=== PATIENT | female | born 1980 | race Caucasian/White ===

== ENCOUNTER 2018-03-30 11:36 | Inpatient (IN) | payer OTHER ==
[2018-03-30 12:08] VITALS: BMI 31.5
--- NOTE | 2018-03-30 13:47 | HP ---
COWS - Scale Resting Pulse: 0= [place] 80 or Below Sweatin=Flushed/Facial Moisture Restless Observation: 1= Difficult to Sit Still Pupil Size: 0= Normal to Room Light Bone or Joint Aches: 1= Mild Discomfort Runny Nose/ Eye Tearin= Runny Nose/Eyes GI Upset > 30mins: 1= Stomach Cramp Tremor Observation: 2= Slight Tremor Visible Yawning Observation: 1= 1-2x During Session Anxiety or Irritability: 1=Feels Anxious/Irritable Goose Flesh Skin: 3=Piloerection COWS Score: 14 CIWA Score - CIWA Score Nausea/Vomitin Muscle Tremors: 3 Anxiety: 3 Agitation: 3 Paroxysmal Sweats: 2 Orientation: 0-Oriented Tacttile Disturbances: 0-None Auditory Disturbances: 0-None Visual Disturbances: 0-None Headache: 0-None Present CIWA-Ar Total Score: 13 Admission ROS [facility] - HPI Chief Complaint: "i want to get clean" Allergies/Adverse Reactions: Allergies Allergy/AdvReac Type Severity Reaction Status Date / Time No Known Allergies Allergy Verified 03/30/18 13:40 History of Present Illness: 37 y/o with a ten yr hx of drug addiction presents requesting detox from alcohol , heroin. This is pt's first visit here but has been in previous detox. Endorses a 10 month sober period last yr due to being in [facility]. Pt's utox positive for Fentanyl, MTD and Bzo. Pt denies intentional ingestion of any of these, stating "it was probably cut from the dope" Hx of HTN, Anxiety/depression/bipolar (not on meds). Denies past nor curent SI/HI. Exam Limitations: No Limitations - Ebola screening Have you traveled outside of the country in the last 21 days: No Have you had contact with anyone from an Ebola affected area: No Have you been sick,other than usual withdrawal symptoms: No Do you have a fever: No - Review of Systems Constitutional: No Symptoms Reported EENT: reports: Blurred Vision (wears glasses but does not have them with her) Respiratory: reports: No Symptoms reported Cardiac: reports: No Symptoms Reported GI: reports: No Symptoms Reported : reports: No Symptoms Reported Musculoskeletal: reports: No Symptoms Reported Integumentary: reports: No Symptoms Reported Neuro: reports: No Symptoms reported Endocrine: reports: No Symptoms Reported Hematology: reports: Easy Bruising Psychiatric: reports: Judgement Intact, Mood/Affect Appropiate, Orientated x3 Other Systems: Reviewed and Negative Patient History - Patient Medical History Hx Anemia: No Hx Asthma: No Hx Chronic Obstructive Pulmonary Disease (COPD): No Hx Cancer: No Hx Cardiac Disorders: No Hx Congestive Heart Failure: No Hx Hypertension: No Hx Hypercholesterolemia: No Hx Pacemaker: No HX Cerebrovascular Accident: No Hx Seizures: No Hx Dementia: No Hx Diabetes: No Hx Gastrointestinal Disorders: No Hx Liver Disease: No Hx Genitourinary Disorders: No Hx Sexually Transmitted Disorders: Yes (Chlamydia "years ago") Hx Renal Disease (ESRD): No Hx Thyroid Disease: No Hx Human Immunodeficiency Virus (HIV): No (negative - last tested December 2017) Hx Hepatitis C: No Hx Depression: Yes (not on meds) Hx Suicide Attempt: No (Denies) Hx Bipolar Disorder: Yes (not on meds) Hx Schizophrenia: No - Patient Surgical History Past Surgical History: No Hx Neurologic Surgery: No Hx Cataract Extraction: No Hx Cardiac Surgery: No Hx Lung Surgery: No Hx Breast Surgery: No Hx Breast Biopsy: No Hx Abdominal Surgery: No Hx Appendectomy: No Hx Cholecystectomy: No Hx Genitourinary Surgery: No Hx Section: No Hx Orthopedic Surgery: No Hx Hysterectomy: No Other Surgical History: c/section x 2007 Anesthesia Reaction: No - PPD History Previous Implant?: No Documented Results: Negative w/o proof Implanted On Prior R Admission?: No PPD to be Administered?: Yes - Reproductive History Patient is a Female of Child Bearing Age (11 -55 yrs old): Yes Last Menstrual Period: 03/12/18 Patient : No - Smoking Cessation Smoking history: Former smoker Have you smoked in the past 12 months: No Initiated information on smoking cessation: Yes 'Breaking Loose' booklet given: 03/30/18 - Substance & Tx. History Hx Alcohol Use: Yes Hx Substance Use: Yes Substance Use Type: Alcohol, Cocaine, Heroin Hx Substance Use Treatment: Yes - Substances Abused Alcohol Route: Oral Frequency: Daily Amount used: A pint of vodka; 4(24 oz ) beer Age of first use: 27 Date of Last Use: 03/29/18 Heroin Route: Inhalation Frequency: Daily Amount used: 10 bags (1 bundle) Age of first use: 27 Date of Last Use: 03/30/18 Crack Route: Smoking Frequency: Daily Amount used: $100 Age of first use: 31 Date of Last Use: 03/30/18 Family Disease History - Family Disease History Family Disease History: Other: Father (Alcohol), Mother (Acohol), Brother ( heroin) Admission Physical Exam [facility] - Vital Signs Vital Signs: Vital Signs - 24 hr 03/30/18 12:02 Temperature 97.9 F Pulse Rate 72 Respiratory 20 Rate Blood Pressure 151/91 - Physical General Appearance: Yes: Mild Distress HEENTM: Yes: Within Normal Limits Respiratory: Yes: Within Normal Limits, No Respiratory Distress, No Accessory Muscle Use Neck: Yes: No masses,lesions,Nodules, Trachea in good position Breast: Yes: Breast Exam Deferred Cardiology: Yes: Regular Rate Abdominal: Yes: Normal Bowel Sounds, Non Tender, Soft, Distended Genitourinary: Yes: Within Normal Limits Back: Yes: Within Normal Limits, Normal Inspection Musculoskeletal: Yes: full range of Motion, Gait Steady Extremities: Yes: Within Normal Limits, Normal Capillary Refill, Normal Range of Motion Neurological: Yes: Within Normal Limits, Fully Oriented, Alert, Motor Strength 5 /5, Normal Mood/Affect Integumentary: Yes: Within Normal Limits Lymphatic: Yes: Within Normal Limits - Diagnostic (1) Uncomplicated opioid dependence Current Visit: Yes Status: Acute (2) Alcohol dependence, uncomplicated Current Visit: Yes Status: Acute (3) Cocaine dependence, uncomplicated Current Visit: Yes Status: Acute (4) Hx of essential hypertension Current Visit: Yes Status: Suspected (5) Drug-induced mood disorder Current Visit: Yes Status: Suspected (6) Anxiety and depression Current Visit: Yes Status: Suspected Cleared for Admission [facility] - Detox or Rehab [facility] Level of Care: Medically Managed Detox Regimen/Protocol: Methadone/Librium [facility] Breath Alcohol Content Breath Alcohol Content: 0 Urine Pregancy Test - Result Urine Test Results: Negative- NO Line Present Urine Drug Screen - Results Drug Screen Negative: No Urine Drug Screen Results: TIFFANY-Cocaine, BZO-Benzodiazepines, MTD-Methadone, FEN- Fentanyl
[2018-03-30] MEDS ORDERED: MAGNESIUM CITRATE 300 ML BOTTLE PO PRN (14:14)
[2018-03-30] MEDS ORDERED: chlordiazePOXIDE HCL 25 MG CAPSULE PO PRN (14:14)
[2018-03-30] MEDS ORDERED: LOPERAMIDE HCL 2 MG CAPSULE PO PRN (14:14)
[2018-03-30] MEDS ORDERED: P-EPHED 60MG/TRIPROLIDI 2.5MG TABLET PO PRN (14:14)
[2018-03-30] MEDS ORDERED: IBUPROFEN 400 MG TABLET (FP) PO PRN (14:14)
[2018-03-30] MEDS ORDERED: METHADONE HCL 10 MG TABLET (FOR DETOX USE ONLY) PO ONE ×2 (14:14→23:00)
[2018-03-30] MEDS ORDERED: MENTHOL/PHENOL 1 EACH UD MM PRN (14:14)
[2018-03-30] MEDS ORDERED: guaiFENesin/D-METHORPHAN HB 10 ML UNIT-DOSE CUPS PO PRN (14:14)
[2018-03-30] MEDS ORDERED: MAG HYDROX/AL HYDROX/SIMETH 30 ML UNIT-DOSE CUP PO PRN (14:14)
[2018-03-30] MEDS ORDERED: ACETAMINOPHEN 325 MG TABLET (FP) PO PRN (14:14)
[2018-03-30] MEDS ORDERED: MAGNESIUM HYDROX 2400MG/30ML ORAL SUSPENSION 30 ML CUP PO PRN (14:14)
--- NOTE | 2018-03-30 14:20 | PN ---
[facility] Progress Note Note: pt states she was on meds for HTN previously but her doctor took her off since 2013 when "I lost a lot of weight". Has not been on any HTN drugs since then. Also reports not being on meds for her psych hx for a long time s/p "I have been using".
[2018-03-30 17:51] LABS: URINE APPEARANCE SLCLOUDY; URINE BILIRUBIN NEGATIVE (<2.0 mg/dL); URINE COLOR LTYELLOW; URINE GLUCOSE (UA) NEGATIVE (NEGATIVE); URINE KETONE NEGATIVE (NEGATIVE); URINE LEUK ESTERASE TRACE (NEGATIVE); URINE NITRITE NEGATIVE (NEGATIVE); URINE PROTEIN NEGATIVE (NEGATIVE); URINE UROBILINOGEN NEGATIVE mg/dL (0.2-1.0)
[2018-03-30 17:56] LABS: EPI CELLS FEW /HPF (FEW); URINE MUCUS RARE
[2018-03-30] MEDS: chlordiazePOXIDE HCL 25 MG CAPSULE PO SCH ×2 (18:27→22:32)
[2018-03-30] MEDS: THIAMINE HCL 100 MG TABLET (FP) PO SCH (22:31)
[2018-03-31] MEDS: chlordiazePOXIDE HCL 25 MG CAPSULE PO SCH ×4 (05:33→22:16)
--- NOTE | 2018-03-31 08:49 | CONSULT ---
[facility] Psychiatric Consult - Data Date of interview: 03/31/18 Admission source: [facility] Identifying data: This is a 37 years old femlale, single mother of four, homeless, unemployed , on PA, with no psychiatric hospitalization history, reports withdrawal symptoms and seeking detox,. Denies suicidal, homicidal history. Substance Abuse History: - Smoking Cessation. Smoking history: Former smoker. Have you smoked in the past 12 months: No. Initiated information on smoking cessation: Yes. 'Breaking Loose' booklet given: 03/30/18. - Substance & Tx. History. Hx Alcohol Use: Yes. Hx Substance Use: Yes. Substance Use Type: Alcohol, Cocaine, Heroin. Hx Substance Use Treatment: Yes. - Substances Abused. Alcohol. Route: Oral. Frequency: Daily. Amount used: A pint of vodka; 4(24 oz ) beer. Age of first use: 27. Date of Last Use: 03/29/18. Heroin. Route: Inhalation. Frequency: Daily. Amount used: 10 bags (1 bundle) . Age of first use: 27. Date of Last Use: 03/30/18. Crack. Route: Smoking. Frequency: Daily. Amount used: $100. Age of first use: 31. Date of Last Use: 03/30/18 Medical History: HTN Psychiatric History: Patient reports history of depression, reports no medications taking prior to admission, denies sucidal and homicidal history. As per outpatint psychiatrist patient taking priorto admission: Gabapentin 600mg po tid Physical/Sexual Abuse/Trauma History: Denies Additional Comment: Observation. Detox Unit Care Protocol Psychiatric Findings - Problem List ([place] 1, 2,3) (1) Alcohol dependence, uncomplicated Current Visit: Yes Status: Acute (2) Cocaine dependence, uncomplicated Current Visit: Yes Status: Acute (3) Uncomplicated opioid dependence Current Visit: Yes Status: Acute (4) Anxiety and depression Current Visit: Yes Status: Suspected (5) Drug-induced mood disorder Current Visit: Yes Status: Suspected - Initial Treatment Plan Initial Treatment Plan: Observation. Detox Unit Care Protocol. Gabapentin 600mg po tid
[2018-03-31] MEDS ORDERED: METHADONE HCL 10 MG TABLET (FOR DETOX USE ONLY) PO SCH (10:00)
[2018-03-31] MEDS: PRENATAL VITAMINS W/ FOLIC ACID TABLET (FP) PO SCH (10:03)
--- NOTE | 2018-03-31 11:09 | PN ---
[facility] CIWA - CIWA Score Nausea/Vomitin-No Nausea/No Vomiting Muscle Tremors: 3 Anxiety: 3 Agitation: 4-Moderately Restless Paroxysmal Sweats: 3 Orientation: 0-Oriented Tacttile Disturbances: 0-None Auditory Disturbances: 0-None Visual Disturbances: 0-None Headache: 0-None Present CIWA-Ar Total Score: 13 [facility] COWS - Scale Resting Pulse: 0= [place] 80 or Below Sweatin=Flushed/Facial Moisture Restless Observation: 1= Difficult to Sit Still Pupil Size: 0= Normal to Room Light Bone or Joint Aches: 2= Severe Diffuse Aches Runny Nose/ Eye Tearin= Runny Nose/Eyes GI Upset > 30mins: 0= None Tremor Observation of Outstretched Hands: 2= Slight Tremor Visible Yawning Observation: 2= >3x During Session Anxiety or Irritability: 2=Irritable/Anxious Goose Flesh Skin: 0=Smooth Skin COWS Score: 13 S Progress Note (SOAP) Subjective: irritable agitation anxiety body aches interrupted sleep sweats Objective: 03/31/18 11:04 Vital Signs Temperature 98.1 F 03/31/18 09:42 Pulse Rate 72 03/31/18 09:42 Respiratory Rate 18 03/31/18 09:42 Blood Pressure 125/64 03/31/18 09:42 O2 Sat by Pulse Oximetry (%) Laboratory Tests 03/30/18 15:34 Urine Color Ltyellow Urine Appearance Slcloudy Urine pH 5.0 Ur Specific [place] 1.017 Urine Protein Negative Urine Glucose (UA) Negative Urine Ketones Negative Urine Blood Negative Urine Nitrite Negative Urine Bilirubin Negative Urine Urobilinogen Negative Ur Leukocyte Esterase Trace Urine WBC (Auto) 4 Urine RBC (Auto) 1 Ur Epithelial Cells Few Urine Mucus Rare rest of labs pending repeat u/a aaox3 ambulating no acute distress Assessment: 03/31/18 11:05 withdrawal sx Plan: continue detox increase fluids clonidine 0.1 daily with parameters
[2018-03-31 11:14] LABS: HEMATOCRIT 34.5 % (32.4-45.2); HEMOGLOBIN 11.1 GM/dL (10.7-15.3); MCH 26.9 pg (25.7-33.7); MCHC 32.1 g/dl (32.0-36.0); MEAN CELL VOLUME 83.7 fl (80-96); MEAN PLT VOLUME 8.3 fl (7.5-11.1); PLATELET COUNT 223 K/MM3 (134-434); RBC 4.12 M/mm3 (3.60-5.2); RDW 14.3 % (11.6-15.6); WHITE BLOOD COUNT 6.9 K/mm3 (4.0-10.0)
[2018-03-31 11:44] LABS: ALBUMIN 3.1 g/dl (3.4-5.0); ALK PHOS 97 U/L (45-117); ANION GAP 7 MMOL/L (8-16); BILIRUBIN,TOTAL 0.2 mg/dL (0.2-1); BLOOD UREA NITROGEN 24 mg/dL (7-18); CALCIUM 8.3 mg/dL (8.5-10.1); CHLORIDE 107 mmol/L (98-107); CO2 26 mmol/L (21-32); CREATININE 0.5 mg/dL (0.55-1.3); GLUCOSE,RANDOM 79 mg/dL (74-106); POTASSIUM 4.4 mmol/L (3.5-5.1); SGOT/AST 14 U/L (15-37); SGPT/ALT 40 U/L (13-61); SODIUM 140 mmol/L (136-145)
[2018-03-31] MEDS: cloNIDine HCL 0.1 MG TABLET PO SCH (12:04)
[2018-03-31] MEDS: GABAPENTIN 300 MG CAPSULE (FP) PO SCH ×2 (15:59→22:16)
--- NOTE | 2018-03-31 21:33 | EKG ---
Test Reason : Blood Pressure : / mmHG Vent. Rate : 070 BPM Atrial Rate : 070 BPM P-R Int : 152 ms QRS Dur : 102 ms QT Int : 412 ms P-R-T Axes : 065 057 032 degrees QTc Int : 444 ms NORMAL SINUS RHYTHM MINIMAL VOLTAGE CRITERIA FOR LVH, MAY BE NORMAL VARIANT BORDERLINE ECG NO PREVIOUS ECGS AVAILABLE Confirmed by JAYDE JESUS, CLINTON ([id number]) on 03/31/2018 9:32:46 PM Referred By: Loree Saba Confirmed By:CLINTON DONOHUE MD
[2018-03-31] MEDS: THIAMINE HCL 100 MG TABLET (FP) PO SCH (22:16)
[2018-03-31] MEDS: MELATONIN 5 MG TABLETS PO PRN (22:16)
[2018-04-01] MEDS: chlordiazePOXIDE HCL 25 MG CAPSULE PO SCH ×2 (05:58→10:24)
[2018-04-01] MEDS: GABAPENTIN 300 MG CAPSULE (FP) PO SCH ×3 (05:58→22:20)
[2018-04-01] MEDS: cloNIDine HCL 0.1 MG TABLET PO SCH (10:24)
[2018-04-01] MEDS: METHADONE HCL 5 MG TABLET (FOR DETOX USE ONLY) PO SCH (10:24)
[2018-04-01] MEDS: PRENATAL VITAMINS W/ FOLIC ACID TABLET (FP) PO SCH (10:24)
[2018-04-01] MEDS ORDERED: FLU VACCINE QUAD 60 MCG/0.5 ML (MDV 18-19) IM ONE (12:00)
[2018-04-01] MEDS ORDERED: PNEUMOCOCCAL 23 VACCINE 0.5 ML VIAL IM ONE (12:00)
[2018-04-01] MEDS ORDERED: PNEUMOC 13-VAL CONJ-DIP CRM/PF 0.5 ML DISP.SYRIN IM ONE (12:06)
--- NOTE | 2018-04-01 12:10 | PN ---
[facility] CIWA - CIWA Score Nausea/Vomitin-No Nausea/No Vomiting Muscle Tremors: 3 Anxiety: 2 Agitation: 3 Paroxysmal Sweats: 3 Orientation: 0-Oriented Tacttile Disturbances: 0-None Auditory Disturbances: 0-None Visual Disturbances: 0-None Headache: 0-None Present CIWA-Ar Total Score: 11 S COWS - Scale Resting Pulse: 1= [place] 81-100 Sweatin=Flushed/Facial Moisture Restless Observation: 1= Difficult to Sit Still Pupil Size: 0= Normal to Room Light Bone or Joint Aches: 1= Mild Discomfort Runny Nose/ Eye Tearin= Nasal Congestion GI Upset > 30mins: 0= None Tremor Observation of Outstretched Hands: 2= Slight Tremor Visible Yawning Observation: 1= 1-2x During Session Anxiety or Irritability: 2=Irritable/Anxious Goose Flesh Skin: 0=Smooth Skin COWS Score: 11 [facility] Progress Note (SOAP) Subjective: sweats irritable agitation anxiety Objective: 04/01/18 12:09 Vital Signs Temperature 98.8 F 04/01/18 09:31 Pulse Rate 87 04/01/18 09:31 Respiratory Rate 18 04/01/18 09:31 Blood Pressure 135/85 04/01/18 09:31 O2 Sat by Pulse Oximetry (%) Laboratory Tests 03/30/18 03/31/18 03/31/18 15:34 07:20 07:20 WBC 6.9 RBC 4.12 Hgb 11.1 Hct 34.5 MCV 83.7 MCH 26.9 MCHC 32.1 RDW 14.3 Plt Count 223 MPV 8.3 Sodium 140 Potassium 4.4 Chloride 107 Carbon Dioxide 26 Anion Gap 7 L BUN 24 H Creatinine 0.5 L Creat Clearance w eGFR > 60 Random Glucose 79 Calcium 8.3 L Total Bilirubin 0.2 AST 14 L ALT 40 Alkaline Phosphatase 97 Total Protein 6.0 L Albumin 3.1 L Urine Color Ltyellow Urine Appearance Slcloudy Urine pH 5.0 Ur Specific [place] 1.017 Urine Protein Negative Urine Glucose (UA) Negative Urine Ketones Negative Urine Blood Negative Urine Nitrite Negative Urine Bilirubin Negative Urine Urobilinogen Negative Ur Leukocyte Esterase Trace Urine WBC (Auto) 4 Urine RBC (Auto) 1 Ur Epithelial Cells Few Urine Mucus Rare RPR Titer 03/31/18 07:20 WBC RBC Hgb Hct MCV MCH MCHC RDW Plt Count MPV Sodium Potassium Chloride Carbon Dioxide Anion Gap BUN Creatinine Creat Clearance w eGFR Random Glucose Calcium Total Bilirubin AST ALT Alkaline Phosphatase Total Protein Albumin Urine Color Urine Appearance Urine pH Ur Specific Loda Urine Protein Urine Glucose (UA) Urine Ketones Urine Blood Urine Nitrite Urine Bilirubin Urine Urobilinogen Ur Leukocyte Esterase Urine WBC (Auto) Urine RBC (Auto) Ur Epithelial Cells Urine Mucus RPR Titer Nonreactive aaox3 ambulating no acute distress Assessment: 04/01/18 12:09 withdrawal sx Plan: continue detox increase fluids
[2018-04-01] MEDS: chlordiazePOXIDE 5 MG CAPSULE PO SCH ×2 (17:24→22:20)
[2018-04-01] MEDS: THIAMINE HCL 100 MG TABLET (FP) PO SCH (22:20)
[2018-04-01] MEDS: MELATONIN 5 MG TABLETS PO PRN (22:21)
[2018-04-02] MEDS: chlordiazePOXIDE 5 MG CAPSULE PO SCH ×2 (05:27→10:01)
[2018-04-02] MEDS: GABAPENTIN 300 MG CAPSULE (FP) PO SCH (05:27)
[2018-04-02 09:35] VITALS: BP 128/72; PULSE 86; TEMP 98.4
[2018-04-02] MEDS: PRENATAL VITAMINS W/ FOLIC ACID TABLET (FP) PO SCH (10:01)
[2018-04-02] MEDS: cloNIDine HCL 0.1 MG TABLET PO SCH (10:01)
[2018-04-02] MEDS: METHADONE HCL 5 MG TABLET (FOR DETOX USE ONLY) PO SCH (10:01)
--- NOTE | 2018-04-02 12:09 | PN ---
[facility] Progress Note Note: pt states she needs to go home d/t family issues. no s/s of withdrawals noted. Pt signed out AMA.
--- NOTE | 2018-04-02 12:10 | DS ---
[facility] Detox Discharge Summary Admission Date: 03/30/18 - History Present History: Alcohol Dependence, Cocaine Dependence, Opioid Dependence - Physical Exam Results Vital Signs: Vital Signs Temperature 98.4 F 04/02/18 09:35 Pulse Rate 86 04/02/18 09:35 Respiratory Rate 18 04/02/18 09:35 Blood Pressure 128/72 04/02/18 09:35 O2 Sat by Pulse Oximetry (%) - Treatment Hospital Course: Detox Protocol Followed, Responded well, Discharged Condition Good - Medication Discharge Medications: Ambulatory Orders Gabapentin [Neurontin -] 600 mg PO TID #90 capsule 03/31/18 - Diagnosis (1) Alcohol dependence, uncomplicated Current Visit: Yes Status: Chronic (2) Cocaine dependence, uncomplicated Current Visit: Yes Status: Chronic (3) Uncomplicated opioid dependence Current Visit: Yes Status: Acute (4) Anxiety and depression Current Visit: Yes Status: Chronic (5) Drug-induced mood disorder Current Visit: Yes Status: Suspected (6) Hx of essential hypertension Current Visit: Yes Status: Suspected - AMA Did Patient Leave Against Medical Advice: Yes (going home. )
[2018-04-02] MEDS ORDERED: chlordiazePOXIDE HCL 10 MG CAPSULE PO SCH (17:00)
[2018-04-03] MEDS ORDERED: METHADONE HCL 10 MG TABLET (FOR DETOX USE ONLY) PO ONE (06:00)
[2018-04-03] MEDS ORDERED: METHADONE HCL 10 MG TABLET (FOR DETOX USE ONLY) PO SCH (10:00)
[2018-04-04] MEDS ORDERED: METHADONE HCL 5 MG TABLET (FOR DETOX USE ONLY) PO SCH (06:00)
== END 2018-04-02 12:30 | disposition left against medical advice (07) | DRG 770 ==
LOC: YASAS 11:36 → Y6N 14:48
PROC: HZ2ZZZZ Detoxification Services for Substance Abuse Treatment (ICD-10-PCS; principal; 2018-03-30)
DX: F11.23 Opioid dependence with withdrawal (principal); F10.230 Alcohol dependence with withdrawal, uncomplicated; F14.20 Cocaine dependence, uncomplicated; F41.8 Other specified anxiety disorders; Z87.42 Personal history of other diseases of the female genital tract; Z87.891 Personal history of nicotine dependence; Z59.0 Homelessness
CPT/HCPCS: 36415; 80053; 81003; 81015; 85027; 86593; 90688; 90732; 93005; 93010; G0008; G0009; J0735

== ENCOUNTER 2018-05-07 16:42 | Inpatient (IN) | payer OTHER ==
[~2018-05-07 16:42] MED LIST: METHADONE HCL 10 MG TABLET (FOR DETOX USE ONLY) PO ONE
[2018-05-07 18:31] VITALS: BMI 31.8
[2018-05-07] MEDS ORDERED: MELATONIN 5 MG TABLETS PO PRN (22:00)
[2018-05-07] MEDS ORDERED: METHADONE HCL 10 MG TABLET (FOR DETOX USE ONLY) PO ONE ×2 (23:00→23:19)
--- NOTE | 2018-05-07 23:08 | HP ---
COWS - Scale Resting Pulse: 1= [place] 81-100 Sweatin=Flushed/Facial Moisture Restless Observation: 1= Difficult to Sit Still Pupil Size: 0= Normal to Room Light Bone or Joint Aches: 4=Acute Joint/Muscle Pain Runny Nose/ Eye Tearin= Runny Nose/Eyes GI Upset > 30mins: 1= Stomach Cramp Tremor Observation: 4= Gross Tremor/Twitching Yawning Observation: 0= None Anxiety or Irritability: 2=Irritable/Anxious Goose Flesh Skin: 0=Smooth Skin COWS Score: 17 CIWA Score Nausea/Vomitin-Mild Nausea/No Vomiting Muscle Tremors: 4-Moderate,w/Arms Extend Anxiety: 4-Mod. Anxious/Guarded Agitation: 3 Paroxysmal Sweats: 1-Minimal Palms Moist Orientation: 0-Oriented Tacttile Disturbances: 0-None Auditory Disturbances: 0-None Visual Disturbances: 1-Very Mild Sensitivity Headache: 2-Mild CIWA-Ar Total Score: 16 - Admission Criteria [facility] Guidelines: Admission for Medically Managed Detox: Requires at least one of the followin. CIWA greater than 12 2. Seizures within the past 24 hours 3. Delirium tremens within the past 24 hours 4. Hallucinations within the past 24 hours 5. Acute intervention needed for co occurring medical disorder 6. Acute intervention needed for co occurring psychiatric disorder 7. Severe withdrawal that cannot be handled at a lower level of care (continued vomiting, continued diarrhea, abnormal vital signs) requiring intravenous medication and/or fluids 8. Admission ROS [facility] Chief Complaint: HEROIN AND ALCOHOL WITHDRAWAL SYMPTOMS Allergies/Adverse Reactions: Allergies Allergy/AdvReac Type Severity Reaction Status Date / Time No Known Allergies Allergy Verified 05/07/18 21:51 History of Present Illness: 37 years old female with a long history of alcohol and heroin dependence is seeking admission to detox. Patient was in detox 03/30/2018-04/02/2018 at [facility] and reports 18 months of sobriety. She has medical history of hypertension, depression and anxiety. He denies suicide attempt and suicidal ideation at this time Exam Limitations: No Limitations - Ebola screening Have you traveled outside of the country in the last 21 days: No Have you had contact with anyone from an Ebola affected area: No Have you been sick,other than usual withdrawal symptoms: No Do you have a fever: No - Review of Systems Constitutional: Chills, Malaise, Changes in sleep, Weakness EENT: reports: Nose Congestion Respiratory: reports: No Symptoms reported Cardiac: reports: No Symptoms Reported GI: reports: Nausea, Poor Appetite, Poor Fluid Intake, Abdominal cramping : reports: No Symptoms Reported Musculoskeletal: reports: Back Pain Integumentary: reports: No Symptoms Reported Neuro: reports: Headache, Tremors Endocrine: reports: No Symptoms Reported Hematology: reports: No Symptoms Reported Psychiatric: reports: Mood/Affect Appropiate, Orientated x3 Other Systems: Reviewed and Negative Patient History - Patient Medical History Hx Anemia: No Hx Asthma: No Hx Chronic Obstructive Pulmonary Disease (COPD): No Hx Cancer: No Hx Cardiac Disorders: No Hx Congestive Heart Failure: No Hx Hypertension: Yes Hx Hypercholesterolemia: No Hx Pacemaker: No HX Cerebrovascular Accident: No Hx Seizures: No Hx Dementia: No Hx Diabetes: No Hx Gastrointestinal Disorders: No Hx Liver Disease: No Hx Genitourinary Disorders: No Hx Sexually Transmitted Disorders: No Hx Renal Disease (ESRD): No Hx Thyroid Disease: No Hx Human Immunodeficiency Virus (HIV): No (Negative - last tested December 2017) Hx Hepatitis C: No Hx Depression: Yes (Not on meds) Hx Suicide Attempt: No (Denies suicidal ideation at this time) Hx Bipolar Disorder: Yes (Not on meds) Hx Schizophrenia: No Other Medical History: Anxiety -Not on mdication - Patient Surgical History Past Surgical History: No Hx Neurologic Surgery: No Hx Cataract Extraction: No Hx Cardiac Surgery: No Hx Lung Surgery: No Hx Breast Surgery: No Hx Breast Biopsy: No Hx Abdominal Surgery: No Hx Appendectomy: No Hx Cholecystectomy: No Hx Genitourinary Surgery: No Hx Section: No Hx Orthopedic Surgery: No Hx Hysterectomy: No Other Surgical History: c/section x 2007 Anesthesia Reaction: No - PPD History Date: 04/01/18 - Reproductive History Patient is a Female of Child Bearing Age (11 -55 yrs old): Yes Last Menstrual Period: 04/13/18 Patient : No - Smoking Cessation Smoking history: Former smoker Have you smoked in the past 12 months: No Hx Chewing Tobacco Use: No Initiated information on smoking cessation: No - Substance & Tx. History Hx Alcohol Use: No Hx Substance Use: No Substance Use Type: Alcohol, Cocaine, Opiates Hx Substance Use Treatment: Yes ([facility]) - Substances Abused Alcohol Route: Oral Frequency: Daily Amount used: 3 CANS BEER Age of first use: 14 Date of Last Use: 05/07/18 Heroin Route: Injection Frequency: Daily Amount used: 2 BUNDLE Age of first use: 19 Date of Last Use: 05/07/18 Family Disease History - Family Disease History Family Disease History: Other: Father (Alcohol), Mother (Acohol), Brother ( heroin) Admission Physical Exam [facility] - Vital Signs Vital Signs: Vital Signs - 24 hr 05/07/18 18:29 Temperature 97.6 F Pulse Rate 86 Respiratory 18 Rate Blood Pressure 150/90 - Physical General Appearance: Yes: Moderate Distress HEENTM: Yes: EOMI, Normal ENT Inspection, Normocephalic, Normal Voice, FADUMO Respiratory: Yes: Lungs Clear, Normal Breath Sounds, No Respiratory Distress Neck: Yes: Supple Breast: Yes: Breast Exam Deferred Cardiology: Yes: Regular Rhythm, Regular Rate Abdominal: Yes: Normal Bowel Sounds Genitourinary: Yes: Within Normal Limits Back: Yes: Normal Inspection Musculoskeletal: Yes: Within Normal Limits Extremities: Yes: Tremors 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 NML intact, Alert, Normal Mood/Affect Integumentary: Yes: Within Normal Limits Lymphatic: Yes: Within Normal Limits - Diagnostic (1) Depression Current Visit: Yes Status: Acute (2) Anxiety Current Visit: Yes Status: Chronic (3) Hypertension Current Visit: Yes Status: Chronic (4) Nicotine dependence Current Visit: Yes Status: Chronic Qualifiers: Nicotine product type: cigarettes Substance use status: uncomplicated Qualified Code(s): F17.210 - Nicotine dependence, cigarettes, uncomplicated (5) Uncomplicated opioid dependence Current Visit: No Status: Chronic (6) Alcohol dependence, uncomplicated Current Visit: No Status: Chronic (7) Cocaine dependence, uncomplicated Current Visit: No Status: Chronic Cleared for Admission [facility] - Detox or Rehab [facility] Level of Care: Medically Managed Detox Regimen/Protocol: Methadone/Librium [facility] Breath Alcohol Content Breath Alcohol Content: 0 Urine Pregancy Test - Result Urine Test Results: Negative- NO Line Present Urine Drug Screen - Results Drug Screen Negative: No Urine Drug Screen Results: TIFFANY-Cocaine, OPI-Opiates, BZO-Benzodiazepines
[2018-05-07] MEDS ORDERED: LOPERAMIDE HCL 2 MG CAPSULE PO PRN (23:25)
[2018-05-07] MEDS ORDERED: MAG HYDROX/AL HYDROX/SIMETH 30 ML UNIT-DOSE CUP PO PRN (23:25)
[2018-05-07] MEDS ORDERED: MAGNESIUM CITRATE 300 ML BOTTLE PO PRN (23:25)
[2018-05-07] MEDS ORDERED: MENTHOL/PHENOL 1 EACH UD MM PRN (23:25)
[2018-05-07] MEDS ORDERED: MAGNESIUM HYDROX 2400MG/30ML ORAL SUSPENSION 30 ML CUP PO PRN (23:25)
[2018-05-07] MEDS ORDERED: IBUPROFEN 400 MG TABLET (FP) PO PRN (23:25)
[2018-05-07] MEDS ORDERED: ACETAMINOPHEN 325 MG TABLET (FP) PO PRN (23:25)
[2018-05-07] MEDS: chlordiazePOXIDE HCL 25 MG CAPSULE PO SCH (23:44)
[2018-05-08] MEDS: chlordiazePOXIDE HCL 25 MG CAPSULE PO SCH ×4 (06:01→22:03)
[2018-05-08] MEDS: guaiFENesin/D-METHORPHAN HB 10 ML UNIT-DOSE CUPS PO PRN ×3 (06:19→22:03)
[2018-05-08] MEDS: P-EPHED 60MG/TRIPROLIDI 2.5MG TABLET PO PRN ×2 (06:21→22:07)
[2018-05-08] MEDS ORDERED: METHADONE HCL 10 MG TABLET (FOR DETOX USE ONLY) PO SCH (10:00)
[2018-05-08] MEDS: PRENATAL VITAMINS W/ FOLIC ACID TABLET (FP) PO SCH (10:35)
[2018-05-08 10:39] LABS: HEMATOCRIT 34.4 % (32.4-45.2); HEMOGLOBIN 11.9 GM/dL (10.7-15.3); MCH 28.5 pg (25.7-33.7); MCHC 34.7 g/dl (32.0-36.0); MEAN CELL VOLUME 82.2 fl (80-96); PLATELET COUNT 274 K/MM3 (134-434); RBC 4.18 M/mm3 (3.60-5.2); RDW 14.6 % (11.6-15.6); WHITE BLOOD COUNT 7.4 K/mm3 (4.0-10.0)
--- NOTE | 2018-05-08 10:39 | PN ---
[facility] CIWA - CIWA Score Nausea/Vomitin-Mild Nausea/No Vomiting Muscle Tremors: 3 Anxiety: 3 Agitation: 2 Paroxysmal Sweats: 1-Minimal Palms Moist Orientation: 1-Uncertain about Date Tacttile Disturbances: 1-Very Mild Itch/Numbness Auditory Disturbances: 1-Very Mild Visual Disturbances: 0-None Headache: 1-Very Mild CIWA-Ar Total Score: 14 [facility] COWS - Scale Resting Pulse: 0= [place] 80 or Below Sweatin= Chills/Flushing Restless Observation: 1= Difficult to Sit Still Pupil Size: 0= Normal to Room Light Bone or Joint Aches: 2= Severe Diffuse Aches Runny Nose/ Eye Tearin= Nasal Congestion GI Upset > 30mins: 2= Nausea/Diarrhea Tremor Observation of Outstretched Hands: 2= Slight Tremor Visible Yawning Observation: 1= 1-2x During Session Anxiety or Irritability: 1=Feels Anxious/Irritable Goose Flesh Skin: 3=Piloerection COWS Score: 14 S Progress Note (SOAP) Subjective: sweat tremor anxiety restlessness body aches joints pain Objective: 05/08/18 10:41 Vital Signs Temperature 98.4 F 05/08/18 09:50 Pulse Rate 79 05/08/18 09:50 Respiratory Rate 18 05/08/18 09:50 Blood Pressure 135/72 05/08/18 09:50 O2 Sat by Pulse Oximetry (%) lab pending Assessment: 05/08/18 10:41 withdrawal sx Plan: continue detox
[2018-05-08 10:47] LABS: URINE APPEARANCE CLOUDY; URINE BILIRUBIN NEGATIVE (<2.0 mg/dL); URINE COLOR YELLOW; URINE GLUCOSE (UA) NEGATIVE (NEGATIVE); URINE KETONE NEGATIVE (NEGATIVE); URINE LEUK ESTERASE 2+ (NEGATIVE); URINE NITRITE NEGATIVE (NEGATIVE); URINE PROTEIN NEGATIVE (NEGATIVE); URINE UROBILINOGEN NEGATIVE mg/dL (0.2-1.0)
[2018-05-08 11:00] LABS: EPI CELLS MANY /HPF (FEW)
[2018-05-08 11:35] LABS: ALBUMIN 3.8 g/dl (3.4-5.0); ALK PHOS 95 U/L (45-117); ANION GAP 15 MMOL/L (8-16); BILIRUBIN,TOTAL 0.5 mg/dL (0.2-1); BLOOD UREA NITROGEN 20 mg/dL (7-18); CALCIUM 8.7 mg/dL (8.5-10.1); CHLORIDE 106 mmol/L (98-107); CO2 19 mmol/L (21-32); CREATININE 0.8 mg/dL (0.55-1.3); GLUCOSE,RANDOM 69 mg/dL (74-106); POTASSIUM 4.1 mmol/L (3.5-5.1); SGOT/AST 21 U/L (15-37); SGPT/ALT 23 U/L (13-61); SODIUM 141 mmol/L (136-145); TOT PROT 7.3 g/dl (6.4-8.2)
[2018-05-08] MEDS: chlordiazePOXIDE HCL 25 MG CAPSULE PO PRN (13:15)
[2018-05-08] MEDS: BACLOFEN 10 MG TABLET (FP) PO PRN (13:15)
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
[2018-05-08] MEDS: GABAPENTIN 300 MG CAPSULE (FP) PO SCH (22:03)
[2018-05-08] MEDS: traZODone HCL 50 MG TABLET (FP) PO SCH (22:03)
[2018-05-08] MEDS: THIAMINE HCL 100 MG TABLET (FP) PO SCH (22:03)
[2018-05-09] MEDS: chlordiazePOXIDE HCL 25 MG CAPSULE PO SCH ×3 (05:25→17:25)
[2018-05-09] MEDS ORDERED: AZITHROMYCIN 250 MG TABLET PO ONE (09:10)
[2018-05-09] MEDS: METHADONE HCL 5 MG TABLET (FOR DETOX USE ONLY) PO SCH (10:12)
[2018-05-09] MEDS: GABAPENTIN 300 MG CAPSULE (FP) PO SCH ×2 (10:12→22:07)
[2018-05-09] MEDS: FLUTICASONE PROP 0.05% 16 GM NASAL SPRAY NS SCH (10:12)
[2018-05-09] MEDS: PRENATAL VITAMINS W/ FOLIC ACID TABLET (FP) PO SCH (10:12)
[2018-05-09] MEDS: BACLOFEN 10 MG TABLET (FP) PO PRN (10:12)
--- NOTE | 2018-05-09 13:05 | PN ---
[facility] CIWA - CIWA Score Nausea/Vomitin-No Nausea/No Vomiting Muscle Tremors: 2 Anxiety: 4-Mod. Anxious/Guarded Agitation: 4-Moderately Restless Paroxysmal Sweats: 2 Orientation: 0-Oriented Tacttile Disturbances: 0-None Auditory Disturbances: 0-None Visual Disturbances: 0-None Headache: 0-None Present CIWA-Ar Total Score: 12 S COWS - Scale Resting Pulse: 0= [place] 80 or Below Sweatin=Flushed/Facial Moisture Restless Observation: 1= Difficult to Sit Still Pupil Size: 2= Moderately Dilated Bone or Joint Aches: 0= None Runny Nose/ Eye Tearin= None GI Upset > 30mins: 1= Stomach Cramp Tremor Observation of Outstretched Hands: 2= Slight Tremor Visible Yawning Observation: 0= None Anxiety or Irritability: 2=Irritable/Anxious Goose Flesh Skin: 0=Smooth Skin COWS Score: 10 S Progress Note (SOAP) Subjective: PATIENT C/O COUGH WITH YELLOW SPUTUM, ANXIETY, SHAKES AND SWEATING. Objective: 05/09/18 13:03 Vital Signs Temperature 98.4 F 05/09/18 09:49 Pulse Rate 76 05/09/18 09:49 Respiratory Rate 108 H 05/09/18 09:49 Blood Pressure 147/82 05/09/18 09:49 O2 Sat by Pulse Oximetry (%) Laboratory Tests 05/08/18 05/08/18 05/08/18 07:40 07:40 07:40 WBC 7.4 RBC 4.18 Hgb 11.9 Hct 34.4 MCV 82.2 MCH 28.5 MCHC 34.7 RDW 14.6 Plt Count 274 D MPV 9.0 Sodium 141 Potassium 4.1 Chloride 106 Carbon Dioxide 19 L Anion Gap 15 BUN 20 H Creatinine 0.8 Creat Clearance w eGFR > 60 Random Glucose 69 L Calcium 8.7 Total Bilirubin 0.5 AST 21 ALT 23 Alkaline Phosphatase 95 Total Protein 7.3 Albumin 3.8 Urine Color Urine Appearance Urine pH Ur Specific [place] Urine Protein Urine Glucose (UA) Urine Ketones Urine Blood Urine Nitrite Urine Bilirubin Urine Urobilinogen Ur Leukocyte Esterase Urine WBC (Auto) Urine RBC (Auto) Ur Epithelial Cells RPR Titer Nonreactive 05/08/18 07:40 WBC RBC Hgb Hct MCV MCH MCHC RDW Plt Count MPV Sodium Potassium Chloride Carbon Dioxide Anion Gap BUN Creatinine Creat Clearance w eGFR Random Glucose Calcium Total Bilirubin AST ALT Alkaline Phosphatase Total Protein Albumin Urine Color Yellow Urine Appearance Cloudy Urine pH 5.0 Ur Specific [place] 1.020 Urine Protein Negative Urine Glucose (UA) Negative Urine Ketones Negative Urine Blood Negative Urine Nitrite Negative Urine Bilirubin Negative Urine Urobilinogen Negative Ur Leukocyte Esterase 2+ H Urine WBC (Auto) 15 Urine RBC (Auto) 5 Ur Epithelial Cells Many RPR Titer PE: SKIN + FACIAL FLUSHING ALERT AND ORIENTED X 3 CAR S1S2 RESP FAINT SCATTERED WHEEZES BUL EXT FULL ROM, +TREMORS, NO EDEMA AMB AD [place] ANXIOUS Assessment: 05/09/18 13:04 WITHDRAWAL SX Plan: CONTINUE DETOX ENCOURAGE ORAL FLUIDS START ZPAK FOR COUGH CONTINUE TO MONITOR
[2018-05-09] MEDS: chlordiazePOXIDE HCL 25 MG CAPSULE PO PRN (13:13)
[2018-05-09] MEDS: chlordiazePOXIDE 5 MG CAPSULE PO SCH (22:07)
[2018-05-09] MEDS: THIAMINE HCL 100 MG TABLET (FP) PO SCH (22:07)
[2018-05-09] MEDS: traZODone HCL 50 MG TABLET (FP) PO SCH (22:07)
[2018-05-10] MEDS: chlordiazePOXIDE 5 MG CAPSULE PO SCH ×3 (05:36→17:39)
[2018-05-10] MEDS: GABAPENTIN 300 MG CAPSULE (FP) PO SCH ×2 (10:16→22:08)
[2018-05-10] MEDS: PRENATAL VITAMINS W/ FOLIC ACID TABLET (FP) PO SCH (10:16)
[2018-05-10] MEDS: AZITHROMYCIN 250 MG TABLET PO SCH (10:16)
[2018-05-10] MEDS: FLUTICASONE PROP 0.05% 16 GM NASAL SPRAY NS SCH (10:16)
[2018-05-10] MEDS: METHADONE HCL 5 MG TABLET (FOR DETOX USE ONLY) PO SCH (10:16)
--- NOTE | 2018-05-10 11:16 | PN ---
[facility] Progress Note (SOAP) Subjective: States feeling much better. Having some mild anxiety. Objective: A&O x 3. Vital Signs 05/10/18 05/10/18 05/10/18 03:30 06:00 10:33 Temperature 98.1 F 98.4 F Pulse Rate 66 84 Respiratory 16 18 16 Rate Blood Pressure 128/77 146/93 Laboratory Last Values WBC 7.4 K/mm3 (4.0-10.0) 05/08/18 07:40 RBC 4.18 M/mm3 (3.60-5.2) 05/08/18 07:40 Hgb 11.9 GM/dL (10.7-15.3) 05/08/18 07:40 Hct 34.4 % (32.4-45.2) 05/08/18 07:40 MCV 82.2 fl (80-96) 05/08/18 07:40 MCH 28.5 pg (25.7-33.7) 05/08/18 07:40 MCHC 34.7 g/dl (32.0-36.0) 05/08/18 07:40 RDW 14.6 % (11.6-15.6) 05/08/18 07:40 Plt Count 274 K/MM3 (134-434) D 05/08/18 07:40 MPV 9.0 fl (7.5-11.1) 05/08/18 07:40 Sodium 141 mmol/L (136-145) 05/08/18 07:40 Potassium 4.1 mmol/L (3.5-5.1) 05/08/18 07:40 Chloride 106 mmol/L (98-107) 05/08/18 07:40 Carbon Dioxide 19 mmol/L (21-32) L 05/08/18 07:40 Anion Gap 15 MMOL/L (8-16) 05/08/18 07:40 BUN 20 mg/dL (7-18) H 05/08/18 07:40 Creatinine 0.8 mg/dL (0.55-1.3) 05/08/18 07:40 Creat Clearance w eGFR > 60 (>60) 05/08/18 07:40 Random Glucose 69 mg/dL (74-106) L 05/08/18 07:40 Calcium 8.7 mg/dL (8.5-10.1) 05/08/18 07:40 Total Bilirubin 0.5 mg/dL (0.2-1) 05/08/18 07:40 AST 21 U/L (15-37) 05/08/18 07:40 ALT 23 U/L (13-61) 05/08/18 07:40 Alkaline Phosphatase 95 U/L (45-117) 05/08/18 07:40 Total Protein 7.3 g/dl (6.4-8.2) 05/08/18 07:40 Albumin 3.8 g/dl (3.4-5.0) 05/08/18 07:40 Urine Color Yellow 05/08/18 07:40 Urine Appearance Cloudy 05/08/18 07:40 Urine pH 5.0 (5.0-8.0) 05/08/18 07:40 Ur Specific [place] 1.020 (1.010-1.035) 05/08/18 07:40 Urine Protein Negative (NEGATIVE) 05/08/18 07:40 Urine Glucose (UA) Negative (NEGATIVE) 05/08/18 07:40 Urine Ketones Negative (NEGATIVE) 05/08/18 07:40 Urine Blood Negative (NEGATIVE) 05/08/18 07:40 Urine Nitrite Negative (NEGATIVE) 05/08/18 07:40 Urine Bilirubin Negative (<2.0 mg/dL) 05/08/18 07:40 Urine Urobilinogen Negative mg/dL (0.2-1.0) 05/08/18 07:40 Ur Leukocyte Esterase 2+ (NEGATIVE) H 05/08/18 07:40 Urine WBC (Auto) 15 /hpf (3-5) 05/08/18 07:40 Urine RBC (Auto) 5 /hpf (0-3) 05/08/18 07:40 Ur Epithelial Cells Many /HPF (FEW) 05/08/18 07:40 RPR Titer Nonreactive (NONREACTIVE) 05/08/18 07:40 Labs reviewed. Assessment: Withdrawal symptoms. Plan: Continue detox.
[2018-05-10] MEDS: chlordiazePOXIDE HCL 25 MG CAPSULE PO PRN (12:36)
[2018-05-10] MEDS: P-EPHED 60MG/TRIPROLIDI 2.5MG TABLET PO PRN (17:42)
[2018-05-10] MEDS: THIAMINE HCL 100 MG TABLET (FP) PO SCH (22:08)
[2018-05-10] MEDS: traZODone HCL 50 MG TABLET (FP) PO SCH (22:08)
[2018-05-10] MEDS: chlordiazePOXIDE HCL 10 MG CAPSULE PO SCH (22:10)
[2018-05-11] MEDS: chlordiazePOXIDE HCL 10 MG CAPSULE PO SCH (05:10)
[2018-05-11 06:13] VITALS: BP 133/68; PULSE 65; TEMP 97.9
[2018-05-11] MEDS: BACLOFEN 10 MG TABLET (FP) PO PRN (09:20)
[2018-05-11] MEDS: FLUTICASONE PROP 0.05% 16 GM NASAL SPRAY NS SCH (09:20)
[2018-05-11] MEDS: PRENATAL VITAMINS W/ FOLIC ACID TABLET (FP) PO SCH (09:20)
[2018-05-11] MEDS: GABAPENTIN 300 MG CAPSULE (FP) PO SCH (09:20)
[2018-05-11] MEDS: AZITHROMYCIN 250 MG TABLET PO SCH (09:20)
[2018-05-11] MEDS ORDERED: METHADONE HCL 10 MG TABLET (FOR DETOX USE ONLY) PO SCH (10:00)
--- NOTE | 2018-05-11 11:48 | DS ---
[facility] Detox Discharge Summary Admission Date: 05/07/18 Discharge Date: 05/11/18 - History Present History: Alcohol Dependence, Opioid Dependence Additional Comments: 37 years old female admitted on05/07/18 for alcohol and opiate withdrawal sx prefers to go home that mother can pick her up, tolerated well alet oriented x 3 no acute stress denies suicida denies homocidal no sefl destructive behavior, reported that feeling better today withdrawal sx are manageable and want to prepare for recovery stage at [facility] - Physical Exam Results Vital Signs: Vital Signs Temperature 97.9 F 05/11/18 06:00 Pulse Rate 65 05/11/18 06:00 Respiratory Rate 18 05/11/18 06:00 Blood Pressure 133/68 05/11/18 06:00 O2 Sat by Pulse Oximetry (%) Pertinent Admission Physical Exam Findings: alcohol and opiate withdrawal sx Vital Signs Temperature 97.9 F 05/11/18 06:00 Pulse Rate 65 05/11/18 06:00 Respiratory Rate 18 05/11/18 06:00 Blood Pressure 133/68 05/11/18 06:00 O2 Sat by Pulse Oximetry (%) Laboratory Last Values WBC 7.4 K/mm3 (4.0-10.0) 05/08/18 07:40 RBC 4.18 M/mm3 (3.60-5.2) 05/08/18 07:40 Hgb 11.9 GM/dL (10.7-15.3) 05/08/18 07:40 Hct 34.4 % (32.4-45.2) 05/08/18 07:40 MCV 82.2 fl (80-96) 05/08/18 07:40 MCH 28.5 pg (25.7-33.7) 05/08/18 07:40 MCHC 34.7 g/dl (32.0-36.0) 05/08/18 07:40 RDW 14.6 % (11.6-15.6) 05/08/18 07:40 Plt Count 274 K/MM3 (134-434) D 05/08/18 07:40 MPV 9.0 fl (7.5-11.1) 05/08/18 07:40 Sodium 141 mmol/L (136-145) 05/08/18 07:40 Potassium 4.1 mmol/L (3.5-5.1) 05/08/18 07:40 Chloride 106 mmol/L (98-107) 05/08/18 07:40 Carbon Dioxide 19 mmol/L (21-32) L 05/08/18 07:40 Anion Gap 15 MMOL/L (8-16) 05/08/18 07:40 BUN 20 mg/dL (7-18) H 05/08/18 07:40 Creatinine 0.8 mg/dL (0.55-1.3) 05/08/18 07:40 Creat Clearance w eGFR > 60 (>60) 05/08/18 07:40 Random Glucose 69 mg/dL (74-106) L 05/08/18 07:40 Calcium 8.7 mg/dL (8.5-10.1) 05/08/18 07:40 Total Bilirubin 0.5 mg/dL (0.2-1) 05/08/18 07:40 AST 21 U/L (15-37) 05/08/18 07:40 ALT 23 U/L (13-61) 05/08/18 07:40 Alkaline Phosphatase 95 U/L (45-117) 05/08/18 07:40 Total Protein 7.3 g/dl (6.4-8.2) 05/08/18 07:40 Albumin 3.8 g/dl (3.4-5.0) 05/08/18 07:40 Urine Color Yellow 05/08/18 07:40 Urine Appearance Cloudy 05/08/18 07:40 Urine pH 5.0 (5.0-8.0) 05/08/18 07:40 Ur Specific [place] 1.020 (1.010-1.035) 05/08/18 07:40 Urine Protein Negative (NEGATIVE) 05/08/18 07:40 Urine Glucose (UA) Negative (NEGATIVE) 05/08/18 07:40 Urine Ketones Negative (NEGATIVE) 05/08/18 07:40 Urine Blood Negative (NEGATIVE) 05/08/18 07:40 Urine Nitrite Negative (NEGATIVE) 05/08/18 07:40 Urine Bilirubin Negative (<2.0 mg/dL) 05/08/18 07:40 Urine Urobilinogen Negative mg/dL (0.2-1.0) 05/08/18 07:40 Ur Leukocyte Esterase 2+ (NEGATIVE) H 05/08/18 07:40 Urine WBC (Auto) 15 /hpf (3-5) 05/08/18 07:40 Urine RBC (Auto) 5 /hpf (0-3) 05/08/18 07:40 Ur Epithelial Cells Many /HPF (FEW) 05/08/18 07:40 RPR Titer Nonreactive (NONREACTIVE) 05/08/18 07:40 lab noted - Treatment Hospital Course: Detox Protocol Followed, Detoxed Safely, Responded well, Discharged Condition Good, Rehab Referral Accepted Patient has Accepted a Rehab Referral to: [facility] - Medication Discharge Medications: Ambulatory Orders NK [No Known Home Medication] 05/07/18 - Diagnosis (1) Alcohol dependence with uncomplicated withdrawal Status: Acute (2) Opioid dependence with withdrawal Status: Acute (3) Hypertension Status: Chronic Qualifiers: Hypertension type: essential hypertension Qualified Code(s): I10 - Essential (primary) hypertension (4) Nicotine dependence Status: Acute Qualifiers: Nicotine product type: cigarettes Substance use status: in withdrawal Qualified Code(s): F17.213 - Nicotine dependence, cigarettes, with withdrawal - AMA Did Patient Leave Against Medical Advice: No
[2018-05-12] MEDS ORDERED: METHADONE HCL 5 MG TABLET (FOR DETOX USE ONLY) PO SCH (06:00)
== END 2018-05-11 09:38 | disposition home or self-care (01) | DRG 773 ==
LOC: YASAS 16:42 → Y6N 22:13
PROC: HZ2ZZZZ Detoxification Services for Substance Abuse Treatment (ICD-10-PCS; principal; 2018-05-07)
DX: F11.23 Opioid dependence with withdrawal (principal); F10.230 Alcohol dependence with withdrawal, uncomplicated; F14.20 Cocaine dependence, uncomplicated; F17.213 Nicotine dependence, cigarettes, with withdrawal; F19.282 Other psychoactive substance dependence with psychoactive substance-induced sleep disorder; F41.9 Anxiety disorder, unspecified; F32.9 Major depressive disorder, single episode, unspecified; I10 Essential (primary) hypertension; Z59.0 Homelessness
CPT/HCPCS: 36415; 80053; 81003; 81015; 85027; 86593; J0475

== ENCOUNTER 2018-06-22 11:01 | Inpatient (IN) | payer OTHER ==
[2018-06-22 11:40] VITALS: BMI 34.3
--- NOTE | 2018-06-22 12:34 | HP ---
COWS - Scale Resting Pulse: 1= [place] 81-100 Sweatin=Flushed/Facial Moisture Restless Observation: 1= Difficult to Sit Still Pupil Size: 0= Normal to Room Light Bone or Joint Aches: 1= Mild Discomfort Runny Nose/ Eye Tearin= Nasal Congestion GI Upset > 30mins: 0= None Tremor Observation: 1= Tremor [place], Not Seen Yawning Observation: 1= 1-2x During Session Anxiety or Irritability: 2=Irritable/Anxious Goose Flesh Skin: 0=Smooth Skin COWS Score: 10 CIWA Score Nausea/Vomitin Muscle Tremors: 2 Anxiety: 3 Agitation: 3 Paroxysmal Sweats: 3 Orientation: 0-Oriented Tacttile Disturbances: 0-None Auditory Disturbances: 0-None Visual Disturbances: 0-None Headache: 0-None Present CIWA-Ar Total Score: 13 - Admission Criteria [facility] Guidelines: Admission for Medically Managed Detox: Requires at least one of the followin. CIWA greater than 12 2. Seizures within the past 24 hours 3. Delirium tremens within the past 24 hours 4. Hallucinations within the past 24 hours 5. Acute intervention needed for co occurring medical disorder 6. Acute intervention needed for co occurring psychiatric disorder 7. Severe withdrawal that cannot be handled at a lower level of care (continued vomiting, continued diarrhea, abnormal vital signs) requiring intravenous medication and/or fluids 8. Patient presents the following: CIWA greater than 12 Admission Criteria Met: Admission criteria met Admission [facility] Chief Complaint: "I am here to get clean" Allergies/Adverse Reactions: Allergies Allergy/AdvReac Type Severity Reaction Status Date / Time No Known Allergies Allergy Verified 06/22/18 11:55 History of Present Illness: 38 y/o female known to this program, last visit 04/2018 Denies substance related seizures or black out. Denies past nor current SI/HI Hx - HTN, resolved not on meds Exam Limitations: No Limitations - Ebola screening Have you traveled outside of the country in the last 21 days: No (N) Have you had contact with anyone from an Ebola affected area: No Have you been sick,other than usual withdrawal symptoms: Yes Do you have a fever: No - Review of Systems Constitutional: No Symptoms Reported EENT: reports: No Symptoms Reported Respiratory: reports: No Symptoms reported Cardiac: reports: No Symptoms Reported GI: reports: No Symptoms Reported : reports: No Symptoms Reported Musculoskeletal: reports: No Symptoms Reported Integumentary: reports: No Symptoms Reported Neuro: reports: No Symptoms reported Endocrine: reports: No Symptoms Reported Hematology: reports: No Symptoms Reported Psychiatric: reports: No Sypmtoms Reported, Mood/Affect Appropiate, Orientated x3, Anxious Other Systems: Reviewed and Negative Patient History - Patient Medical History Hx Anemia: No Hx Asthma: No Hx Chronic Obstructive Pulmonary Disease (COPD): No Hx Cancer: No Hx Cardiac Disorders: No Hx Congestive Heart Failure: No Hx Hypertension: Yes Hx Hypercholesterolemia: No Hx Pacemaker: No HX Cerebrovascular Accident: No Hx Seizures: No Hx Dementia: No Hx Diabetes: No Hx Gastrointestinal Disorders: No Hx Liver Disease: No Hx Genitourinary Disorders: No Hx Sexually Transmitted Disorders: Yes (chlamydia at 21y/o) Hx Renal Disease (ESRD): No Hx Thyroid Disease: No Hx Human Immunodeficiency Virus (HIV): No (Negative - last tested December 2017) Hx Hepatitis C: No Hx Depression: Yes (Not on meds) Hx Suicide Attempt: No (Denies suicidal ideation at this time) Hx Bipolar Disorder: Yes (Not on meds) Hx Schizophrenia: No - Patient Surgical History Past Surgical History: Yes Hx Neurologic Surgery: No Hx Cataract Extraction: No Hx Cardiac Surgery: No Hx Lung Surgery: No Hx Breast Surgery: No Hx Breast Biopsy: No Hx Abdominal Surgery: No Hx Appendectomy: No Hx Cholecystectomy: No Hx Genitourinary Surgery: No Hx Section: No Hx Orthopedic Surgery: No Hx Hysterectomy: No Other Surgical History: c/section x 2007, TONSILLECTOMY AT AGE 10 Anesthesia Reaction: No - PPD History Previous Implant?: Yes Documented Results: Negative w/proof Implanted On Prior [facility] Admission?: Yes Date: 04/01/18 Results: NEGATIVE PPD to be Administered?: No - Reproductive History Patient is a Female of Child Bearing Age (11 -55 yrs old): Yes Last Menstrual Period: 06/12/18 Patient : No - Smoking Cessation Smoking history: Never smoked Have you smoked in the past 12 months: No Hx Chewing Tobacco Use: No - Substance & Tx. History Hx Alcohol Use: Yes Hx Substance Use: Yes Substance Use Type: Alcohol, Cocaine, Heroin Hx Substance Use Treatment: Yes - Substances Abused Heroin Route: Inhalation Frequency: Daily Amount used: 10 BAGS Age of first use: 26 Date of Last Use: 06/22/18 Cocaine Route: Smoking Frequency: Daily Amount used: $80 Age of first use: 34 Date of Last Use: 06/22/18 Alcohol Route: Oral Frequency: Daily Amount used: 1/2 PINT OF VODKA, 5 (24 OUNCES CANS) BEER Age of first use: 20 Date of Last Use: 06/21/18 Family Disease History - Family Disease History Family Disease History: Other: Father (Alcohol), Mother (Acohol), Brother ( heroin) Admission Physical Exam [facility] - Vital Signs Vital Signs: Vital Signs - 24 hr 06/22/18 11:35 Temperature 98.4 F Pulse Rate 83 Respiratory 18 Rate Blood Pressure 141/83 - Physical General Appearance: Yes: Disheveled, Moderate Distress, Irritable, Anxious, Other HEENTM: Yes: Nasal Congestion Respiratory: Yes: Lungs Clear, No Respiratory Distress, No Accessory Muscle Use Neck: Yes: No masses,lesions,Nodules, Trachea in good position Breast: Yes: Breast Exam Deferred Cardiology: Yes: Regular Rate Abdominal: Yes: Non Tender Genitourinary: Yes: Within Normal Limits Back: Yes: Normal Inspection Musculoskeletal: Yes: full range of Motion, Gait Steady Extremities: Yes: Normal Capillary Refill, Normal Range of Motion Neurological: Yes: Fully Oriented, Alert, Motor Strength 5/5 Integumentary: Yes: Within Normal Limits, Warm Lymphatic: Yes: Within Normal Limits - Diagnostic (1) Alcohol dependence with uncomplicated withdrawal Current Visit: Yes Status: Acute (2) Opioid dependence with withdrawal Current Visit: Yes Status: Acute (3) Cocaine dependence, uncomplicated Current Visit: Yes Status: Chronic (4) Hypertension Current Visit: Yes Status: Chronic Qualifiers: Hypertension type: essential hypertension Qualified Code(s): I10 - Essential (primary) hypertension (5) Anxiety Current Visit: Yes Status: Chronic Cleared for Admission [facility] - Detox or Rehab [facility] Level of Care: Medically Managed Detox Regimen/Protocol: Methadone/Librium [facility] Breath Alcohol Content Breath Alcohol Content: 0 Urine Pregancy Test - Result Urine Test Results: Negative- NO Line Present Urine Drug Screen - Results Drug Screen Negative: No Urine Drug Screen Results: TIFFANY-Cocaine, OPI-Opiates, BZO-Benzodiazepines, MTD- Methadone, FEN-Fentanyl, BUP-Suboxone
[2018-06-22] MEDS ORDERED: LOPERAMIDE HCL 2 MG CAPSULE PO PRN (12:48)
[2018-06-22] MEDS ORDERED: MAG HYDROX/AL HYDROX/SIMETH 30 ML UNIT-DOSE CUP PO PRN (12:48)
[2018-06-22] MEDS ORDERED: P-EPHED 60MG/TRIPROLIDI 2.5MG TABLET PO PRN (12:48)
[2018-06-22] MEDS ORDERED: MENTHOL/PHENOL 1 EACH UD MM PRN (12:48)
[2018-06-22] MEDS ORDERED: IBUPROFEN 400 MG TABLET (FP) PO PRN (12:48)
[2018-06-22] MEDS ORDERED: MAGNESIUM HYDROX 2400MG/30ML ORAL SUSPENSION 30 ML CUP PO PRN (12:48)
[2018-06-22] MEDS ORDERED: ACETAMINOPHEN 325 MG TABLET (FP) PO PRN (12:48)
[2018-06-22] MEDS ORDERED: MAGNESIUM CITRATE 300 ML BOTTLE PO PRN (12:48)
[2018-06-22] MEDS ORDERED: guaiFENesin/D-METHORPHAN HB 10 ML UNIT-DOSE CUPS PO PRN (12:48)
[2018-06-22] MEDS ORDERED: METHADONE HCL 10 MG TABLET (FOR DETOX USE ONLY) PO ONE ×2 (12:48→23:00)
[2018-06-22] MEDS: chlordiazePOXIDE HCL 25 MG CAPSULE PO PRN (13:58)
[2018-06-22] MEDS: hydrOXYzine PAMOATE 50 MG CAPSULE (FP) PO PRN (17:51)
[2018-06-22] MEDS: chlordiazePOXIDE HCL 25 MG CAPSULE PO SCH ×2 (17:51→23:52)
[2018-06-22] MEDS: THIAMINE HCL 100 MG TABLET (FP) PO SCH (23:52)
[2018-06-23] MEDS: chlordiazePOXIDE HCL 25 MG CAPSULE PO SCH ×4 (06:46→22:22)
[2018-06-23] MEDS ORDERED: METHADONE HCL 10 MG TABLET (FOR DETOX USE ONLY) PO SCH (10:00)
[2018-06-23] MEDS: PRENATAL VITAMINS W/ FOLIC ACID TABLET (FP) PO SCH (10:30)
[2018-06-23 10:32] LABS: ALBUMIN 3.3 g/dl (3.4-5.0); ALK PHOS 92 U/L (45-117); ANION GAP 7 MMOL/L (8-16); BILIRUBIN,TOTAL 0.4 mg/dL (0.2-1); BLOOD UREA NITROGEN 23 mg/dL (7-18); CALCIUM 8.5 mg/dL (8.5-10.1); CHLORIDE 104 mmol/L (98-107); CO2 28 mmol/L (21-32); CREATININE 0.7 mg/dL (0.55-1.3); GLUCOSE,RANDOM 87 mg/dL (74-106); POTASSIUM 4.3 mmol/L (3.5-5.1); SGOT/AST 12 U/L (15-37); SGPT/ALT 22 U/L (13-61); SODIUM 139 mmol/L (136-145); TOT PROT 6.3 g/dl (6.4-8.2)
[2018-06-23 10:33] LABS: HEMATOCRIT 34.6 % (32.4-45.2); HEMOGLOBIN 11.7 GM/dL (10.7-15.3); MCH 28.2 pg (25.7-33.7); MEAN CELL VOLUME 82.9 fl (80-96); MEAN PLT VOLUME 8.2 fl (7.5-11.1); PLATELET COUNT 306 K/MM3 (134-434); RBC 4.17 M/mm3 (3.60-5.2); RDW 14.8 % (11.6-15.6); WHITE BLOOD COUNT 5.1 K/mm3 (4.0-10.0)
--- NOTE | 2018-06-23 10:57 | PN ---
[facility] CIWA - CIWA Score Nausea/Vomitin-No Nausea/No Vomiting Muscle Tremors: 3 Anxiety: 3 Agitation: 3 Paroxysmal Sweats: 3 Orientation: 0-Oriented Tacttile Disturbances: 0-None Auditory Disturbances: 0-None Visual Disturbances: 0-None Headache: 0-None Present CIWA-Ar Total Score: 12 [facility] COWS - Scale Resting Pulse: 0= [place] 80 or Below Sweatin=Flushed/Facial Moisture Restless Observation: 1= Difficult to Sit Still Pupil Size: 0= Normal to Room Light Bone or Joint Aches: 1= Mild Discomfort Runny Nose/ Eye Tearin= Nasal Congestion GI Upset > 30mins: 0= None Tremor Observation of Outstretched Hands: 1= Tremor [place], Not Seen Yawning Observation: 2= >3x During Session Anxiety or Irritability: 1=Feels Anxious/Irritable Goose Flesh Skin: 3=[place] COWS Score: 12 [facility] Progress Note (SOAP) Subjective: irritable agitation anxiety sweats shakes interrupted sleep Objective: 06/23/18 10:53 Vital Signs Temperature 97.1 F L 06/23/18 09:27 Pulse Rate 72 06/23/18 09:27 Respiratory Rate 16 06/23/18 09:27 Blood Pressure 122/79 06/23/18 09:27 O2 Sat by Pulse Oximetry (%) Laboratory Tests 06/23/18 06/23/18 08:15 08:15 WBC 5.1 RBC 4.17 Hgb 11.7 Hct 34.6 MCV 82.9 MCH 28.2 MCHC 34.0 RDW 14.8 Plt Count 306 MPV 8.2 Sodium 139 Potassium 4.3 Chloride 104 Carbon Dioxide 28 Anion Gap 7 L BUN 23 H Creatinine 0.7 Creat Clearance w eGFR > 60 Random Glucose 87 Calcium 8.5 Total Bilirubin 0.4 AST 12 L ALT 22 Alkaline Phosphatase 92 Total Protein 6.3 L Albumin 3.3 L aaox3 ambulating no acute distress Assessment: 06/23/18 10:53 withdrawal sx Plan: continue detox increase fluids
[2018-06-23] MEDS: chlordiazePOXIDE HCL 25 MG CAPSULE PO PRN (13:11)
[2018-06-23] MEDS: THIAMINE HCL 100 MG TABLET (FP) PO SCH (22:22)
[2018-06-23] MEDS: MELATONIN 5 MG TABLETS PO PRN (22:22)
[2018-06-23] MEDS: hydrOXYzine PAMOATE 50 MG CAPSULE (FP) PO PRN (22:24)
[2018-06-24] MEDS: chlordiazePOXIDE HCL 25 MG CAPSULE PO SCH ×2 (05:35→10:50)
[2018-06-24] MEDS: METHADONE HCL 5 MG TABLET (FOR DETOX USE ONLY) PO SCH (10:50)
[2018-06-24] MEDS: PRENATAL VITAMINS W/ FOLIC ACID TABLET (FP) PO SCH (10:50)
--- NOTE | 2018-06-24 12:50 | PN ---
[facility] CIWA - CIWA Score Nausea/Vomitin-No Nausea/No Vomiting Muscle Tremors: 3 Anxiety: 3 Agitation: 3 Paroxysmal Sweats: 2 Orientation: 0-Oriented Tacttile Disturbances: 0-None Auditory Disturbances: 0-None Visual Disturbances: 0-None Headache: 0-None Present CIWA-Ar Total Score: 11 [facility] COWS - Scale Resting Pulse: 0= [place] 80 or Below Sweatin=Flushed/Facial Moisture Restless Observation: 1= Difficult to Sit Still Pupil Size: 0= Normal to Room Light Bone or Joint Aches: 1= Mild Discomfort Runny Nose/ Eye Tearin= Runny Nose/Eyes GI Upset > 30mins: 0= None Tremor Observation of Outstretched Hands: 2= Slight Tremor Visible Yawning Observation: 2= >3x During Session Anxiety or Irritability: 2=Irritable/Anxious Goose Flesh Skin: 0=Smooth Skin COWS Score: 12 S Progress Note (SOAP) Subjective: sweat shakes interrupted sleep body aches tired Objective: 06/24/18 12:49 Vital Signs Temperature 97.9 F 06/24/18 09:26 Pulse Rate 78 06/24/18 09:26 Respiratory Rate 18 06/24/18 09:26 Blood Pressure 141/84 06/24/18 09:26 O2 Sat by Pulse Oximetry (%) Laboratory Tests 06/23/18 06/23/18 06/23/18 08:15 08:15 08:15 WBC 5.1 RBC 4.17 Hgb 11.7 Hct 34.6 MCV 82.9 MCH 28.2 MCHC 34.0 RDW 14.8 Plt Count 306 MPV 8.2 Sodium 139 Potassium 4.3 Chloride 104 Carbon Dioxide 28 Anion Gap 7 L BUN 23 H Creatinine 0.7 Creat Clearance w eGFR > 60 Random Glucose 87 Calcium 8.5 Total Bilirubin 0.4 AST 12 L ALT 22 Alkaline Phosphatase 92 Total Protein 6.3 L Albumin 3.3 L RPR Titer HIV 1&2 Antibody Screen Negative HIV P24 Antigen Negative 06/23/18 08:15 WBC RBC Hgb Hct MCV MCH MCHC RDW Plt Count MPV Sodium Potassium Chloride Carbon Dioxide Anion Gap BUN Creatinine Creat Clearance w eGFR Random Glucose Calcium Total Bilirubin AST ALT Alkaline Phosphatase Total Protein Albumin RPR Titer Nonreactive HIV 1&2 Antibody Screen HIV P24 Antigen aaox3 ambulating no acute distress Assessment: 06/24/18 12:50 withdrawal sx Plan: continue detox increase fluids
[2018-06-24] MEDS: chlordiazePOXIDE HCL 25 MG CAPSULE PO PRN (13:00)
[2018-06-24] MEDS: chlordiazePOXIDE 5 MG CAPSULE PO SCH ×2 (17:32→22:08)
[2018-06-24] MEDS: THIAMINE HCL 100 MG TABLET (FP) PO SCH (22:08)
[2018-06-24] MEDS: hydrOXYzine PAMOATE 50 MG CAPSULE (FP) PO PRN (22:08)
[2018-06-24] MEDS: MELATONIN 5 MG TABLETS PO PRN (22:09)
[2018-06-25] MEDS: chlordiazePOXIDE 5 MG CAPSULE PO SCH ×2 (06:13→10:20)
[2018-06-25] MEDS: chlordiazePOXIDE HCL 25 MG CAPSULE PO PRN (08:51)
[2018-06-25] MEDS: METHADONE HCL 5 MG TABLET (FOR DETOX USE ONLY) PO SCH (10:20)
[2018-06-25] MEDS: PRENATAL VITAMINS W/ FOLIC ACID TABLET (FP) PO SCH (10:20)
[2018-06-25 13:58] VITALS: BP 147/85; PULSE 92; TEMP 99.9
--- NOTE | 2018-06-25 14:05 | PN ---
[facility] Progress Note (SOAP) Subjective: sweats anxiety irritable Objective: 06/25/18 14:04 Vital Signs Temperature 99.9 F H 06/25/18 13:58 Pulse Rate 92 H 06/25/18 13:58 Respiratory Rate 16 06/25/18 13:58 Blood Pressure 147/85 06/25/18 13:58 O2 Sat by Pulse Oximetry (%) aaox3 ambulating no acute distress Assessment: 06/25/18 14:04 mild withdrawal sx Plan: continue detox increase fluids
[2018-06-25] MEDS ORDERED: chlordiazePOXIDE HCL 10 MG CAPSULE PO SCH (17:00)
--- NOTE | 2018-06-25 17:17 | DS ---
[facility] Detox Discharge Summary Admission Date: 06/22/18 Discharge Date: 06/25/18 - History Present History: Alcohol Dependence, Opioid Dependence Additional Comments: NOTIFIED BY RN PATIENT REQUESTED TO SIGN OUT AMA BECAUSE THERE ARE NO REHAB BEDS AVAILABLE. PATIENT SCHEDULED D/C TOMORROW. PATIENT ENCOURAGED TO STAY IN DETOX UNTIL TOMORROW TO SEE REHAB BED STATUS BUT REFUSED. PATIENT STATED " I JUST WANT TO GO HOME AND CALL PLACES MYSELF". PATIENT MEDICALLY CLINICALLY STABLE AND DENIES SI/HI. PATIENT EDUCATED ON RISK FACTORS REGARDING SIGNING OUT AMA SUCH RELAPSE BUT REFUSED TO COMPLETE DETOX. PATIENT ENCOURAGED TO ATTEND GROUP MEETINGS AT [facility] TO PREVENT RELAPSE AND TO FOLLOW UP WITH PCP WITHIN ONE WEEK OF D/C. PATIENT ALSO RECOMMENDED TO SEEK MEDICAL ATTENTION IF WITHDRAWAL SX OCCUR. NARCAN KIT OFFERED BUT PATIENT REFUSED TO HAVE KIT SENT TO PHARMACY STATING " I DON'T NEED IT". NARCAN KIT PRESCRIPTION ENCOURAGED AND REFUSAL RISK FACTORS REVIEWED WITH PATIENT BUT PATIENT CONTINUED TO REFUSE KIT. - Physical Exam Results Vital Signs: Vital Signs Temperature 99.9 F H 06/25/18 13:58 Pulse Rate 92 H 06/25/18 13:58 Respiratory Rate 16 06/25/18 13:58 Blood Pressure 147/85 06/25/18 13:58 O2 Sat by Pulse Oximetry (%) - Medication Discharge Medications: Ambulatory Orders NK [No Known Home Medication] 05/07/18 - AMA Did Patient Leave Against Medical Advice: Yes
[2018-06-26] MEDS ORDERED: METHADONE HCL 10 MG TABLET (FOR DETOX USE ONLY) PO SCH (10:00)
[2018-06-27] MEDS ORDERED: METHADONE HCL 5 MG TABLET (FOR DETOX USE ONLY) PO SCH (06:00)
== END 2018-06-25 17:30 | disposition home or self-care (01) | DRG 773 ==
LOC: YASAS 11:01 → Y6N 12:38
PROC: HZ2ZZZZ Detoxification Services for Substance Abuse Treatment (ICD-10-PCS; principal; 2018-06-22)
DX: F11.23 Opioid dependence with withdrawal (principal); F10.230 Alcohol dependence with withdrawal, uncomplicated; F14.20 Cocaine dependence, uncomplicated; F31.9 Bipolar disorder, unspecified; Z86.79 Personal history of other diseases of the circulatory system; Z59.0 Homelessness
CPT/HCPCS: 36415; 80053; 85027; 86593; 87389

== ENCOUNTER 2018-08-04 09:26 | Inpatient (IN) | payer OTHER ==
[2018-08-04 09:49] VITALS: BMI 36.6
--- NOTE | 2018-08-04 10:36 | HP ---
CIWA Score Nausea/Vomitin Muscle Tremors: 2 Anxiety: 2 Agitation: 2 Paroxysmal Sweats: 1-Minimal Palms Moist Orientation: 0-Oriented Tacttile Disturbances: 1-Very Mild Itch/Numbness Auditory Disturbances: 1-Very Mild Visual Disturbances: 0-None Headache: 2-Mild CIWA-Ar Total Score: 13 - Admission Criteria OASAS Guidelines: Admission for Medically Managed Detox: Requires at least one of the followin. CIWA greater than 12 2. Seizures within the past 24 hours 3. Delirium tremens within the past 24 hours 4. Hallucinations within the past 24 hours 5. Acute intervention needed for co occurring medical disorder 6. Acute intervention needed for co occurring psychiatric disorder 7. Severe withdrawal that cannot be handled at a lower level of care (continued vomiting, continued diarrhea, abnormal vital signs) requiring intravenous medication and/or fluids 8. Patient presents the following: CIWA greater than 12 Admission Criteria Met: Admission criteria met Admission ROS [facility] - HPI Chief Complaint: i need help to stop drinking alcohol and cocaine Allergies/Adverse Reactions: Allergies Allergy/AdvReac Type Severity Reaction Status Date / Time No Known Allergies Allergy Verified 06/22/18 11:55 History of Present Illness: this 38 years old female with alcohol and cocaine dependence,seeking detox, withdrawal symptom,mmtp 40 mgs/day, seen in hospital for [facility] earlier with sprain o right ankle,on crutches syncope alcohol related no smoking multiple admissions in detox but keep relapsing longest period of sobriety 18 months ambulation with crutches Exam Limitations: No Limitations - Ebola screening Have you traveled outside of the country in the last 21 days: No Have you had contact with anyone from an Ebola affected area: No Have you been sick,other than usual withdrawal symptoms: No - Review of Systems Constitutional: Loss of Appetite, Malaise, Night Sweats, Changes in sleep, Weakness EENT: reports: Nose Congestion Respiratory: reports: No Symptoms reported Cardiac: reports: No Symptoms Reported GI: reports: Nausea, Poor Appetite, Abdominal cramping : reports: No Symptoms Reported Musculoskeletal: reports: Back Pain, Joint Pain, Muscle Pain Integumentary: reports: Dryness Neuro: reports: Headache, Tremors Endocrine: reports: No Symptoms Reported Hematology: reports: No Symptoms Reported Psychiatric: reports: No Sypmtoms Reported, Judgement Intact, Mood/Affect Appropiate, Orientated x3, Anxious, Depressed, other Other Systems: Reviewed and Negative Patient History - Patient Medical History Hx Anemia: No Hx Asthma: No Hx Chronic Obstructive Pulmonary Disease (COPD): No Hx Cancer: No Hx Cardiac Disorders: No Hx Congestive Heart Failure: No Hx Hypertension: Yes (no med) Hx Hypercholesterolemia: No Hx Pacemaker: No HX Cerebrovascular Accident: No Hx Seizures: No Hx Dementia: No Hx Diabetes: No Hx Gastrointestinal Disorders: No Hx Liver Disease: No Hx Genitourinary Disorders: No Hx Sexually Transmitted Disorders: Yes (chlamydia at 21y/o) Hx Renal Disease (ESRD): No Hx Thyroid Disease: No Hx Human Immunodeficiency Virus (HIV): No (Negative - last tested December 2017) Hx Hepatitis C: No Hx Depression: Yes (Not on meds) Hx Suicide Attempt: No (Denies suicidal ideation at this time) Hx Bipolar Disorder: Yes (Not on meds) Hx Schizophrenia: No Other Medical History: no suicidal,no homicidal - Patient Surgical History Past Surgical History: Yes Hx Neurologic Surgery: No Hx Cataract Extraction: No Hx Cardiac Surgery: No Hx Lung Surgery: No Hx Breast Surgery: No Hx Breast Biopsy: No Hx Abdominal Surgery: No Hx Appendectomy: No Hx Cholecystectomy: No Hx Genitourinary Surgery: No Hx Section: No Hx Orthopedic Surgery: No Hx Hysterectomy: No Other Surgical History: c/section x 2007, TONSILLECTOMY AT AGE 10 Anesthesia Reaction: No - PPD History Previous Implant?: Yes Documented Results: Negative w/proof Implanted On Prior [facility] Admission?: Yes Date: 04/01/18 Results: NEGATIVE PPD to be Administered?: No - Reproductive History Patient is a Female of Child Bearing Age (11 -55 yrs old): Yes Last Menstrual Period: 07/13/18 Patient : No - Smoking Cessation Smoking history: Never smoked Have you smoked in the past 12 months: No Hx Chewing Tobacco Use: No - Substance & Tx. History Hx Alcohol Use: Yes Hx Substance Use: Yes Substance Use Type: Alcohol, Cocaine Hx Substance Use Treatment: Yes ([facility] 06/22/18 to 06/25/18) Family Disease History - Family Disease History Family Disease History: Other: Father (Alcohol), Mother (Acohol), Brother ( heroin) Admission Physical Exam BHS - Vital Signs Vital Signs: Vital Signs - 24 hr 08/04/18 09:45 Temperature 98.9 F Pulse Rate 84 Respiratory 18 Rate Blood Pressure 147/76 - Physical General Appearance: Yes: Moderate Distress, Tremorous, Irritable, Sweating, Anxious HEENTM: Yes: Normal ENT Inspection, FADUMO, Pharynx Normal Respiratory: Yes: Lungs Clear, Normal Breath Sounds, No Respiratory Distress Neck: Yes: Within Normal Limits, Supple, Trachea in good position Breast: Yes: Breast Exam Deferred Cardiology: Yes: Within Normal Limits, Regular Rhythm, Regular Rate, S1, S2 Abdominal: Yes: Within Normal Limits, Normal Bowel Sounds, Non Tender, Flat, Soft Genitourinary: Yes: Within Normal Limits Back: Yes: Muscle Spasm Musculoskeletal: Yes: full range of Motion, Back pain, Muscle Pain Extremities: Yes: Normal Range of Motion, Tremors Neurological: Yes: 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-XII NML intact, Fully Oriented, Alert, Motor Strength 5/5 Integumentary: Yes: Dry Lymphatic: Yes: Within Normal Limits - Diagnostic (1) Alcohol dependence with uncomplicated withdrawal Current Visit: No Status: Acute (2) Cocaine dependence, uncomplicated Current Visit: No Status: Chronic (3) Hx of essential hypertension Current Visit: No Status: Suspected (4) Sprain of right ankle Current Visit: Yes Status: Acute (5) Crutches as ambulation aid Current Visit: Yes Status: Acute Cleared for Admission [facility] - Detox or Rehab [facility] Level of Care: Medically Managed Detox Regimen/Protocol: Librium [facility] Breath Alcohol Content Breath Alcohol Content: 0 Urine Pregancy Test - Result Urine Test Results: Negative- NO Line Present Urine Drug Screen - Results Drug Screen Negative: Yes Urine Drug Screen Results: TIFFANY-Cocaine, BZO-Benzodiazepines, MTD-Methadone
[2018-08-04] MEDS ORDERED: MENTHOL/PHENOL 1 EACH UD MM PRN ×2 (10:44→12:06)
[2018-08-04] MEDS ORDERED: LOPERAMIDE HCL 2 MG CAPSULE PO PRN ×2 (10:44→12:06)
[2018-08-04] MEDS ORDERED: ACETAMINOPHEN 325 MG TABLET (FP) PO PRN (10:44)
[2018-08-04] MEDS ORDERED: guaiFENesin/D-METHORPHAN HB 10 ML UNIT-DOSE CUPS PO PRN ×2 (10:44→12:06)
[2018-08-04] MEDS ORDERED: hydrOXYzine PAMOATE 50 MG CAPSULE (FP) PO PRN (10:44)
[2018-08-04] MEDS ORDERED: MAG HYDROX/AL HYDROX/SIMETH 30 ML UNIT-DOSE CUP PO PRN ×2 (10:44→12:06)
[2018-08-04] MEDS ORDERED: IBUPROFEN 400 MG TABLET (FP) PO PRN (10:44)
[2018-08-04] MEDS ORDERED: MAGNESIUM HYDROX 2400MG/30ML ORAL SUSPENSION 30 ML CUP PO PRN ×2 (10:44→12:06)
[2018-08-04] MEDS ORDERED: chlordiazePOXIDE HCL 25 MG CAPSULE PO PRN (10:44)
[2018-08-04] MEDS ORDERED: P-EPHED 60MG/TRIPROLIDI 2.5MG TABLET PO PRN ×2 (10:44→12:06)
[2018-08-04] MEDS ORDERED: MAGNESIUM CITRATE 300 ML BOTTLE PO PRN ×2 (10:44→12:06)
[2018-08-04] MEDS ORDERED: chlordiazePOXIDE HCL 25 MG CAPSULE PO SCH (11:00)
--- NOTE | 2018-08-04 12:03 | PN ---
[facility] Progress Note Note: patient just completed detox from 07/31/18 to 08/03/18 at [facility],patient would like to go to rehab
--- NOTE | 2018-08-04 12:18 | HP ---
CIWA Score - Admission Criteria OASAS Guidelines: Admission for Medically Managed Detox: Requires at least one of the followin. CIWA greater than 12 2. Seizures within the past 24 hours 3. Delirium tremens within the past 24 hours 4. Hallucinations within the past 24 hours 5. Acute intervention needed for co occurring medical disorder 6. Acute intervention needed for co occurring psychiatric disorder 7. Severe withdrawal that cannot be handled at a lower level of care (continued vomiting, continued diarrhea, abnormal vital signs) requiring intravenous medication and/or fluids 8. Admission ROS S - HPI Chief Complaint: i need help to stop drinking alcohol and cocaine Allergies/Adverse Reactions: Allergies Allergy/AdvReac Type Severity Reaction Status Date / Time No Known Allergies Allergy Verified 08/04/18 10:33 History of Present Illness: this 38 years old female with alcohol and cocaine dependence,seeking help to stop using alcohol and cocaine,seeking some help,seen in [facility] last night for sprain of ankle earlier this morning has x ray of right ankle done which is negative ambulation with crutches anxiety,depression,no med last detox [facility] 07/31/18 to 08/03/18 [facility] Exam Limitations: No Limitations - Ebola screening Have you traveled outside of the country in the last 21 days: No Have you had contact with anyone from an Ebola affected area: No Have you been sick,other than usual withdrawal symptoms: No - Review of Systems Constitutional: No Symptoms Reported EENT: reports: No Symptoms Reported Respiratory: reports: No Symptoms reported Cardiac: reports: No Symptoms Reported GI: reports: No Symptoms Reported : reports: No Symptoms Reported Musculoskeletal: reports: No Symptoms Reported, Other (swelling of right tiana , on crutches) Integumentary: reports: No Symptoms Reported Neuro: reports: No Symptoms reported Endocrine: reports: No Symptoms Reported Hematology: reports: No Symptoms Reported Psychiatric: reports: No Sypmtoms Reported, Judgement Intact, Mood/Affect Appropiate, Orientated x3, Agitated, Depressed Patient History - Patient Medical History Hx Anemia: No Hx Asthma: No Hx Chronic Obstructive Pulmonary Disease (COPD): No Hx Cancer: No Hx Cardiac Disorders: Yes (Hx of heart murmur.) Hx Congestive Heart Failure: No Hx Hypertension: Yes (Pt is not currently on meds.) Hx Hypercholesterolemia: No Hx Pacemaker: No HX Cerebrovascular Accident: No Hx Seizures: No Hx Dementia: No Hx Diabetes: No Hx Gastrointestinal Disorders: No Hx Liver Disease: No Hx Genitourinary Disorders: No Hx Sexually Transmitted Disorders: No Hx Renal Disease (ESRD): No Hx Thyroid Disease: No Hx Human Immunodeficiency Virus (HIV): No (Negative - last tested December 2017) Hx Hepatitis C: No Hx Depression: Yes Hx Suicide Attempt: No Hx Bipolar Disorder: Yes (Not on meds) Hx Schizophrenia: No Other Medical History: no suicidal,no homicidal - Patient Surgical History Past Surgical History: Yes Hx Neurologic Surgery: No Hx Cataract Extraction: No Hx Cardiac Surgery: No Hx Lung Surgery: No Hx Breast Surgery: No Hx Breast Biopsy: No Hx Abdominal Surgery: No Hx Appendectomy: No Hx Cholecystectomy: No Hx Genitourinary Surgery: No Hx Section: No Hx Orthopedic Surgery: No Hx Hysterectomy: No Other Surgical History: c/section x 2007, TONSILLECTOMY AT AGE 10 Anesthesia Reaction: No - PPD History Previous Implant?: Yes Documented Results: Negative w/proof Implanted On Prior [facility] Admission?: Yes Date: 04/01/18 Results: NEGATIVE - Reproductive History Last Menstrual Period: 07/13/18 Patient : No - Smoking Cessation Smoking history: Never smoked Have you smoked in the past 12 months: No Hx Chewing Tobacco Use: No - Substances Abused Alcohol Route: Oral Frequency: Daily Amount used: 1 pint liquor/ 3-4 24 oz four locos Age of first use: 17 Date of Last Use: 08/04/18 Crack Route: Smoking Frequency: Daily Amount used: $50 Age of first use: 31 Date of Last Use: 08/04/18 Family Disease History - Family Disease History Family Disease History: Other: Father (Alcohol), Mother (Acohol), Brother ( heroin) Admission Physical Exam [facility] - Vital Signs Vital Signs: Vital Signs - 24 hr 08/04/18 09:45 Temperature 98.9 F Pulse Rate 84 Respiratory 18 Rate Blood Pressure 147/76 - Physical General Appearance: Yes: Within Normal Limits HEENTM: Yes: Normal ENT Inspection, FADUMO Respiratory: Yes: Lungs Clear, Normal Breath Sounds, No Respiratory Distress Neck: Yes: Within Normal Limits, Supple, Trachea in good position Breast: Yes: Breast Exam Deferred Cardiology: Yes: Within Normal Limits, Regular Rhythm, Regular Rate, S1, S2 Abdominal: Yes: Within Normal Limits, Normal Bowel Sounds, Non Tender, Soft Genitourinary: Yes: Within Normal Limits Back: Yes: Within Normal Limits Musculoskeletal: Yes: Within Normal Limits Extremities: Yes: Within Normal Limits Neurological: Yes: waterproof material folder II-XII NML intact, Fully Oriented, Alert, Motor Strength 5/5 Integumentary: Yes: Within Normal Limits Lymphatic: Yes: Within Normal Limits - Diagnostic (1) Alcohol dependence Current Visit: Yes Status: Acute (2) Hx of essential hypertension Current Visit: No Status: Suspected (3) Sprain of right ankle Current Visit: Yes Status: Acute (4) Crutches as ambulation aid Current Visit: Yes Status: Acute (5) Cocaine dependence Current Visit: Yes Status: Acute (6) Sprain of right ankle Current Visit: Yes Status: Acute (7) Crutches as ambulation aid Current Visit: Yes Status: Acute (8) Methadone maintenance therapy patient Current Visit: Yes Status: Acute Cleared for Admission [facility] - Detox or Rehab Clae[facility] for Rehab Admission: Yes [facility] Breath Alcohol Content Breath Alcohol Content: 0 Urine Pregancy Test - Result Urine Test Results: Negative- NO Line Present Urine Drug Screen - Results Drug Screen Negative: Yes Urine Drug Screen Results: TIFFANY-Cocaine, BZO-Benzodiazepines, MTD-Methadone Inpatient Rehab Admission - Rehab Decision to Admit Inpatient rehab admission?: Yes - Initial Determination Are CD services needed?: Yes Free of communicable disease: Yes Not in need of hospitalization: Yes - Rehab Admission Criteria Previous failed treatment: Yes Poor recovery environment: Yes Comorbidities: Yes Lacks judgement: No Patient is meeting Inpatient Rehab admission criteria:: Yes
[2018-08-04 14:57] LABS: HEMOGLOBIN 11.5 GM/dL (10.7-15.3); MCH 28.1 pg (25.7-33.7); MEAN CELL VOLUME 82.5 fl (80-96); MEAN PLT VOLUME 8.3 fl (7.5-11.1); PLATELET COUNT 296 K/MM3 (134-434); RBC 4.11 M/mm3 (3.60-5.2); RDW 14.8 % (11.6-15.6); WHITE BLOOD COUNT 10.8 K/mm3 (4.0-10.0)
[2018-08-04 15:36] LABS: ALK PHOS 89 U/L (45-117); ANION GAP 8 MMOL/L (8-16); BILIRUBIN,TOTAL 1.1 mg/dL (0.2-1); BLOOD UREA NITROGEN 11 mg/dL (7-18); CALCIUM 8.7 mg/dL (8.5-10.1); CHLORIDE 103 mmol/L (98-107); CO2 25 mmol/L (21-32); CREATININE 0.8 mg/dL (0.55-1.3); GLUCOSE,RANDOM 100 mg/dL (74-106); POTASSIUM 4.3 mmol/L (3.5-5.1); SGOT/AST 17 U/L (15-37); SGPT/ALT 25 U/L (13-61); SODIUM 136 mmol/L (136-145); TOT PROT 7.6 g/dl (6.4-8.2)
[2018-08-04] MEDS: IBUPROFEN 400 MG TABLET (FP) PO PRN (17:35)
[2018-08-04] MEDS: hydrOXYzine PAMOATE 50 MG CAPSULE (FP) PO PRN (21:37)
[2018-08-04] MEDS: THIAMINE HCL 100 MG TABLET (FP) PO SCH (21:37)
[2018-08-04] MEDS: MELATONIN 5 MG TABLETS PO PRN (21:37)
[2018-08-04] MEDS ORDERED: MELATONIN 5 MG TABLETS PO PRN (22:00)
[2018-08-04] MEDS ORDERED: THIAMINE HCL 100 MG TABLET (FP) PO SCH (22:00)
[2018-08-05] MEDS: METHADONE HCL 40 MG DISPERSABLE TABLET PO SCH (06:18)
[2018-08-05] MEDS: IBUPROFEN 400 MG TABLET (FP) PO PRN ×2 (06:20→17:10)
[2018-08-05] MEDS: PRENATAL VITAMINS W/ FOLIC ACID TABLET (FP) PO SCH (09:49)
[2018-08-05] MEDS: ACETAMINOPHEN 325 MG TABLET (FP) PO PRN (09:51)
[2018-08-05] MEDS: NICOTINE 21 MG/24 HOURS TOPICAL PATCH TD SCH (09:53)
[2018-08-05] MEDS ORDERED: PRENATAL VITAMINS W/ FOLIC ACID TABLET (FP) PO SCH (10:00)
[2018-08-05] MEDS ORDERED: chlordiazePOXIDE HCL 25 MG CAPSULE PO SCH (11:00)
[2018-08-05 12:50] LABS: URINE APPEARANCE SLCLOUDY; URINE BILIRUBIN NEGATIVE (<2.0 mg/dL); URINE COLOR LTYELLOW; URINE GLUCOSE (UA) NEGATIVE (NEGATIVE); URINE KETONE NEGATIVE (NEGATIVE); URINE LEUK ESTERASE NEGATIVE (NEGATIVE); URINE NITRITE NEGATIVE (NEGATIVE); URINE PROTEIN NEGATIVE (NEGATIVE); URINE UROBILINOGEN NEGATIVE mg/dL (0.2-1.0)
[2018-08-05] MEDS: THIAMINE HCL 100 MG TABLET (FP) PO SCH (21:27)
[2018-08-05] MEDS: MELATONIN 5 MG TABLETS PO PRN (21:27)
[2018-08-05] MEDS: hydrOXYzine PAMOATE 50 MG CAPSULE (FP) PO PRN (21:28)
[2018-08-06] MEDS: METHADONE HCL 40 MG DISPERSABLE TABLET PO SCH (06:10)
[2018-08-06] MEDS: IBUPROFEN 400 MG TABLET (FP) PO PRN ×2 (06:12→17:54)
[2018-08-06] MEDS: NICOTINE 21 MG/24 HOURS TOPICAL PATCH TD SCH (10:40)
[2018-08-06] MEDS: PRENATAL VITAMINS W/ FOLIC ACID TABLET (FP) PO SCH (10:40)
[2018-08-06] MEDS: ACETAMINOPHEN 325 MG TABLET (FP) PO PRN ×2 (10:42→21:27)
[2018-08-06] MEDS ORDERED: chlordiazePOXIDE 5 MG CAPSULE PO SCH (11:00)
[2018-08-06] MEDS: THIAMINE HCL 100 MG TABLET (FP) PO SCH (21:27)
[2018-08-06] MEDS: MELATONIN 5 MG TABLETS PO PRN (21:27)
[2018-08-06] MEDS: hydrOXYzine PAMOATE 50 MG CAPSULE (FP) PO PRN (21:27)
[2018-08-07] MEDS: METHADONE HCL 40 MG DISPERSABLE TABLET PO SCH (06:19)
[2018-08-07] MEDS: IBUPROFEN 400 MG TABLET (FP) PO PRN (06:21)
[2018-08-07] MEDS: NICOTINE 21 MG/24 HOURS TOPICAL PATCH TD SCH (10:13)
[2018-08-07] MEDS: PRENATAL VITAMINS W/ FOLIC ACID TABLET (FP) PO SCH (10:13)
[2018-08-07] MEDS: ACETAMINOPHEN 325 MG TABLET (FP) PO PRN (10:13)
[2018-08-07] MEDS ORDERED: chlordiazePOXIDE HCL 10 MG CAPSULE PO SCH (11:00)
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
[2018-08-07] MEDS: GABAPENTIN 300 MG CAPSULE (FP) PO SCH ×2 (14:45→21:31)
[2018-08-07] MEDS: THIAMINE HCL 100 MG TABLET (FP) PO SCH (21:30)
[2018-08-07] MEDS: MELATONIN 5 MG TABLETS PO PRN (21:31)
[2018-08-07] MEDS: hydrOXYzine PAMOATE 50 MG CAPSULE (FP) PO PRN (21:31)
[2018-08-08] MEDS: METHADONE HCL 40 MG DISPERSABLE TABLET PO SCH (06:11)
[2018-08-08] MEDS: GABAPENTIN 300 MG CAPSULE (FP) PO SCH ×3 (06:11→21:25)
[2018-08-08] MEDS: IBUPROFEN 400 MG TABLET (FP) PO PRN (09:56)
[2018-08-08] MEDS: hydrOXYzine PAMOATE 50 MG CAPSULE (FP) PO PRN ×2 (09:56→21:25)
[2018-08-08] MEDS: PRENATAL VITAMINS W/ FOLIC ACID TABLET (FP) PO SCH (09:56)
[2018-08-08] MEDS: NICOTINE 21 MG/24 HOURS TOPICAL PATCH TD SCH (09:56)
[2018-08-08] MEDS: MELATONIN 5 MG TABLETS PO PRN (21:25)
[2018-08-08] MEDS: THIAMINE HCL 100 MG TABLET (FP) PO SCH (21:25)
[2018-08-09] MEDS: METHADONE HCL 40 MG DISPERSABLE TABLET PO SCH (06:09)
[2018-08-09] MEDS: GABAPENTIN 300 MG CAPSULE (FP) PO SCH ×3 (06:09→21:26)
[2018-08-09] MEDS: PRENATAL VITAMINS W/ FOLIC ACID TABLET (FP) PO SCH (10:09)
[2018-08-09] MEDS: NICOTINE 21 MG/24 HOURS TOPICAL PATCH TD SCH (10:10)
[2018-08-09] MEDS: THIAMINE HCL 100 MG TABLET (FP) PO SCH (21:26)
[2018-08-09] MEDS: hydrOXYzine PAMOATE 50 MG CAPSULE (FP) PO PRN (21:26)
[2018-08-09] MEDS: MELATONIN 5 MG TABLETS PO PRN (21:26)
[2018-08-10] MEDS: GABAPENTIN 300 MG CAPSULE (FP) PO SCH ×3 (06:10→21:17)
[2018-08-10] MEDS: METHADONE HCL 40 MG DISPERSABLE TABLET PO SCH (06:10)
[2018-08-10 07:06] VITALS: TEMP 98
[2018-08-10] MEDS: NICOTINE 21 MG/24 HOURS TOPICAL PATCH TD SCH (09:58)
[2018-08-10] MEDS: hydrOXYzine PAMOATE 50 MG CAPSULE (FP) PO PRN ×2 (09:58→21:17)
[2018-08-10] MEDS: PRENATAL VITAMINS W/ FOLIC ACID TABLET (FP) PO SCH (09:58)
[2018-08-10] MEDS: IBUPROFEN 400 MG TABLET (FP) PO PRN (18:50)
[2018-08-10] MEDS: THIAMINE HCL 100 MG TABLET (FP) PO SCH (21:17)
[2018-08-10] MEDS: MELATONIN 5 MG TABLETS PO PRN (21:17)
[2018-08-11] MEDS: METHADONE HCL 40 MG DISPERSABLE TABLET PO SCH (06:20)
[2018-08-11] MEDS: GABAPENTIN 300 MG CAPSULE (FP) PO SCH ×3 (06:23→21:39)
[2018-08-11] MEDS: IBUPROFEN 400 MG TABLET (FP) PO PRN ×2 (06:23→12:48)
[2018-08-11] MEDS: NICOTINE 21 MG/24 HOURS TOPICAL PATCH TD SCH (10:00)
[2018-08-11] MEDS: PRENATAL VITAMINS W/ FOLIC ACID TABLET (FP) PO SCH (10:00)
[2018-08-11] MEDS: hydrOXYzine PAMOATE 50 MG CAPSULE (FP) PO PRN ×2 (15:42→21:39)
[2018-08-11] MEDS: THIAMINE HCL 100 MG TABLET (FP) PO SCH (21:39)
[2018-08-11] MEDS: MELATONIN 5 MG TABLETS PO PRN (21:39)
[2018-08-12] MEDS: METHADONE HCL 40 MG DISPERSABLE TABLET PO SCH (06:12)
[2018-08-12] MEDS: GABAPENTIN 300 MG CAPSULE (FP) PO SCH (06:12)
[2018-08-12] MEDS: IBUPROFEN 400 MG TABLET (FP) PO PRN (06:13)
[2018-08-12 07:28] VITALS: BP 130/81; PULSE 55
[2018-08-12] MEDS: NICOTINE 21 MG/24 HOURS TOPICAL PATCH TD SCH (10:14)
[2018-08-12] MEDS: PRENATAL VITAMINS W/ FOLIC ACID TABLET (FP) PO SCH (10:14)
[2018-08-12] MEDS: hydrOXYzine PAMOATE 50 MG CAPSULE (FP) PO PRN (10:14)
--- NOTE | 2018-08-12 11:33 | PN ---
[facility] Progress Note Note: Patient is discharged today. Script for 30 days supply of Gabapentin 300 mg po TID is electronically transmitted to [facility] at [address] [place] [id number]
== END 2018-08-12 11:58 | disposition home or self-care (01) | DRG 772 ==
LOC: YASAS 09:26 → UNDOADMIN 10:49 → Y6N 10:49 → Y3W 13:12
PROVIDERS: ADMIT Neuromusculoskeletal Medicine & OMM; ATTEND Neuromusculoskeletal Medicine & OMM
PROC: HZ42ZZZ Group Counseling for Substance Abuse Treatment, Cognitive-Behavioral (ICD-10-PCS; principal; 2018-08-04)
DX: F10.20 Alcohol dependence, uncomplicated (principal); F11.20 Opioid dependence, uncomplicated; F14.20 Cocaine dependence, uncomplicated; F43.10 Post-traumatic stress disorder, unspecified; F31.9 Bipolar disorder, unspecified; F19.280 Other psychoactive substance dependence with psychoactive substance-induced anxiety disorder; F19.282 Other psychoactive substance dependence with psychoactive substance-induced sleep disorder; I10 Essential (primary) hypertension; R01.1 Cardiac murmur, unspecified; S93.401D Sprain of unspecified ligament of right ankle, subsequent encounter; X58.XXXD Exposure to other specified factors, subsequent encounter; R26.2 Difficulty in walking, not elsewhere classified; Z99.89 Dependence on other enabling machines and devices; Z59.0 Homelessness
CPT/HCPCS: 36415; 80053; 81003; 85027; 86593

== ENCOUNTER 2018-09-15 09:26 | Inpatient (IN) | payer OTHER ==
[2018-09-15 10:43] VITALS: BMI 39.8
--- NOTE | 2018-09-15 11:11 | HP ---
CIWA Score Nausea/Vomitin Muscle Tremors: 2 Anxiety: 2 Agitation: 2 Paroxysmal Sweats: 1-Minimal Palms Moist Orientation: 0-Oriented Tacttile Disturbances: 1-Very Mild Itch/Numbness Auditory Disturbances: 1-Very Mild Visual Disturbances: 0-None Headache: 2-Mild CIWA-Ar Total Score: 13 - Admission Criteria OASAS Guidelines: Admission for Medically Managed Detox: Requires at least one of the followin. CIWA greater than 12 2. Seizures within the past 24 hours 3. Delirium tremens within the past 24 hours 4. Hallucinations within the past 24 hours 5. Acute intervention needed for co occurring medical disorder 6. Acute intervention needed for co occurring psychiatric disorder 7. Severe withdrawal that cannot be handled at a lower level of care (continued vomiting, continued diarrhea, abnormal vital signs) requiring intravenous medication and/or fluids 8. 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 long term care pharmacist rehab after detox Exam Limitations: No Limitations - Ebola screening Have you traveled outside of the country in the last 21 days: No Have you had contact with anyone from an Ebola affected area: No - Review of Systems Constitutional: Loss of Appetite, Malaise, Night Sweats, Changes in sleep, Weakness EENT: reports: Nose Congestion Respiratory: reports: No Symptoms reported Cardiac: reports: No Symptoms Reported GI: reports: Nausea, Poor Appetite, Vomiting, Abdominal cramping : reports: No Symptoms Reported Musculoskeletal: reports: Back Pain, Muscle Pain Integumentary: reports: Dryness Neuro: reports: Headache, Tremors Endocrine: reports: No Symptoms Reported Hematology: reports: No Symptoms Reported Psychiatric: reports: No Sypmtoms Reported, Judgement Intact, Mood/Affect Appropiate, Orientated x3, other (bipolar disorder,ptsd) Patient History - Patient Medical History Hx Anemia: No Hx Asthma: No Hx Chronic Obstructive Pulmonary Disease (COPD): No Hx Cancer: No Hx Cardiac Disorders: Yes (Hx of heart murmur.) Hx Congestive Heart Failure: No Hx Hypertension: Yes (Pt is not currently on meds.) Hx Hypercholesterolemia: No Hx Pacemaker: No HX Cerebrovascular Accident: No Hx Seizures: No Hx Dementia: No Hx Diabetes: No Hx Gastrointestinal Disorders: No Hx Liver Disease: No Hx Genitourinary Disorders: No Hx Sexually Transmitted Disorders: No Hx Renal Disease (ESRD): No Hx Thyroid Disease: No Hx Human Immunodeficiency Virus (HIV): No (Negative - last tested 07/29) Hx Hepatitis C: Yes (no treatment needed,folow up with pmd) Hx Depression: Yes Hx Suicide Attempt: No Hx Bipolar Disorder: Yes (on neurontin 300 mgs po tid) Hx Schizophrenia: No Other Medical History: no suicidal,no homicidal - Patient Surgical History Past Surgical History: Yes Hx Neurologic Surgery: No Hx Cataract Extraction: No Hx Cardiac Surgery: No Hx Lung Surgery: No Hx Breast Surgery: No Hx Breast Biopsy: No Hx Abdominal Surgery: No Hx Appendectomy: No Hx Cholecystectomy: No Hx Genitourinary Surgery: No Hx Section: No Hx Orthopedic Surgery: No Hx Hysterectomy: No Other Surgical History: c/section x 2007, TONSILLECTOMY AT AGE 10 Anesthesia Reaction: No - PPD History Previous Implant?: Yes Documented Results: Negative w/proof Implanted On Prior [facility] Admission?: Yes Date: 04/01/18 Results: NEGATIVE PPD to be Administered?: No - Reproductive History Patient is a Female of Child Bearing Age (11 -55 yrs old): Yes Last Menstrual Period: 09/12/18 Patient : No - Smoking Cessation Smoking history: Never smoked Have you smoked in the past 12 months: No Hx Chewing Tobacco Use: No - Substance & Tx. History Hx Alcohol Use: Yes Hx Substance Use: Yes Substance Use Type: Alcohol, Cocaine Hx Substance Use Treatment: Yes (06/22/18 to 06/25/18 [facility],rehab 08/04/18 to 10/26) - Substances abused Alcohol Substance route: Oral Frequency: Daily Amount used: pint of vodka and 3- 4 cans of 24 ounce beers Age of first use: 19 Date of last use: 09/15/18 Cocaine Substance route: Smoking Frequency: Daily Amount used: $100 daily Age of first use: 34 Date of last use: 09/15/18 Alprazolam (Xanax) Substance route: Oral Frequency: 1-2 times per week Amount used: 2 mgs Age of first use: 24 Date of last use: 09/13/18 Family Disease History - Family Disease History Family Disease History: Other: Father (Alcohol,sober), Mother (Acohol,sober), Brother (heroin) Admission Physical Exam [facility] - Vital Signs Vital Signs: Vital Signs - 24 hr 09/15/18 10:33 Temperature 98.2 F Pulse Rate 60 Respiratory 18 Rate Blood Pressure 118/70 - Physical General Appearance: Yes: Moderate Distress, Tremorous, Irritable, Sweating, Anxious HEENTM: Yes: Normal ENT Inspection, FADUMO, Pharynx Normal Respiratory: Yes: Lungs Clear, Normal Breath Sounds, No Respiratory Distress Neck: Yes: Within Normal Limits, Supple, Trachea in good position Breast: Yes: Breast Exam Deferred Cardiology: Yes: Within Normal Limits, Regular Rhythm, Regular Rate, S1, S2 Abdominal: Yes: Normal Bowel Sounds, Non Tender, Soft, Organomegaly Genitourinary: Yes: Within Normal Limits Back: Yes: Within Normal Limits, Normal Inspection, Muscle Spasm Musculoskeletal: Yes: Back pain, Muscle Pain Extremities: Yes: Within Normal Limits, Normal Range of Motion, Tremors Neurological: Yes: beauty school instructor II-XII NML intact, Fully Oriented, Alert, Motor Strength 5/5 Integumentary: Yes: Dry Lymphatic: Yes: Within Normal Limits - Diagnostic (1) Alcohol dependence with uncomplicated withdrawal Current Visit: No Status: Acute (2) Cocaine dependence Current Visit: No Status: Acute (3) Methadone maintenance therapy patient Current Visit: No Status: Acute (4) Bipolar disorder Current Visit: No Status: Chronic (5) Hypertension Current Visit: No Status: Chronic Qualifiers: Hypertension type: essential hypertension Qualified Code(s): I10 - Essential (primary) hypertension (6) Opioid dependence on agonist therapy Current Visit: No Status: Chronic (7) PTSD (post-traumatic stress disorder) Current Visit: No Status: Chronic Cleared for Admission [facility] - Detox or Rehab [facility] Level of Care: Medically Managed Detox Regimen/Protocol: Librium Breathalyzer - Breathalyzer Breathalyzer: 0 POC Urine test - Test device test lot number: [id number] Expiration date: 02/08/20 - Control test control: Yes - Result Urine Test Results: Negative - NO line present Urine Drug Screen - Test Device Lot number: [id number] Expiration date: 05/09/20 - Control Is test valid?: Yes - Results Drug screen NEGATIVE: No Urine drug screen results: TIFFANY-Cocaine, MTD-Methadone, BZO-Benzodiazepines Inpatient Rehab Admission - Rehab Decision to Admit Inpatient rehab admission?: No
[2018-09-15] MEDS ORDERED: ACETAMINOPHEN 325 MG TABLET (FP) PO PRN ×2 (11:19)
[2018-09-15] MEDS ORDERED: hydrOXYzine PAMOATE 25 MG CAPSULE (FP) PO PRN (11:19)
[2018-09-15] MEDS ORDERED: MAGNESIUM CITRATE 300 ML BOTTLE PO PRN (11:19)
[2018-09-15] MEDS ORDERED: MENTHOL/PHENOL 1 EACH UD MM PRN (11:19)
[2018-09-15] MEDS ORDERED: MAGNESIUM HYDROX 2400MG/30ML ORAL SUSPENSION 30 ML CUP PO PRN (11:19)
[2018-09-15] MEDS ORDERED: IBUPROFEN 400 MG TABLET (FP) PO PRN (11:19)
[2018-09-15] MEDS ORDERED: MAG HYDROX/AL HYDROX/SIMETH 30 ML UNIT-DOSE CUP PO PRN (11:19)
[2018-09-15] MEDS ORDERED: METHOCARBAMOL 500 MG TABLET PO PRN (11:19)
[2018-09-15] MEDS ORDERED: MELATONIN 5 MG TABLETS PO PRN (11:19)
[2018-09-15] MEDS ORDERED: BISMUTH SUBSALICYLATE 262 MG/15 ML BTL PO PRN (12:15)
[2018-09-15] MEDS: chlordiazePOXIDE HCL 25 MG CAPSULE PO PRN (13:41)
[2018-09-15] MEDS: GABAPENTIN 300 MG CAPSULE (FP) PO SCH ×2 (13:41→22:14)
[2018-09-15 15:24] LABS: HEMATOCRIT 33.9 % (32.4-45.2); HEMOGLOBIN 11.2 GM/dL (10.7-15.3); MCH 27.8 pg (25.7-33.7); MEAN CELL VOLUME 84.3 fl (80-96); MEAN PLT VOLUME 8.5 fl (7.5-11.1); PLATELET COUNT 319 K/MM3 (134-434); RBC 4.02 M/mm3 (3.60-5.2); RDW 14.9 % (11.6-15.6); WHITE BLOOD COUNT 6.2 K/mm3 (4.0-10.0)
[2018-09-15 15:36] LABS: ALBUMIN 3.7 g/dl (3.4-5.0); ALK PHOS 98 U/L (45-117); ANION GAP 6 MMOL/L (8-16); BILIRUBIN,TOTAL 0.4 mg/dL (0.2-1); BLOOD UREA NITROGEN 15 mg/dL (7-18); CALCIUM 8.9 mg/dL (8.5-10.1); CHLORIDE 105 mmol/L (98-107); CO2 27 mmol/L (21-32); CREATININE 0.7 mg/dL (0.55-1.3); GLUCOSE,RANDOM 96 mg/dL (74-106); POTASSIUM 4.4 mmol/L (3.5-5.1); SGOT/AST 12 U/L (15-37); SGPT/ALT 22 U/L (13-61); SODIUM 138 mmol/L (136-145); TOT PROT 7.3 g/dl (6.4-8.2)
[2018-09-15] MEDS: chlordiazePOXIDE HCL 25 MG CAPSULE PO SCH ×2 (17:13→22:15)
[2018-09-15] MEDS: THIAMINE HCL 100 MG TABLET (FP) PO SCH (22:15)
[2018-09-16] MEDS ORDERED: METHADONE HCL 10 MG TABLET ONE (04:27)
[2018-09-16] MEDS ORDERED: METHADONE HCL 40 MG DISPERSABLE TABLET ONE (04:28)
[2018-09-16] MEDS: METHADONE 40 MG, METHADONE 10 MG PO SCH (05:56)
[2018-09-16] MEDS: GABAPENTIN 300 MG CAPSULE (FP) PO SCH ×3 (05:56→22:27)
[2018-09-16] MEDS: chlordiazePOXIDE HCL 25 MG CAPSULE PO SCH ×4 (05:57→22:27)
[2018-09-16] MEDS ORDERED: METHADONE HCL 10 MG TABLET PO SCH (06:00)
[2018-09-16] MEDS ORDERED: METHADONE PO SCH (06:00)
[2018-09-16] MEDS: PRENATAL VITAMINS W/ FOLIC ACID TABLET (FP) PO SCH (10:25)
--- NOTE | 2018-09-16 14:46 | PN ---
[facility] CIWA - CIWA Score Nausea/Vomitin-No Nausea/No Vomiting Muscle Tremors: 2 Anxiety: 3 Agitation: 3 Paroxysmal Sweats: 1-Minimal Palms Moist Orientation: 0-Oriented Tacttile Disturbances: 0-None Auditory Disturbances: 0-None Visual Disturbances: 0-None Headache: 1-Very Mild CIWA-Ar Total Score: 10 [facility] Progress Note (SOAP) Subjective: taking methadone 50 mg daily feeling ok today trouble sleep at night Objective: 09/16/18 14:46 Vital Signs Temperature 96 F L 09/16/18 13:23 Pulse Rate 68 09/16/18 13:23 Respiratory Rate 20 09/16/18 13:23 Blood Pressure 128/76 09/16/18 13:23 O2 Sat by Pulse Oximetry (%) Laboratory Last Values WBC 6.2 K/mm3 (4.0-10.0) 09/15/18 11:35 RBC 4.02 M/mm3 (3.60-5.2) 09/15/18 11:35 Hgb 11.2 GM/dL (10.7-15.3) 09/15/18 11:35 Hct 33.9 % (32.4-45.2) 09/15/18 11:35 MCV 84.3 fl (80-96) 09/15/18 11:35 MCH 27.8 pg (25.7-33.7) 09/15/18 11:35 MCHC 33.0 g/dl (32.0-36.0) 09/15/18 11:35 RDW 14.9 % (11.6-15.6) 09/15/18 11:35 Plt Count 319 K/MM3 (134-434) 09/15/18 11:35 MPV 8.5 fl (7.5-11.1) 09/15/18 11:35 Sodium 138 mmol/L (136-145) 09/15/18 11:35 Potassium 4.4 mmol/L (3.5-5.1) 09/15/18 11:35 Chloride 105 mmol/L (98-107) 09/15/18 11:35 Carbon Dioxide 27 mmol/L (21-32) 09/15/18 11:35 Anion Gap 6 MMOL/L (8-16) L 09/15/18 11:35 BUN 15 mg/dL (7-18) 09/15/18 11:35 Creatinine 0.7 mg/dL (0.55-1.3) 09/15/18 11:35 Creat Clearance w eGFR 93.16 (>60) 09/15/18 11:35 Random Glucose 96 mg/dL (74-106) 09/15/18 11:35 Calcium 8.9 mg/dL (8.5-10.1) 09/15/18 11:35 Total Bilirubin 0.4 mg/dL (0.2-1) 09/15/18 11:35 AST 12 U/L (15-37) L 09/15/18 11:35 ALT 22 U/L (13-61) 09/15/18 11:35 Alkaline Phosphatase 98 U/L (45-117) 09/15/18 11:35 Total Protein 7.3 g/dl (6.4-8.2) 09/15/18 11:35 Albumin 3.7 g/dl (3.4-5.0) 09/15/18 11:35 RPR Titer Nonreactive (NONREACTIVE) 09/15/18 11:35 lab noted Assessment: 09/16/18 14:46 withdrawal sx Plan: continue detox
[2018-09-16 15:12] LABS: EPI CELLS 24.6 /HPF (0-5/HPF); PH,URINE 5.5 (5.0-8.0); URINE APPEARANCE CLOUDY; URINE BACTERIA 233.9 /hpf (NEGATIVE); URINE BILIRUBIN NEGATIVE (NEGATIVE); URINE CASTS 5 /hpf (0-8); URINE COLOR YELLOW; URINE GLUCOSE (UA) NEGATIVE (NEGATIVE); URINE KETONE NEGATIVE (NEGATIVE); URINE LEUK ESTERASE 1+ (NEGATIVE); URINE NITRITE NEGATIVE (NEGATIVE); URINE PROTEIN NEGATIVE (NEGATIVE); URINE UROBILINOGEN 0.2 mg/dL (0.2-1.0); URINE WBC 16 /hpf (0-5)
[2018-09-16 15:42] LABS: URINE RBC 2.8 /hpf (0-4)
[2018-09-16] MEDS ORDERED: hydrOXYzine HCL 25 MG TABLET (FP) PO PRN (18:39)
[2018-09-16] MEDS: THIAMINE HCL 100 MG TABLET (FP) PO SCH (22:27)
[2018-09-17] MEDS ORDERED: METHADONE HCL 10 MG TABLET ONE (04:36)
[2018-09-17] MEDS ORDERED: METHADONE HCL 40 MG DISPERSABLE TABLET ONE (04:37)
[2018-09-17] MEDS: METHADONE 40 MG, METHADONE 10 MG PO SCH (06:19)
[2018-09-17] MEDS: GABAPENTIN 300 MG CAPSULE (FP) PO SCH ×2 (06:19→13:19)
[2018-09-17] MEDS: chlordiazePOXIDE HCL 25 MG CAPSULE PO SCH ×2 (06:20→10:24)
[2018-09-17] MEDS: chlordiazePOXIDE HCL 25 MG CAPSULE PO PRN (08:31)
[2018-09-17 09:40] VITALS: TEMP 98.6
[2018-09-17] MEDS: PRENATAL VITAMINS W/ FOLIC ACID TABLET (FP) PO SCH (10:24)
[2018-09-17 13:33] VITALS: BP 119/80; PULSE 74
--- NOTE | 2018-09-17 15:36 | DS ---
[facility] Detox Discharge Summary Admission Date: 09/15/18 Discharge Date: 09/17/18 - History Pertinent Past History: pt admitted for detox from alcohol use. Pt in methadone MAT. Pt completed 2 days. Pt leaving AMA today as she needs to help her who is being discharged today also from detox. d/w pt options for AUD treatment with Campral/ disulfiram, groups. etc.. Pt states that she still needs help from withdrawal symptoms and will try to go to another detox facility - Physical Exam Results Vital Signs: Vital Signs Temperature 98.6 F 09/17/18 13:32 Pulse Rate 74 09/17/18 13:32 Respiratory Rate 18 09/17/18 13:32 Blood Pressure 119/80 09/17/18 13:32 O2 Sat by Pulse Oximetry (%) - Treatment Hospital Course: Detox Protocol Followed - Medication Discharge Medications: Ambulatory Orders Methadone [Dolophine -] 50 mg PO DAILY 08/04/18 Gabapentin [Neurontin -] 300 mg PO TID #90 capsule 08/12/18 - AMA Did Patient Leave Against Medical Advice: Yes
[2018-09-17] MEDS ORDERED: chlordiazePOXIDE HCL 10 MG CAPSULE PO PRN (17:00)
[2018-09-17] MEDS ORDERED: chlordiazePOXIDE HCL 10 MG CAPSULE PO SCH (17:00)
[2018-09-18] MEDS ORDERED: chlordiazePOXIDE HCL 10 MG CAPSULE PO SCH (17:00)
== END 2018-09-17 15:40 | disposition left against medical advice (07) | DRG 770 ==
LOC: YASAS 09:26 → Y3N 11:58
PROVIDERS: ADMIT Surgery; ATTEND Surgery
PROC: HZ2ZZZZ Detoxification Services for Substance Abuse Treatment (ICD-10-PCS; principal; 2018-09-15)
DX: F10.230 Alcohol dependence with withdrawal, uncomplicated (principal); F11.20 Opioid dependence, uncomplicated; F14.20 Cocaine dependence, uncomplicated; F31.9 Bipolar disorder, unspecified; F43.10 Post-traumatic stress disorder, unspecified; I10 Essential (primary) hypertension; B18.2 Chronic viral hepatitis C; R01.1 Cardiac murmur, unspecified
CPT/HCPCS: 36415; 80053; 81003; 85027; 86593

== ENCOUNTER 2018-10-06 08:29 | Inpatient (IN) | payer OTHER ==
[2018-10-06 09:01] VITALS: BMI 34.3
--- NOTE | 2018-10-06 09:34 | HP ---
COWS - Scale Resting Pulse: 0= [place] 80 or Below Sweatin= Chills/Flushing Restless Observation: 3= Extraneous Movement Pupil Size: 1= Pupils >than Normal Bone or Joint Aches: 2= Severe Diffuse Aches Runny Nose/ Eye Tearin= Runny Nose/Eyes GI Upset > 30mins: 2= Nausea/Diarrhea Tremor Observation: 2= Slight Tremor Visible Yawning Observation: 2= >3x During Session Anxiety or Irritability: 2=Irritable/Anxious Goose Flesh Skin: 0=Smooth Skin COWS Score: 17 CIWA Score Nausea/Vomitin Muscle Tremors: 3 Anxiety: 3 Agitation: 3 Paroxysmal Sweats: 1-Minimal Palms Moist Orientation: 0-Oriented Tacttile Disturbances: 1-Very Mild Itch/Numbness Auditory Disturbances: 1-Very Mild Visual Disturbances: 0-None Headache: 2-Mild CIWA-Ar Total Score: 16 - Admission Criteria [facility] Guidelines: Admission for Medically Managed Detox: Requires at least one of the followin. CIWA greater than 12 2. Seizures within the past 24 hours 3. Delirium tremens within the past 24 hours 4. Hallucinations within the past 24 hours 5. Acute intervention needed for co occurring medical disorder 6. Acute intervention needed for co occurring psychiatric disorder 7. Severe withdrawal that cannot be handled at a lower level of care (continued vomiting, continued diarrhea, abnormal vital signs) requiring intravenous medication and/or fluids 8. Admission ROS [facility] Chief Complaint: i need help to stop using heroin,alcohol and crack Allergies/Adverse Reactions: Allergies Allergy/AdvReac Type Severity Reaction Status Date / Time No Known Allergies Allergy Verified 10/06/18 08:52 History of Present Illness: this 38 years old female with heroin,alcohol and cocaine dependence,seeking detox,withdrawal symptom, multiple admissions in detox,last 09/15/18 to 09/17/18 not completed due to emergency problem with her daughter syncope alcohol related history of hypertension no medication longest sobriety 2 years ptsd,anxiety and depression,no medication plan to complete detox and go to rehab hepatitis c no treatment bipolar disorder,ptsd Exam Limitations: No Limitations - Ebola screening Have you traveled outside of the country in the last 21 days: No Have you had contact with anyone from an Ebola affected area: No Do you have a fever: No - Review of Systems Constitutional: Chills, Loss of Appetite, Malaise, Night Sweats, Changes in sleep, Weakness EENT: reports: Tearing, Nose Congestion Respiratory: reports: No Symptoms reported Cardiac: reports: No Symptoms Reported GI: reports: Diarrhea, Nausea, Poor Appetite, Abdominal cramping : reports: No Symptoms Reported Musculoskeletal: reports: Back Pain, Muscle Pain Integumentary: reports: Dryness Neuro: reports: Headache, Tremors Endocrine: reports: No Symptoms Reported Hematology: reports: No Symptoms Reported Psychiatric: reports: No Sypmtoms Reported, Judgement Intact, Mood/Affect Appropiate, Orientated x3, Anxious, Depressed (ptsd), other (bipolar disorder, ptsd) Patient History - Patient Medical History Hx Anemia: No Hx Asthma: No Hx Chronic Obstructive Pulmonary Disease (COPD): No Hx Cancer: No Hx Cardiac Disorders: Yes (Hx of heart murmur.) Hx Congestive Heart Failure: No Hx Hypertension: Yes (Pt is not currently on meds.) Hx Hypercholesterolemia: No Hx Pacemaker: No HX Cerebrovascular Accident: No Hx Seizures: No Hx Dementia: No Hx Diabetes: No Hx Gastrointestinal Disorders: No Hx Liver Disease: No Hx Genitourinary Disorders: No Hx Sexually Transmitted Disorders: No Hx Renal Disease (ESRD): No Hx Thyroid Disease: No Hx Human Immunodeficiency Virus (HIV): No (Negative - last tested 07/29) Hx Hepatitis C: Yes (no treatment needed,folow up with pmd) Hx Depression: Yes Hx Suicide Attempt: No Hx Bipolar Disorder: Yes (on neurontin 300 mgs po tid last 2 days ago) Hx Schizophrenia: No Other Medical History: no suicidal,no hmicidal,ptsd - Patient Surgical History Past Surgical History: Yes Hx Neurologic Surgery: No Hx Cataract Extraction: No Hx Cardiac Surgery: No Hx Lung Surgery: No Hx Breast Surgery: No Hx Breast Biopsy: No Hx Abdominal Surgery: No Hx Appendectomy: No Hx Cholecystectomy: No Hx Genitourinary Surgery: No Hx Section: No Hx Orthopedic Surgery: No Hx Hysterectomy: No Other Surgical History: c/section x 2007, TONSILLECTOMY AT AGE 10 Anesthesia Reaction: No - PPD History Previous Implant?: Yes Documented Results: Negative w/o proof Implanted On Prior [facility] Admission?: Yes Date: 04/01/18 Results: NEGATIVE PPD to be Administered?: No - Reproductive History Patient is a Female of Child Bearing Age (11 -55 yrs old): Yes Last Menstrual Period: 09/12/18 Patient : No - Smoking Cessation Smoking history: Never smoked Have you smoked in the past 12 months: No Hx Chewing Tobacco Use: No - Substance & Tx. History Hx Alcohol Use: Yes Hx Substance Use: Yes Substance Use Type: Alcohol, Cocaine, Heroin Hx Substance Use Treatment: Yes ([facility] 09/15/18 t0 09/17/18 not completed) - Substances abused Alcohol Substance route: Oral Frequency: Daily Amount used: 1 pint of vodka and 3- 4 cans beers ( 24 ounce beers Age of first use: 19 Date of last use: 10/06/18 Cocaine Substance route: Smoking Frequency: Daily Amount used: $100 daily Age of first use: 34 Date of last use: 09/15/18 Alprazolam (Xanax) Substance route: Oral Frequency: 1-2 times per week Amount used: 2 mgs Age of first use: 24 Date of last use: 09/13/18 Heroin Substance route: Inhalation Frequency: Daily Amount used: 5 bags Age of first use: 26 Date of last use: 10/06/18 Crack Substance route: Smoking Frequency: Daily Amount used: $50 Age of first use: 34 Date of last use: 10/05/18 Family Disease History - Family Disease History Family Disease History: Other: Father (Alcohol,sober), Mother (Acohol,sober), Brother (heroin) Admission Physical Exam S - Vital Signs Vital Signs: Vital Signs - 24 hr 10/06/18 08:48 Temperature 98.2 F Pulse Rate 58 L Respiratory 18 Rate Blood Pressure 137/85 - Physical General Appearance: Yes: Moderate Distress, Alcohol on Breath, Tremorous, Irritable, Sweating, Anxious HEENTM: Yes: Normal ENT Inspection, FADUMO, Pharynx Normal Respiratory: Yes: Within Normal Limits, Lungs Clear, Normal Breath Sounds Neck: Yes: Within Normal Limits, Supple, Trachea in good position Breast: Yes: Breast Exam Deferred Cardiology: Yes: S1, S2, Bradycardia Abdominal: Yes: Within Normal Limits, Normal Bowel Sounds, Non Tender, Soft Genitourinary: Yes: Within Normal Limits Musculoskeletal: Yes: Muscle Pain, Muscle weakness Neurological: Yes: heel seam rubber II-XII NML intact, Fully Oriented, Alert, Motor Strength 5/5 Integumentary: Yes: Dry Lymphatic: Yes: Within Normal Limits - Diagnostic (1) Opioid dependence with withdrawal Current Visit: No Status: Acute (2) Alcohol dependence with uncomplicated withdrawal Current Visit: No Status: Acute (3) Bipolar disorder Current Visit: No Status: Chronic (4) Hypertension Current Visit: No Status: Chronic Qualifiers: Hypertension type: essential hypertension Qualified Code(s): I10 - Essential (primary) hypertension (5) PTSD (post-traumatic stress disorder) Current Visit: No Status: Chronic (6) Hx of essential hypertension Current Visit: No Status: Suspected (7) Cocaine dependence Current Visit: No Status: Acute Cleared for Admission S - Detox or Rehab [facility] Level of Care: Medically Managed Detox Regimen/Protocol: Methadone/Librium Breathalyzer - Breathalyzer Breathalyzer: 0 POC Urine test - Test device test lot number: [id number] Expiration date: 03/09/20 - Control test control: Yes - Result Urine Test Results: Negative - NO line present Urine Drug Screen - Test Device Lot number: [id number] Expiration date: 05/09/20 - Control Is test valid?: Yes - Results Drug screen NEGATIVE: No Urine drug screen results: TIFFANY-Cocaine, FEN-Fentanyl, MOP-Opiates, MTD-Methadone , BZO-Benzodiazepines Inpatient Rehab Admission - Rehab Decision to Admit Inpatient rehab admission?: No
[2018-10-06] MEDS ORDERED: MAGNESIUM CITRATE 300 ML BOTTLE PO PRN (09:43)
[2018-10-06] MEDS ORDERED: MAG HYDROX/AL HYDROX/SIMETH 30 ML UNIT-DOSE CUP PO PRN (09:43)
[2018-10-06] MEDS ORDERED: MENTHOL/PHENOL 1 EACH UD MM PRN (09:43)
[2018-10-06] MEDS ORDERED: MAGNESIUM HYDROX 2400MG/30ML ORAL SUSPENSION 30 ML CUP PO PRN (09:43)
[2018-10-06] MEDS ORDERED: METHOCARBAMOL 500 MG TABLET PO PRN (09:43)
[2018-10-06] MEDS ORDERED: IBUPROFEN 400 MG TABLET (FP) PO PRN (09:43)
[2018-10-06] MEDS ORDERED: BISMUTH SUBSALICYLATE 262 MG/15 ML BTL PO PRN (09:43)
[2018-10-06] MEDS ORDERED: ACETAMINOPHEN 325 MG TABLET (FP) PO PRN ×2 (09:43)
[2018-10-06] MEDS ORDERED: METHADONE HCL 10 MG TABLET (FOR DETOX USE ONLY) PO ONE ×3 (12:00→23:00)
[2018-10-06] MEDS: PRENATAL VITAMINS W/ FOLIC ACID TABLET (FP) PO SCH (12:09)
[2018-10-06] MEDS ORDERED: chlordiazePOXIDE HCL 25 MG CAPSULE PO PRN (12:13)
[2018-10-06 12:28] LABS: HEMATOCRIT 38.1 % (32.4-45.2); HEMOGLOBIN 12.9 GM/dL (10.7-15.3); MCH 28.6 pg (25.7-33.7); MCHC 33.9 g/dl (32.0-36.0); MEAN CELL VOLUME 84.1 fl (80-96); MEAN PLT VOLUME 8.7 fl (7.5-11.1); PLATELET COUNT 253 K/MM3 (134-434); RBC 4.53 M/mm3 (3.60-5.2); RDW 14.4 % (11.6-15.6); WHITE BLOOD COUNT 7.4 K/mm3 (4.0-10.0)
[2018-10-06 12:31] LABS: ALBUMIN 4.2 g/dl (3.4-5.0); ALK PHOS 106 U/L (45-117); ANION GAP 6 MMOL/L (8-16); BILIRUBIN,TOTAL 0.4 mg/dL (0.2-1); BLOOD UREA NITROGEN 16 mg/dL (7-18); CALCIUM 9.6 mg/dL (8.5-10.1); CHLORIDE 105 mmol/L (98-107); CO2 28 mmol/L (21-32); CREATININE 0.7 mg/dL (0.55-1.3); GLUCOSE,RANDOM 82 mg/dL (74-106); POTASSIUM 4.4 mmol/L (3.5-5.1); SGOT/AST 12 U/L (15-37); SGPT/ALT 18 U/L (13-61); SODIUM 139 mmol/L (136-145); TOT PROT 7.6 g/dl (6.4-8.2)
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
[2018-10-06] MEDS: GABAPENTIN 300 MG CAPSULE (FP) PO SCH ×2 (15:15→22:30)
[2018-10-06] MEDS: cloNIDine HCL 0.1 MG TABLET PO PRN (15:28)
[2018-10-06 16:24] LABS: EPI CELLS 13.3 /HPF (0-5/HPF); PH,URINE 6.5 (5.0-8.0); URINE APPEARANCE CLOUDY; URINE BACTERIA 819.8 /hpf (NEGATIVE); URINE BILIRUBIN NEGATIVE (NEGATIVE); URINE CASTS 13 /lpf (0-8); URINE COLOR YELLOW; URINE GLUCOSE (UA) NEGATIVE (NEGATIVE); URINE KETONE NEGATIVE (NEGATIVE); URINE LEUK ESTERASE 2+ (NEGATIVE); URINE NITRITE NEGATIVE (NEGATIVE); URINE PROTEIN NEGATIVE (NEGATIVE); URINE RBC 2 /hpf (0-4); URINE UROBILINOGEN 0.2 mg/dL (0.2-1.0); URINE WBC 23 /hpf (0-5)
[2018-10-06] MEDS: chlordiazePOXIDE HCL 25 MG CAPSULE PO SCH ×2 (18:38→22:31)
[2018-10-06] MEDS: THIAMINE HCL 100 MG TABLET (FP) PO SCH (22:31)
[2018-10-07] MEDS: chlordiazePOXIDE HCL 25 MG CAPSULE PO SCH ×4 (05:28→22:12)
[2018-10-07] MEDS: GABAPENTIN 300 MG CAPSULE (FP) PO SCH ×3 (05:29→22:12)
[2018-10-07] MEDS ORDERED: METHADONE HCL 10 MG TABLET (FOR DETOX USE ONLY) PO ONE (10:00)
[2018-10-07] MEDS: PRENATAL VITAMINS W/ FOLIC ACID TABLET (FP) PO SCH (10:27)
--- NOTE | 2018-10-07 11:49 | PN ---
[facility] CIWA - CIWA Score Nausea/Vomitin-No Nausea/No Vomiting Muscle Tremors: 2 Anxiety: 2 Agitation: 2 Paroxysmal Sweats: 2 Orientation: 0-Oriented Tacttile Disturbances: 0-None Auditory Disturbances: 0-None Visual Disturbances: 0-None Headache: 0-None Present CIWA-Ar Total Score: 8 S COWS - Scale Resting Pulse: 0= [place] 80 or Below Sweatin=Flushed/Facial Moisture Restless Observation: 1= Difficult to Sit Still Pupil Size: 0= Normal to Room Light Bone or Joint Aches: 1= Mild Discomfort Runny Nose/ Eye Tearin= None GI Upset > 30mins: 0= None Tremor Observation of Outstretched Hands: 2= Slight Tremor Visible Yawning Observation: 1= 1-2x During Session Anxiety or Irritability: 2=Irritable/Anxious Goose Flesh Skin: 0=Smooth Skin COWS Score: 9 S Progress Note (SOAP) Subjective: tired sleepy sweats mild shakes interrupted sleep Objective: 10/07/18 11:48 Vital Signs Temperature 97.3 F L 10/07/18 10:30 Pulse Rate 75 10/07/18 10:30 Respiratory Rate 18 10/07/18 10:30 Blood Pressure 105/51 L 10/07/18 10:30 O2 Sat by Pulse Oximetry (%) Laboratory Tests 10/06/18 10/06/18 10/06/18 09:40 09:40 09:40 WBC 7.4 RBC 4.53 Hgb 12.9 Hct 38.1 MCV 84.1 MCH 28.6 MCHC 33.9 RDW 14.4 Plt Count 253 D MPV 8.7 Sodium 139 Potassium 4.4 Chloride 105 Carbon Dioxide 28 Anion Gap 6 L BUN 16 Creatinine 0.7 Creat Clearance w eGFR 93.16 Random Glucose 82 Calcium 9.6 Total Bilirubin 0.4 AST 12 L ALT 18 Alkaline Phosphatase 106 Total Protein 7.6 Albumin 4.2 Urine Color Urine Appearance Urine pH Ur Specific [place] Urine Protein Urine Glucose (UA) Urine Ketones Urine Blood Urine Nitrite Urine Bilirubin Urine Urobilinogen Ur Leukocyte Esterase Urine WBC (Auto) Urine RBC (Auto) Urine Casts (Auto) U Epithel Cells (Auto) Urine Bacteria (Auto) RPR Titer Nonreactive 10/06/18 14:50 WBC RBC Hgb Hct MCV MCH MCHC RDW Plt Count MPV Sodium Potassium Chloride Carbon Dioxide Anion Gap BUN Creatinine Creat Clearance w eGFR Random Glucose Calcium Total Bilirubin AST ALT Alkaline Phosphatase Total Protein Albumin Urine Color Yellow Urine Appearance Cloudy Urine pH 6.5 Ur Specific [place] 1.024 Urine Protein Negative Urine Glucose (UA) Negative Urine Ketones Negative Urine Blood Negative Urine Nitrite Negative Urine Bilirubin Negative Urine Urobilinogen 0.2 Ur Leukocyte Esterase 2+ H Urine WBC (Auto) 23 Urine RBC (Auto) 2 Urine Casts (Auto) 13 U Epithel Cells (Auto) 13.3 Urine Bacteria (Auto) 819.8 RPR Titer labs noted aaox3 ambulating no acute distress repeat u/a Assessment: 10/07/18 11:49 withdrawal sx Plan: continue detox increase fluids repeat u/a
[2018-10-07] MEDS: cloNIDine HCL 0.1 MG TABLET PO PRN (13:25)
[2018-10-07] MEDS: THIAMINE HCL 100 MG TABLET (FP) PO SCH (22:12)
[2018-10-07] MEDS: hydrOXYzine PAMOATE 25 MG CAPSULE (FP) PO PRN (22:14)
[2018-10-08] MEDS: chlordiazePOXIDE HCL 25 MG CAPSULE PO SCH ×2 (06:16→10:06)
[2018-10-08] MEDS: GABAPENTIN 300 MG CAPSULE (FP) PO SCH ×3 (06:16→22:06)
[2018-10-08] MEDS ORDERED: METHADONE HCL 10 MG TABLET (FOR DETOX USE ONLY) PO ONE (10:00)
[2018-10-08] MEDS: PRENATAL VITAMINS W/ FOLIC ACID TABLET (FP) PO SCH (10:06)
[2018-10-08 10:31] LABS: EPI CELLS 3.3 /HPF (0-5/HPF); PH,URINE 5.5 (5.0-8.0); URINE APPEARANCE CLEAR; URINE BACTERIA 68.6 /hpf (NEGATIVE); URINE BILIRUBIN NEGATIVE (NEGATIVE); URINE CASTS 1 /lpf (0-8); URINE COLOR YELLOW; URINE GLUCOSE (UA) NEGATIVE (NEGATIVE); URINE KETONE NEGATIVE (NEGATIVE); URINE LEUK ESTERASE 1+ (NEGATIVE); URINE NITRITE NEGATIVE (NEGATIVE); URINE PROTEIN NEGATIVE (NEGATIVE); URINE RBC 3 /hpf (0-4); URINE UROBILINOGEN 0.2 mg/dL (0.2-1.0); URINE WBC 7 /hpf (0-5)
--- NOTE | 2018-10-08 11:42 | PN ---
[facility] CIWA - CIWA Score Nausea/Vomitin-No Nausea/No Vomiting Muscle Tremors: 2 Anxiety: 2 Agitation: 2 Paroxysmal Sweats: 1-Minimal Palms Moist Orientation: 0-Oriented Tacttile Disturbances: 0-None Auditory Disturbances: 0-None Visual Disturbances: 0-None Headache: 0-None Present CIWA-Ar Total Score: 7 [facility] COWS - Scale Resting Pulse: 0= [place] 80 or Below Sweatin= Chills/Flushing Restless Observation: 0= Sits Still Pupil Size: 0= Normal to Room Light Bone or Joint Aches: 1= Mild Discomfort Runny Nose/ Eye Tearin= Nasal Congestion GI Upset > 30mins: 0= None Tremor Observation of Outstretched Hands: 1= Tremor [place], Not Seen Yawning Observation: 1= 1-2x During Session Anxiety or Irritability: 2=Irritable/Anxious Goose Flesh Skin: 0=Smooth Skin COWS Score: 7 S Progress Note (SOAP) Subjective: sweats shakes body aches interrupted sleep Objective: 10/08/18 11:47 Vital Signs Temperature 99.5 F 10/08/18 09:13 Pulse Rate 65 10/08/18 09:13 Respiratory Rate 18 10/08/18 09:13 Blood Pressure 130/90 10/08/18 09:13 O2 Sat by Pulse Oximetry (%) Laboratory Tests 10/06/18 10/06/18 10/06/18 09:40 09:40 09:40 WBC 7.4 RBC 4.53 Hgb 12.9 Hct 38.1 MCV 84.1 MCH 28.6 MCHC 33.9 RDW 14.4 Plt Count 253 D MPV 8.7 Sodium 139 Potassium 4.4 Chloride 105 Carbon Dioxide 28 Anion Gap 6 L BUN 16 Creatinine 0.7 Creat Clearance w eGFR 93.16 Random Glucose 82 Calcium 9.6 Total Bilirubin 0.4 AST 12 L ALT 18 Alkaline Phosphatase 106 Total Protein 7.6 Albumin 4.2 Urine Color Urine Appearance Urine pH Ur Specific [place] Urine Protein Urine Glucose (UA) Urine Ketones Urine Blood Urine Nitrite Urine Bilirubin Urine Urobilinogen Ur Leukocyte Esterase Urine WBC (Auto) Urine RBC (Auto) Urine Casts (Auto) U Epithel Cells (Auto) Urine Bacteria (Auto) POC Urine HCG, Qual RPR Titer Nonreactive 10/06/18 10/06/18 10/08/18 14:50 16:17 07:00 WBC RBC Hgb Hct MCV MCH MCHC RDW Plt Count MPV Sodium Potassium Chloride Carbon Dioxide Anion Gap BUN Creatinine Creat Clearance w eGFR Random Glucose Calcium Total Bilirubin AST ALT Alkaline Phosphatase Total Protein Albumin Urine Color Yellow Yellow Urine Appearance Cloudy Clear Urine pH 6.5 5.5 Ur Specific [place] 1.024 1.010 Urine Protein Negative Negative Urine Glucose (UA) Negative Negative Urine Ketones Negative Negative Urine Blood Negative Negative Urine Nitrite Negative Negative Urine Bilirubin Negative Negative Urine Urobilinogen 0.2 0.2 Ur Leukocyte Esterase 2+ H 1+ H Urine WBC (Auto) 23 7 Urine RBC (Auto) 2 3 Urine Casts (Auto) 13 1 U Epithel Cells (Auto) 13.3 3.3 Urine Bacteria (Auto) 819.8 68.6 POC Urine HCG, Qual Negative RPR Titer labs noted aaox3 ambulating no acute distress repeated u/a results show improvement Assessment: 10/08/18 11:47 mild withdrawal sx Plan: continue detox increase fluids
[2018-10-08] MEDS: cloNIDine HCL 0.1 MG TABLET PO PRN ×2 (12:16→22:06)
[2018-10-08] MEDS ORDERED: chlordiazePOXIDE HCL 10 MG CAPSULE PO PRN (17:00)
[2018-10-08] MEDS: chlordiazePOXIDE HCL 10 MG CAPSULE PO SCH ×2 (17:12→22:06)
[2018-10-08] MEDS: hydrOXYzine PAMOATE 25 MG CAPSULE (FP) PO PRN (22:06)
[2018-10-08] MEDS: MELATONIN 5 MG TABLETS PO PRN (22:06)
[2018-10-08] MEDS: THIAMINE HCL 100 MG TABLET (FP) PO SCH (22:20)
[2018-10-09] MEDS: chlordiazePOXIDE HCL 10 MG CAPSULE PO SCH ×3 (06:07→17:10)
[2018-10-09] MEDS: GABAPENTIN 300 MG CAPSULE (FP) PO SCH ×3 (06:07→22:00)
[2018-10-09] MEDS ORDERED: METHADONE HCL 5 MG TABLET (FOR DETOX USE ONLY) ONE (09:18)
[2018-10-09] MEDS ORDERED: METHADONE HCL 10 MG TABLET (FOR DETOX USE ONLY) ONE (09:18)
[2018-10-09] MEDS ORDERED: METHADONE HCL 10 MG TABLET (FOR DETOX USE ONLY) PO ONE (10:00)
[2018-10-09] MEDS ORDERED: METHADONE (DETOX) 10 MG, METHADONE (DETOX) 5 MG PO ONE (10:00)
[2018-10-09] MEDS: PRENATAL VITAMINS W/ FOLIC ACID TABLET (FP) PO SCH (10:02)
--- NOTE | 2018-10-09 10:24 | PN ---
[facility] CIWA - CIWA Score Nausea/Vomitin-No Nausea/No Vomiting Muscle Tremors: 2 Anxiety: 1-Mildly Anxious Agitation: 2 Paroxysmal Sweats: 1-Minimal Palms Moist Orientation: 0-Oriented Tacttile Disturbances: 0-None Auditory Disturbances: 0-None Visual Disturbances: 0-None Headache: 0-None Present CIWA-Ar Total Score: 6 BHS COWS - Scale Resting Pulse: 0= [place] 80 or Below Sweatin= Chills/Flushing Restless Observation: 0= Sits Still Pupil Size: 0= Normal to Room Light Bone or Joint Aches: 1= Mild Discomfort Runny Nose/ Eye Tearin= Nasal Congestion GI Upset > 30mins: 0= None Tremor Observation of Outstretched Hands: 1= Tremor [place], Not Seen Yawning Observation: 1= 1-2x During Session Anxiety or Irritability: 1=Feels Anxious/Irritable Goose Flesh Skin: 0=Smooth Skin COWS Score: 6 [facility] Progress Note (SOAP) Subjective: sweats anxiety Objective: 10/09/18 10:24 Vital Signs Temperature 98.6 F 10/09/18 10:07 Pulse Rate 80 10/09/18 10:07 Respiratory Rate 18 10/09/18 10:07 Blood Pressure 141/84 10/09/18 10:07 O2 Sat by Pulse Oximetry (%) aaox3 ambulating no acute distress Assessment: 10/09/18 10:24 mild withdrawal sx Plan: continue detox increase fluids
[2018-10-09] MEDS: hydrOXYzine PAMOATE 25 MG CAPSULE (FP) PO PRN ×2 (14:08→22:00)
[2018-10-09] MEDS: THIAMINE HCL 100 MG TABLET (FP) PO SCH (22:00)
[2018-10-09] MEDS: MELATONIN 5 MG TABLETS PO PRN (22:00)
[2018-10-10] MEDS: chlordiazePOXIDE HCL 10 MG CAPSULE PO SCH (05:41)
[2018-10-10] MEDS: GABAPENTIN 300 MG CAPSULE (FP) PO SCH (05:41)
[2018-10-10] MEDS ORDERED: METHADONE HCL 5 MG TABLET (FOR DETOX USE ONLY) PO ONE (06:00)
[2018-10-10 06:55] VITALS: TEMP 98.2
[2018-10-10 09:34] VITALS: BP 140/78; PULSE 105
[2018-10-10] MEDS ORDERED: METHADONE HCL 10 MG TABLET (FOR DETOX USE ONLY) PO ONE (10:00)
--- NOTE | 2018-10-10 19:13 | PN ---
S CIWA - CIWA Score Nausea/Vomitin-No Nausea/No Vomiting Muscle Tremors: None Anxiety: 2 Agitation: 0-Normal Activity Paroxysmal Sweats: 2 Orientation: 0-Oriented Tacttile Disturbances: 1-Very Mild Itch/Numbness Auditory Disturbances: 0-None Visual Disturbances: 0-None Headache: 0-None Present CIWA-Ar Total Score: 5 BHS COWS - Scale Resting Pulse: 2= [place] 101-120 Sweatin= Chills/Flushing Restless Observation: 1= Difficult to Sit Still Pupil Size: 0= Normal to Room Light Bone or Joint Aches: 0= None Runny Nose/ Eye Tearin= None GI Upset > 30mins: 0= None Tremor Observation of Outstretched Hands: 0= None Yawning Observation: 0= None Anxiety or Irritability: 1=Feels Anxious/Irritable Goose Flesh Skin: 0=Smooth Skin COWS Score: 5 S Progress Note (SOAP) Subjective: Anxious (Mild), Sweating (Mild). Objective: PATIENT A & O X 3, OBSERVED AMBULATING ON UNIT UNASSISTED. IN NO ACUTE DISTRESS. 10/10/18 19:10 Vital Signs Temperature 98.2 F 10/10/18 09:34 Pulse Rate 105 H 10/10/18 09:34 Respiratory Rate 16 10/10/18 09:34 Blood Pressure 140/78 10/10/18 09:34 O2 Sat by Pulse Oximetry (%) Laboratory Tests 10/06/18 10/06/18 10/06/18 09:40 09:40 09:40 WBC 7.4 RBC 4.53 Hgb 12.9 Hct 38.1 MCV 84.1 MCH 28.6 MCHC 33.9 RDW 14.4 Plt Count 253 D MPV 8.7 Sodium 139 Potassium 4.4 Chloride 105 Carbon Dioxide 28 Anion Gap 6 L BUN 16 Creatinine 0.7 Creat Clearance w eGFR 93.16 Random Glucose 82 Calcium 9.6 Total Bilirubin 0.4 AST 12 L ALT 18 Alkaline Phosphatase 106 Total Protein 7.6 Albumin 4.2 Urine Color Urine Appearance Urine pH Ur Specific [place] Urine Protein Urine Glucose (UA) Urine Ketones Urine Blood Urine Nitrite Urine Bilirubin Urine Urobilinogen Ur Leukocyte Esterase Urine WBC (Auto) Urine RBC (Auto) Urine Casts (Auto) U Epithel Cells (Auto) Urine Bacteria (Auto) POC Urine HCG, Qual RPR Titer Nonreactive 10/06/18 10/06/18 10/08/18 14:50 16:17 07:00 WBC RBC Hgb Hct MCV MCH MCHC RDW Plt Count MPV Sodium Potassium Chloride Carbon Dioxide Anion Gap BUN Creatinine Creat Clearance w eGFR Random Glucose Calcium Total Bilirubin AST ALT Alkaline Phosphatase Total Protein Albumin Urine Color Yellow Yellow Urine Appearance Cloudy Clear Urine pH 6.5 5.5 Ur Specific [place] 1.024 1.010 Urine Protein Negative Negative Urine Glucose (UA) Negative Negative Urine Ketones Negative Negative Urine Blood Negative Negative Urine Nitrite Negative Negative Urine Bilirubin Negative Negative Urine Urobilinogen 0.2 0.2 Ur Leukocyte Esterase 2+ H 1+ H Urine WBC (Auto) 23 7 Urine RBC (Auto) 2 3 Urine Casts (Auto) 13 1 U Epithel Cells (Auto) 13.3 3.3 Urine Bacteria (Auto) 819.8 68.6 POC Urine HCG, Qual Negative RPR Titer LABS NOTED. Assessment: 10/10/18 19:11 COMPLETION OF DETOX REGIMEN. Plan: SINCE PATIENT REPORTS THAT CURRENT WITHDRAWAL / DETOX SYMPTOMS ARE MINIMAL IN DEGREE AND THAT SHE FEELS WELL OVERALL, AT PATIENTS REQUEST, SHE WAS GRANTED AN EARLY DISCHARGE TODAY FROM DETOX UNIT TODAY SO THAT SHE MAY PROCEED ON TO AFTERCARE PLAN OF [facility] ([place], [place]).
--- NOTE | 2018-10-10 19:19 | DS ---
[facility] Detox Discharge Summary Admission Date: 10/06/18 Discharge Date: 10/10/18 - History Present History: Alcohol Dependence, Cocaine Dependence, Opioid Dependence Additional Comments: PATIENT REPORTS THAT CURRENT WITHDRAWAL / DETOX SYMPTOMS ARE RELATIVELY MINIMAL IN DEGREE AND THAT SHE FEELS WELL OVERALL AT TIME OF DISCHARGE FROM DETOX UNIT. PATIENT GOING ON TODAY TO [facility] ([place], [place]) FOR AFTERCARE. PATIENT WAS DISCHARGED FROM DETOX UNIT IN STABLE MEDICAL CONDITION. Pertinent Past History: History Of Syncope, HTN, P.T.S.D., Anxiety, Depression, Hep C, Bipolar Disorder , History Of Heart Murmur. - Physical Exam Results Vital Signs: Vital Signs Temperature 98.2 F 10/10/18 09:34 Pulse Rate 105 H 10/10/18 09:34 Respiratory Rate 16 10/10/18 09:34 Blood Pressure 140/78 10/10/18 09:34 O2 Sat by Pulse Oximetry (%) Pertinent Admission Physical Exam Findings: WITHDRAWAL SYMPTOMS. Laboratory Tests 10/06/18 10/06/18 10/06/18 09:40 09:40 09:40 WBC 7.4 RBC 4.53 Hgb 12.9 Hct 38.1 MCV 84.1 MCH 28.6 MCHC 33.9 RDW 14.4 Plt Count 253 D MPV 8.7 Sodium 139 Potassium 4.4 Chloride 105 Carbon Dioxide 28 Anion Gap 6 L BUN 16 Creatinine 0.7 Creat Clearance w eGFR 93.16 Random Glucose 82 Calcium 9.6 Total Bilirubin 0.4 AST 12 L ALT 18 Alkaline Phosphatase 106 Total Protein 7.6 Albumin 4.2 Urine Color Urine Appearance Urine pH Ur Specific Hazen Urine Protein Urine Glucose (UA) Urine Ketones Urine Blood Urine Nitrite Urine Bilirubin Urine Urobilinogen Ur Leukocyte Esterase Urine WBC (Auto) Urine RBC (Auto) Urine Casts (Auto) U Epithel Cells (Auto) Urine Bacteria (Auto) POC Urine HCG, Qual RPR Titer Nonreactive 10/06/18 10/06/18 10/08/18 14:50 16:17 07:00 WBC RBC Hgb Hct MCV MCH MCHC RDW Plt Count MPV Sodium Potassium Chloride Carbon Dioxide Anion Gap BUN Creatinine Creat Clearance w eGFR Random Glucose Calcium Total Bilirubin AST ALT Alkaline Phosphatase Total Protein Albumin Urine Color Yellow Yellow Urine Appearance Cloudy Clear Urine pH 6.5 5.5 Ur Specific [place] 1.024 1.010 Urine Protein Negative Negative Urine Glucose (UA) Negative Negative Urine Ketones Negative Negative Urine Blood Negative Negative Urine Nitrite Negative Negative Urine Bilirubin Negative Negative Urine Urobilinogen 0.2 0.2 Ur Leukocyte Esterase 2+ H 1+ H Urine WBC (Auto) 23 7 Urine RBC (Auto) 2 3 Urine Casts (Auto) 13 1 U Epithel Cells (Auto) 13.3 3.3 Urine Bacteria (Auto) 819.8 68.6 POC Urine HCG, Qual Negative RPR Titer LABS NOTED. - Treatment Hospital Course: Detox Protocol Followed, Detoxed Safely, Responded well, Discharged Condition Good, Rehab Referral Accepted Patient has Accepted a Rehab Referral to: [facility] ([place], [place]). - Medication Discharge Medications: Ambulatory Orders Gabapentin [Neurontin -] 300 mg PO TID #90 capsule 08/12/18 Gabapentin [Neurontin -] 300 mg PO TID #90 capsule 10/06/18 - Diagnosis (1) Alcohol dependence with uncomplicated withdrawal Status: Acute (2) Cocaine dependence Status: Acute Qualifiers: Substance use status: in withdrawal Qualified Code(s): F14.23 - Cocaine dependence with withdrawal (3) Opioid dependence with withdrawal Status: Acute (4) Bipolar disorder Status: Chronic Qualifiers: Active/Remission status: remission status unspecified Qualified Code(s): F31.9 - Bipolar disorder, unspecified (5) Hypertension Status: Chronic Qualifiers: Hypertension type: essential hypertension Qualified Code(s): I10 - Essential (primary) hypertension (6) PTSD (post-traumatic stress disorder) Status: Chronic (7) Hepatitis C Status: Resolved Qualifiers: Viral hepatitis chronicity: chronic Hepatic coma status: without hepatic coma Qualified Code(s): B18.2 - Chronic viral hepatitis C - AMA Did Patient Leave Against Medical Advice: No
[2018-10-11] MEDS ORDERED: METHADONE HCL 5 MG TABLET (FOR DETOX USE ONLY) PO ONE (06:00)
== END 2018-10-10 10:09 | disposition home or self-care (01) | DRG 773 ==
LOC: YASAS 08:29 → Y6N 09:59
PROVIDERS: ADMIT Surgery; ATTEND Surgery
PROC: HZ2ZZZZ Detoxification Services for Substance Abuse Treatment (ICD-10-PCS; principal; 2018-10-06)
DX: F11.23 Opioid dependence with withdrawal (principal); F10.230 Alcohol dependence with withdrawal, uncomplicated; F14.20 Cocaine dependence, uncomplicated; F43.10 Post-traumatic stress disorder, unspecified; F31.9 Bipolar disorder, unspecified; F41.8 Other specified anxiety disorders; F32.9 Major depressive disorder, single episode, unspecified; I10 Essential (primary) hypertension; R55 Syncope and collapse
CPT/HCPCS: 36415; 80053; 81003; 81025; 85027; 86593; J0735

== ENCOUNTER 2018-11-02 10:50 | Inpatient (IN) | payer OTHER | END 2018-11-06 09:32 | disposition home or self-care (01) | LOC: YASAS 10:50 → Y6N 18:14 ==

== ENCOUNTER 2018-12-03 11:04 | Inpatient (IN) | payer OTHER ==
[2018-12-03 11:44] VITALS: BMI 36.8
--- NOTE | 2018-12-03 14:14 | HP ---
COWS - Scale Resting Pulse: 0= [place] 80 or Below Sweatin= Chills/Flushing Restless Observation: 1= Difficult to Sit Still Pupil Size: 1= Pupils >than Normal Bone or Joint Aches: 2= Severe Diffuse Aches Runny Nose/ Eye Tearin= Runny Nose/Eyes GI Upset > 30mins: 2= Nausea/Diarrhea Tremor Observation: 2= Slight Tremor Visible Yawning Observation: 1= 1-2x During Session Anxiety or Irritability: 2=Irritable/Anxious Goose Flesh Skin: 0=Smooth Skin COWS Score: 14 CIWA Score Nausea/Vomitin Muscle Tremors: 2 Anxiety: 2 Agitation: 2 Paroxysmal Sweats: 1-Minimal Palms Moist Orientation: 0-Oriented Tacttile Disturbances: 1-Very Mild Itch/Numbness Auditory Disturbances: 1-Very Mild Visual Disturbances: 0-None Headache: 2-Mild CIWA-Ar Total Score: 13 - Admission Criteria OASAS Guidelines: Admission for Medically Managed Detox: Requires at least one of the followin. CIWA greater than 12 2. Seizures within the past 24 hours 3. Delirium tremens within the past 24 hours 4. Hallucinations within the past 24 hours 5. Acute intervention needed for co occurring medical disorder 6. Acute intervention needed for co occurring psychiatric disorder 7. Severe withdrawal that cannot be handled at a lower level of care (continued vomiting, continued diarrhea, abnormal vital signs) requiring intravenous medication and/or fluids 8. Admission ROS [facility] Chief Complaint: i need help to stop using heroin,alcohol,cocaine Allergies/Adverse Reactions: Allergies Allergy/AdvReac Type Severity Reaction Status Date / Time No Known Allergies Allergy Verified 12/03/18 11:37 History of Present Illness: this 38 years old female with niko,alcohol and cocaine dependence,seeking detox ,withdrawal symptom, multiple admissions in detox,last 11/02/18 to 11/06/18 but keep relapsing hypertension bipolar disorder longest sobriety 18 months plan for rehab hepatitis c Exam Limitations: No Limitations - Ebola screening Have you traveled outside of the country in the last 21 days: No (N) Have you had contact with anyone from an Ebola affected area: No Do you have a fever: No - Review of Systems Constitutional: No Symptoms Reported, Chills, Malaise, Night Sweats, Changes in sleep, Weakness EENT: reports: Tearing, Nose Congestion Respiratory: reports: No Symptoms reported Cardiac: reports: No Symptoms Reported GI: reports: Diarrhea, Nausea, Abdominal cramping : reports: No Symptoms Reported Musculoskeletal: reports: Back Pain, Joint Pain, Muscle Pain, Joint Stiffness Integumentary: reports: Dryness Neuro: reports: Headache, Tremors Endocrine: reports: No Symptoms Reported Hematology: reports: No Symptoms Reported Psychiatric: reports: Judgement Intact, Mood/Affect Appropiate, Orientated x3 Other Systems: Reviewed and Negative Patient History - Patient Medical History Hx Anemia: No Hx Asthma: No Hx Chronic Obstructive Pulmonary Disease (COPD): No Hx Cancer: No Hx Cardiac Disorders: Yes (Hx of heart murmur.) Hx Congestive Heart Failure: No Hx Hypertension: Yes (Pt is not currently on meds.) Hx Hypercholesterolemia: No Hx Pacemaker: No HX Cerebrovascular Accident: No Hx Seizures: No Hx Dementia: No Hx Diabetes: No Hx Gastrointestinal Disorders: No Hx Liver Disease: No Hx Genitourinary Disorders: No Hx Sexually Transmitted Disorders: No Hx Renal Disease (ESRD): No Hx Thyroid Disease: No Hx Human Immunodeficiency Virus (HIV): No (Negative - last tested 10/26) Hx Hepatitis C: Yes (no treatment needed,folow up with pmd) Hx Depression: Yes Hx Suicide Attempt: No Hx Bipolar Disorder: Yes (on neurontin 300 mgs po tid last 2 days ago) Hx Schizophrenia: No - Patient Surgical History Past Surgical History: Yes Hx Neurologic Surgery: No Hx Cataract Extraction: No Hx Cardiac Surgery: No Hx Lung Surgery: No Hx Breast Surgery: No Hx Breast Biopsy: No Hx Abdominal Surgery: No Hx Appendectomy: No Hx Cholecystectomy: No Hx Genitourinary Surgery: No Hx Section: No Hx Orthopedic Surgery: No Hx Hysterectomy: No Other Surgical History: c/section x 2007, TONSILLECTOMY AT AGE 10 Anesthesia Reaction: No - PPD History Previous Implant?: Yes Documented Results: Negative w/proof Implanted On Prior [facility] Admission?: Yes Date: 04/01/18 Results: NEGATIVE PPD to be Administered?: No - Reproductive History Patient is a Female of Child Bearing Age (11 -55 yrs old): Yes Last Menstrual Period: 11/10/18 Patient : No - Smoking Cessation Smoking history: Never smoked Have you smoked in the past 12 months: No Hx Chewing Tobacco Use: No - Substance & Tx. History Hx Alcohol Use: Yes Hx Substance Use: Yes Substance Use Type: Alcohol, Cocaine, Heroin Hx Substance Use Treatment: Yes ([facility] 11/02/18 to 11/06/18) - Substances abused Alcohol Substance route: Oral Frequency: Daily Amount used: 1 pint of vodka and 3- 4 cans beers ( 24 ounce beers Age of first use: 19 Date of last use: 12/03/18 Cocaine Substance route: Smoking Frequency: Daily Amount used: $100 daily Age of first use: 34 Date of last use: 11/02/18 Alprazolam (Xanax) Substance route: Oral Frequency: 1-2 times per week Amount used: 2 mgs Age of first use: 24 Date of last use: 10/17/18 Heroin Substance route: Inhalation Frequency: Daily Amount used: 10 bags Age of first use: 26 Date of last use: 12/03/18 Crack Substance route: Smoking Frequency: Daily Amount used: $50 Age of first use: 34 Date of last use: 12/02/18 Family Disease History - Family Disease History Family Disease History: Other: Father (Alcohol,sober), Mother (Acohol,sober), Brother (heroin) Admission Physical Exam S - Vital Signs Vital Signs: Vital Signs - 24 hr 12/03/18 11:39 Temperature 98.0 F Pulse Rate 62 Respiratory 18 Rate Blood Pressure 141/81 - Physical General Appearance: Yes: Moderate Distress, Tremorous, Irritable, Sweating, Anxious HEENTM: Yes: Normal ENT Inspection, Normocephalic, FADUMO Respiratory: Yes: Lungs Clear, Normal Breath Sounds, No Respiratory Distress Neck: Yes: Within Normal Limits, Supple, Trachea in good position Breast: Yes: Breast Exam Deferred Cardiology: Yes: Within Normal Limits, Regular Rhythm, Regular Rate, S1, S2 Abdominal: Yes: Within Normal Limits, Normal Bowel Sounds, Non Tender, Soft Genitourinary: Yes: Within Normal Limits Back: Yes: Muscle Spasm Musculoskeletal: Yes: full range of Motion, Back pain, Muscle Pain Extremities: Yes: Normal Range of Motion, Tremors Neurological: Yes: barrel cleaner II-XII NML intact, Fully Oriented, Alert, Motor Strength 5/5 Integumentary: Yes: Dry Lymphatic: Yes: Within Normal Limits - Diagnostic (1) Opioid dependence with withdrawal Current Visit: Yes Status: Acute (2) Alcohol dependence with uncomplicated withdrawal Current Visit: No Status: Acute (3) Cocaine dependence Current Visit: No Status: Acute Qualifiers: Substance use status: in withdrawal Qualified Code(s): F14.23 - Cocaine dependence with withdrawal (4) Hypertension Current Visit: No Status: Chronic Qualifiers: Hypertension type: essential hypertension Qualified Code(s): I10 - Essential (primary) hypertension (5) Dehydration Current Visit: Yes Status: Acute (6) Hepatitis C Current Visit: No Status: Resolved Qualifiers: Viral hepatitis chronicity: chronic Hepatic coma status: without hepatic coma Qualified Code(s): B18.2 - Chronic viral hepatitis C (7) Bipolar disorder Current Visit: Yes Status: Acute (8) Bipolar disorder Current Visit: No Status: Chronic Qualifiers: Active/Remission status: remission status unspecified Qualified Code(s): F31.9 - Bipolar disorder, unspecified Cleared for Admission [facility] - Detox or Rehab S Level of Care: Medically Managed Detox Regimen/Protocol: Methadone/Librium Breathalyzer - Breathalyzer Breathalyzer: 0 POC Urine test - Test device test lot number: [id number] Expiration date: 03/09/20 - Control test control: Yes Urine Drug Screen - Test Device Lot number: [id number] Expiration date: 08/07/20 - Control Is test valid?: Yes - Results Drug screen NEGATIVE: No Urine drug screen results: TIFFANY-Cocaine, FEN-Fentanyl, MOP-Opiates Inpatient Rehab Admission - Rehab Decision to Admit Inpatient rehab admission?: No
[2018-12-03] MEDS ORDERED: chlordiazePOXIDE HCL 25 MG CAPSULE PO PRN (14:29)
[2018-12-03] MEDS ORDERED: MAG HYDROX/AL HYDROX/SIMETH 30 ML UNIT-DOSE CUP PO PRN (14:30)
[2018-12-03] MEDS ORDERED: ACETAMINOPHEN 325 MG TABLET (FP) PO PRN ×2 (14:30)
[2018-12-03] MEDS ORDERED: MAGNESIUM HYDROX 2400MG/30ML ORAL SUSPENSION 30 ML CUP PO PRN (14:30)
[2018-12-03] MEDS ORDERED: IBUPROFEN 400 MG TABLET (FP) PO PRN (14:30)
[2018-12-03] MEDS ORDERED: MAGNESIUM CITRATE 300 ML BOTTLE PO PRN (14:30)
[2018-12-03] MEDS ORDERED: MENTHOL/PHENOL 1 EACH UD MM PRN (14:30)
[2018-12-03] MEDS ORDERED: BISMUTH SUBSALICYLATE 524 MG/30 ML UD PO PRN (14:30)
[2018-12-03] MEDS ORDERED: METHADONE HCL 10 MG TABLET (FOR DETOX USE ONLY) PO ONE ×2 (15:00→23:00)
[2018-12-03 17:01] LABS: ALBUMIN 3.7 g/dl (3.4-5.0); BILIRUBIN,TOTAL 0.4 mg/dL (0.2-1); BLOOD UREA NITROGEN 10.4 mg/dL (7-18); CALCIUM 8.8 mg/dL (8.5-10.1); CREATININE 0.6 mg/dL (0.55-1.3); POTASSIUM 4.4 mmol/L (3.5-5.1); TOT PROT 7.1 g/dl (6.4-8.2)
[2018-12-03] MEDS: chlordiazePOXIDE HCL 25 MG CAPSULE PO SCH ×2 (17:02→22:50)
[2018-12-03 18:18] LABS: HEMOGLOBIN 11.7 GM/dL (10.7-15.3); MCH 27.9 pg (25.7-33.7); MCHC 33.3 g/dl (32.0-36.0); MEAN CELL VOLUME 83.7 fl (80-96); MEAN PLT VOLUME 8.6 fl (7.5-11.1); PLATELET COUNT 280 K/MM3 (134-434); RBC 4.19 M/mm3 (3.60-5.2); RDW 14.3 % (11.6-15.6); WHITE BLOOD COUNT 7.8 K/mm3 (4.0-10.0)
[2018-12-03] MEDS: GABAPENTIN 400 MG CAPSULE (FP) PO SCH (22:50)
[2018-12-03] MEDS: MELATONIN 5 MG TABLETS PO PRN (22:51)
[2018-12-03] MEDS: THIAMINE HCL 100 MG TABLET (FP) PO SCH (23:41)
[2018-12-04] MEDS: chlordiazePOXIDE HCL 25 MG CAPSULE PO SCH ×4 (06:05→22:19)
[2018-12-04] MEDS: GABAPENTIN 400 MG CAPSULE (FP) PO SCH ×3 (06:05→22:19)
[2018-12-04] MEDS ORDERED: METHADONE HCL 10 MG TABLET (FOR DETOX USE ONLY) PO ONE (10:00)
[2018-12-04] MEDS: PRENATAL VITAMINS W/ FOLIC ACID TABLET (FP) PO SCH (10:35)
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
[2018-12-04] MEDS: hydrOXYzine PAMOATE 25 MG CAPSULE (FP) PO PRN (12:22)
[2018-12-04] MEDS: METHOCARBAMOL 500 MG TABLET PO PRN ×2 (12:23→22:21)
[2018-12-04] MEDS: cloNIDine HCL 0.1 MG TABLET PO PRN ×2 (12:23→22:21)
--- NOTE | 2018-12-04 12:28 | PN ---
[facility] CIWA - CIWA Score Nausea/Vomitin-No Nausea/No Vomiting Muscle Tremors: 3 Anxiety: 2 Agitation: 3 Paroxysmal Sweats: 3 Orientation: 0-Oriented Tacttile Disturbances: 0-None Auditory Disturbances: 0-None Visual Disturbances: 0-None Headache: 0-None Present CIWA-Ar Total Score: 11 S COWS - Scale Resting Pulse: 0= [place] 80 or Below Sweatin= Chills/Flushing Restless Observation: 1= Difficult to Sit Still Pupil Size: 0= Normal to Room Light Bone or Joint Aches: 2= Severe Diffuse Aches Runny Nose/ Eye Tearin= Nasal Congestion GI Upset > 30mins: 0= None Tremor Observation of Outstretched Hands: 1= Tremor Warren, Not Seen Yawning Observation: 1= 1-2x During Session Anxiety or Irritability: 1=Feels Anxious/Irritable Goose Flesh Skin: 0=Smooth Skin COWS Score: 8 S Progress Note (SOAP) Subjective: sweats interrupted sleep agitation body ache Objective: 12/04/18 12:27 Vital Signs Temperature 99.3 F 12/04/18 09:37 Pulse Rate 74 12/04/18 09:37 Respiratory Rate 18 12/04/18 09:37 Blood Pressure 116/69 12/04/18 09:37 O2 Sat by Pulse Oximetry (%) Laboratory Tests 12/03/18 12/03/18 12/03/18 14:15 14:15 14:15 WBC 7.8 RBC 4.19 Hgb 11.7 Hct 35.0 MCV 83.7 MCH 27.9 MCHC 33.3 RDW 14.3 Plt Count 280 MPV 8.6 Sodium 139 Potassium 4.4 Chloride 104 Carbon Dioxide 29 Anion Gap 6 L BUN 10.4 Creatinine 0.6 Est GFR (CKD-EPI)AfAm 133.07 Est GFR (CKD-EPI)NonAf 114.82 Random Glucose 81 Calcium 8.8 Total Bilirubin 0.4 AST 9 L ALT 16 Alkaline Phosphatase 86 Total Protein 7.1 Albumin 3.7 RPR Titer Nonreactive HIV 1&2 Antibody Screen HIV P24 Antigen 12/03/18 14:15 WBC RBC Hgb Hct MCV MCH MCHC RDW Plt Count MPV Sodium Potassium Chloride Carbon Dioxide Anion Gap BUN Creatinine Est GFR (CKD-EPI)AfAm Est GFR (CKD-EPI)NonAf Random Glucose Calcium Total Bilirubin AST ALT Alkaline Phosphatase Total Protein Albumin RPR Titer HIV 1&2 Antibody Screen Negative HIV P24 Antigen Negative labs noted aaox3 ambulating no acute distress Assessment: 12/04/18 12:27 mild withdrawal sx Plan: continue detox increase fluids
[2018-12-04] MEDS: SUVOREXANT 10 MG TABLET PO PRN (22:18)
[2018-12-04] MEDS: THIAMINE HCL 100 MG TABLET (FP) PO SCH (22:19)
[2018-12-04] MEDS: MELATONIN 5 MG TABLETS PO PRN (22:19)
[2018-12-05] MEDS: GABAPENTIN 400 MG CAPSULE (FP) PO SCH ×3 (06:09→22:41)
[2018-12-05] MEDS: chlordiazePOXIDE HCL 25 MG CAPSULE PO SCH ×2 (06:09→10:52)
[2018-12-05] MEDS ORDERED: METHADONE HCL 10 MG TABLET (FOR DETOX USE ONLY) PO ONE (10:00)
[2018-12-05] MEDS: PRENATAL VITAMINS W/ FOLIC ACID TABLET (FP) PO SCH (10:52)
[2018-12-05] MEDS: hydrOXYzine PAMOATE 25 MG CAPSULE (FP) PO PRN (12:26)
[2018-12-05] MEDS: METHOCARBAMOL 500 MG TABLET PO PRN (12:26)
[2018-12-05] MEDS: cloNIDine HCL 0.1 MG TABLET PO PRN (12:26)
--- NOTE | 2018-12-05 12:39 | PN ---
[facility] CIWA - CIWA Score Nausea/Vomitin-No Nausea/No Vomiting Muscle Tremors: 2 Anxiety: 2 Agitation: 3 Paroxysmal Sweats: 2 Orientation: 0-Oriented Tacttile Disturbances: 0-None Auditory Disturbances: 0-None Visual Disturbances: 0-None Headache: 0-None Present CIWA-Ar Total Score: 9 BHS COWS - Scale Resting Pulse: 0= [place] 80 or Below Sweatin= Chills/Flushing Restless Observation: 1= Difficult to Sit Still Pupil Size: 0= Normal to Room Light Bone or Joint Aches: 0= None Runny Nose/ Eye Tearin= Nasal Congestion GI Upset > 30mins: 0= None Tremor Observation of Outstretched Hands: 1= Tremor Webb, Not Seen Yawning Observation: 1= 1-2x During Session Anxiety or Irritability: 1=Feels Anxious/Irritable Goose Flesh Skin: 0=Smooth Skin COWS Score: 6 S Progress Note (SOAP) Subjective: sweats tired interrupted sleep Objective: 12/05/18 12:38 Vital Signs Temperature 97.9 F 12/05/18 09:30 Pulse Rate 68 12/05/18 09:30 Respiratory Rate 18 12/05/18 09:30 Blood Pressure 142/76 12/05/18 09:30 O2 Sat by Pulse Oximetry (%) Laboratory Tests 12/03/18 12/03/18 12/03/18 14:15 14:15 14:15 WBC 7.8 RBC 4.19 Hgb 11.7 Hct 35.0 MCV 83.7 MCH 27.9 MCHC 33.3 RDW 14.3 Plt Count 280 MPV 8.6 Sodium 139 Potassium 4.4 Chloride 104 Carbon Dioxide 29 Anion Gap 6 L BUN 10.4 Creatinine 0.6 Est GFR (CKD-EPI)AfAm 133.07 Est GFR (CKD-EPI)NonAf 114.82 Random Glucose 81 Calcium 8.8 Total Bilirubin 0.4 AST 9 L ALT 16 Alkaline Phosphatase 86 Total Protein 7.1 Albumin 3.7 RPR Titer Nonreactive HIV 1&2 Antibody Screen HIV P24 Antigen 12/03/18 14:15 WBC RBC Hgb Hct MCV MCH MCHC RDW Plt Count MPV Sodium Potassium Chloride Carbon Dioxide Anion Gap BUN Creatinine Est GFR (CKD-EPI)AfAm Est GFR (CKD-EPI)NonAf Random Glucose Calcium Total Bilirubin AST ALT Alkaline Phosphatase Total Protein Albumin RPR Titer HIV 1&2 Antibody Screen Negative HIV P24 Antigen Negative aaox3 ambulating no acute distress Assessment: 12/05/18 12:39 mild withdrawal sx Plan: continue detox increase fluids
[2018-12-05] MEDS ORDERED: chlordiazePOXIDE HCL 10 MG CAPSULE PO PRN (17:00)
[2018-12-05] MEDS: chlordiazePOXIDE HCL 10 MG CAPSULE PO SCH ×2 (17:37→22:42)
[2018-12-05] MEDS: THIAMINE HCL 100 MG TABLET (FP) PO SCH (22:42)
[2018-12-05] MEDS: SUVOREXANT 10 MG TABLET PO PRN (22:43)
[2018-12-06] MEDS: GABAPENTIN 400 MG CAPSULE (FP) PO SCH ×3 (05:58→22:24)
[2018-12-06] MEDS: chlordiazePOXIDE HCL 10 MG CAPSULE PO SCH ×3 (05:58→18:13)
[2018-12-06] MEDS ORDERED: METHADONE HCL 5 MG TABLET (FOR DETOX USE ONLY) ONE (09:53)
[2018-12-06] MEDS ORDERED: METHADONE HCL 10 MG TABLET (FOR DETOX USE ONLY) ONE (09:54)
[2018-12-06] MEDS ORDERED: METHADONE (DETOX) 10 MG, METHADONE (DETOX) 5 MG PO ONE (10:00)
[2018-12-06] MEDS ORDERED: METHADONE HCL 10 MG TABLET (FOR DETOX USE ONLY) PO ONE (10:00)
[2018-12-06] MEDS: PRENATAL VITAMINS W/ FOLIC ACID TABLET (FP) PO SCH (10:39)
[2018-12-06] MEDS: hydrOXYzine PAMOATE 25 MG CAPSULE (FP) PO PRN (10:41)
--- NOTE | 2018-12-06 11:35 | PN ---
[facility] CIWA - CIWA Score Nausea/Vomitin-No Nausea/No Vomiting Muscle Tremors: 2 Anxiety: 2 Agitation: 0-Normal Activity Paroxysmal Sweats: 3 Orientation: 0-Oriented Tacttile Disturbances: 0-None Auditory Disturbances: 0-None Visual Disturbances: 0-None Headache: 2-Mild CIWA-Ar Total Score: 9 BHS COWS - Scale Resting Pulse: 0= [place] 80 or Below Sweatin= Chills/Flushing Restless Observation: 1= Difficult to Sit Still Pupil Size: 0= Normal to Room Light Bone or Joint Aches: 0= None Runny Nose/ Eye Tearin= None GI Upset > 30mins: 0= None Tremor Observation of Outstretched Hands: 1= Tremor Robert, Not Seen Yawning Observation: 1= 1-2x During Session Anxiety or Irritability: 2=Irritable/Anxious Goose Flesh Skin: 0=Smooth Skin COWS Score: 6 BHS Progress Note (SOAP) Subjective: c/o anxiety, irritability, and sweats Objective: 12/06/18 11:34 Vital Signs 12/06/18 12/06/18 06:00 10:56 Temperature 97.9 F 99.1 F Pulse Rate 63 81 Respiratory 18 18 Rate Blood Pressure 135/78 138/84 Lab Results WBC 7.8 K/mm3 (4.0-10.0) 12/03/18 14:15 RBC 4.19 M/mm3 (3.60-5.2) 12/03/18 14:15 Hgb 11.7 GM/dL (10.7-15.3) 12/03/18 14:15 Hct 35.0 % (32.4-45.2) 12/03/18 14:15 MCV 83.7 fl (80-96) 12/03/18 14:15 MCHC 33.3 g/dl (32.0-36.0) 12/03/18 14:15 RDW 14.3 % (11.6-15.6) 12/03/18 14:15 Plt Count 280 K/MM3 (134-434) 12/03/18 14:15 Sodium 139 mmol/L (136-145) 12/03/18 14:15 Potassium 4.4 mmol/L (3.5-5.1) 12/03/18 14:15 Chloride 104 mmol/L (98-107) 12/03/18 14:15 Carbon Dioxide 29 mmol/L (21-32) 12/03/18 14:15 Anion Gap 6 MMOL/L (8-16) L 12/03/18 14:15 BUN 10.4 mg/dL (7-18) 12/03/18 14:15 Creatinine 0.6 mg/dL (0.55-1.3) 12/03/18 14:15 Random Glucose 81 mg/dL (74-106) 12/03/18 14:15 Calcium 8.8 mg/dL (8.5-10.1) 12/03/18 14:15 Labs noted. Assessment: 12/06/18 11:34 AOX3, in no acute distress Full ROM, ambulating in the unit. withdrawal symptoms. Plan: continue detox. increase fluids.
[2018-12-06] MEDS: METHOCARBAMOL 500 MG TABLET PO PRN ×2 (12:48→18:13)
[2018-12-06] MEDS: SUVOREXANT 10 MG TABLET PO PRN (22:23)
[2018-12-06] MEDS: THIAMINE HCL 100 MG TABLET (FP) PO SCH (22:24)
[2018-12-07] MEDS ORDERED: METHADONE HCL 5 MG TABLET (FOR DETOX USE ONLY) PO ONE (06:00)
[2018-12-07] MEDS: chlordiazePOXIDE HCL 10 MG CAPSULE PO SCH ×2 (06:01→17:44)
[2018-12-07] MEDS: GABAPENTIN 400 MG CAPSULE (FP) PO SCH ×3 (06:01→22:46)
[2018-12-07] MEDS: METHOCARBAMOL 500 MG TABLET PO PRN ×3 (09:44→23:31)
[2018-12-07] MEDS: hydrOXYzine PAMOATE 25 MG CAPSULE (FP) PO PRN (09:44)
[2018-12-07] MEDS ORDERED: METHADONE HCL 10 MG TABLET (FOR DETOX USE ONLY) PO ONE (10:00)
[2018-12-07] MEDS: PRENATAL VITAMINS W/ FOLIC ACID TABLET (FP) PO SCH (10:17)
--- NOTE | 2018-12-07 15:47 | PN ---
S Progress Note Note: Patient reports sleeping poorly on Belsomra 10 mg/hs. Will increase Belsomra dosage to 15 mg/hs
--- NOTE | 2018-12-07 17:23 | PN ---
[facility] CIWA - CIWA Score Nausea/Vomitin-No Nausea/No Vomiting Muscle Tremors: None Anxiety: 2 Agitation: 2 Paroxysmal Sweats: 2 Orientation: 0-Oriented Tacttile Disturbances: 0-None Auditory Disturbances: 0-None Visual Disturbances: 0-None Headache: 0-None Present CIWA-Ar Total Score: 6 S COWS - Scale Resting Pulse: 1= [place] 81-100 Sweatin= Chills/Flushing Restless Observation: 0= Sits Still Pupil Size: 0= Normal to Room Light Bone or Joint Aches: 1= Mild Discomfort Runny Nose/ Eye Tearin= None GI Upset > 30mins: 0= None Tremor Observation of Outstretched Hands: 0= None Yawning Observation: 0= None Anxiety or Irritability: 2=Irritable/Anxious Goose Flesh Skin: 0=Smooth Skin COWS Score: 5 S Progress Note (SOAP) Subjective: Interrupted sleep, anxious, angry Objective: 12/07/18 17:22 Last Vital Signs Temp Pulse Resp BP Pulse Ox 99 F 82 18 122/77 12/07/18 17:12 12/07/18 17:12 12/07/18 17:12 12/07/18 17:12 Laboratory Tests 12/03/18 12/03/18 12/03/18 14:15 14:15 14:15 WBC 7.8 RBC 4.19 Hgb 11.7 Hct 35.0 MCV 83.7 MCH 27.9 MCHC 33.3 RDW 14.3 Plt Count 280 MPV 8.6 Sodium 139 Potassium 4.4 Chloride 104 Carbon Dioxide 29 Anion Gap 6 L BUN 10.4 Creatinine 0.6 Est GFR (CKD-EPI)AfAm 133.07 Est GFR (CKD-EPI)NonAf 114.82 Random Glucose 81 Calcium 8.8 Total Bilirubin 0.4 AST 9 L ALT 16 Alkaline Phosphatase 86 Total Protein 7.1 Albumin 3.7 RPR Titer Nonreactive HIV 1&2 Antibody Screen HIV P24 Antigen 12/03/18 14:15 WBC RBC Hgb Hct MCV MCH MCHC RDW Plt Count MPV Sodium Potassium Chloride Carbon Dioxide Anion Gap BUN Creatinine Est GFR (CKD-EPI)AfAm Est GFR (CKD-EPI)NonAf Random Glucose Calcium Total Bilirubin AST ALT Alkaline Phosphatase Total Protein Albumin RPR Titer HIV 1&2 Antibody Screen Negative HIV P24 Antigen Negative Labs reviewed Assessment: 12/07/18 17:22 Withdrawal symptoms Plan: Continue detox Encouraged PO water intake Patient scheduled for discharge tomorrow
[2018-12-07] MEDS ORDERED: SUVOREXANT 10 MG TABLET PO PRN (22:00)
[2018-12-07] MEDS: THIAMINE HCL 100 MG TABLET (FP) PO SCH (22:46)
[2018-12-07] MEDS ORDERED: SUVOREXANT 10 MG, SUVOREXANT 5 MG PO PRN (22:49)
[2018-12-07] MEDS ORDERED: SUVOREXANT 10 MG TABLET PO ONE (23:21)
[2018-12-07] MEDS ORDERED: SUVOREXANT 5 MG TABLET ONE (23:22)
[2018-12-08] MEDS: GABAPENTIN 400 MG CAPSULE (FP) PO SCH (05:24)
[2018-12-08] MEDS ORDERED: METHADONE HCL 5 MG TABLET (FOR DETOX USE ONLY) PO ONE (06:00)
--- NOTE | 2018-12-08 09:42 | DS ---
[facility] Detox Discharge Summary Admission Date: 12/03/18 Discharge Date: 12/08/18 - History Present History: Alcohol Dependence, Opioid Dependence, MMTP - Physical Exam Results Vital Signs: Vital Signs Temperature 98.1 F 12/08/18 09:29 Pulse Rate 77 12/08/18 09:29 Respiratory Rate 17 12/08/18 09:29 Blood Pressure 154/80 12/08/18 09:29 O2 Sat by Pulse Oximetry (%) - Treatment Hospital Course: Detox Protocol Followed, Detoxed Safely, Responded well, Discharged Condition Good, Rehab Referral Accepted - Medication Discharge Medications: Ambulatory Orders Gabapentin [Neurontin -] 400 mg PO TID 12/03/18 - Diagnosis (1) Opioid dependence with withdrawal Current Visit: Yes Status: Chronic (2) Substance-induced sleep disorder Current Visit: Yes Status: Acute (3) Bipolar disorder Current Visit: Yes Status: Chronic (4) Hepatitis C Current Visit: Yes Status: Chronic Qualifiers: Viral hepatitis chronicity: chronic Hepatic coma status: without hepatic coma Qualified Code(s): B18.2 - Chronic viral hepatitis C (5) PTSD (post-traumatic stress disorder) Current Visit: Yes Status: Chronic (6) Alcohol dependence with uncomplicated withdrawal Current Visit: Yes Status: Chronic (7) Cocaine dependence Current Visit: Yes Status: Chronic Qualifiers: Substance use status: uncomplicated Qualified Code(s): F14.20 - Cocaine dependence, uncomplicated (8) Depression Current Visit: No Status: Acute Qualifiers: Major depression episode severity: unspecified (9) Substance induced mood disorder Current Visit: No Status: Acute (10) Substance-induced anxiety disorder Current Visit: No Status: Acute (11) Substance-induced sleep disorder Current Visit: No Status: Acute (12) Anxiety and depression Current Visit: No Status: Chronic (13) Hypertension Current Visit: Yes Status: Chronic Qualifiers: Hypertension type: essential hypertension Qualified Code(s): I10 - Essential (primary) hypertension (14) Drug-induced mood disorder Current Visit: No Status: Suspected (15) Hepatitis C Current Visit: Yes Status: Chronic Qualifiers: Viral hepatitis chronicity: chronic Hepatic coma status: without hepatic coma Qualified Code(s): B18.2 - Chronic viral hepatitis C - AMA Did Patient Leave Against Medical Advice: No (referred to [facility] inpatient rehab)
[2018-12-08] MEDS: hydrOXYzine PAMOATE 25 MG CAPSULE (FP) PO PRN (10:15)
[2018-12-08] MEDS: PRENATAL VITAMINS W/ FOLIC ACID TABLET (FP) PO SCH (10:15)
[2018-12-08] MEDS: METHOCARBAMOL 500 MG TABLET PO PRN (10:15)
[2018-12-08 13:09] VITALS: BP 137/93; PULSE 74; TEMP 97.5
== END 2018-12-08 13:05 | disposition other institution (70) | DRG 773 ==
LOC: YASAS 11:04 → Y6N 14:34
PROVIDERS: ADMIT Surgery; ATTEND Surgery
PROC: HZ2ZZZZ Detoxification Services for Substance Abuse Treatment (ICD-10-PCS; principal; 2018-12-03)
DX: F11.23 Opioid dependence with withdrawal (principal); F10.230 Alcohol dependence with withdrawal, uncomplicated; F13.10 Sedative, hypnotic or anxiolytic abuse, uncomplicated; F43.10 Post-traumatic stress disorder, unspecified; F19.24 Other psychoactive substance dependence with psychoactive substance-induced mood disorder; F19.280 Other psychoactive substance dependence with psychoactive substance-induced anxiety disorder; F19.282 Other psychoactive substance dependence with psychoactive substance-induced sleep disorder; F31.9 Bipolar disorder, unspecified; F41.9 Anxiety disorder, unspecified; B18.2 Chronic viral hepatitis C; R01.1 Cardiac murmur, unspecified
CPT/HCPCS: 36415; 80053; 85027; 86593; 87389; J0735

== ENCOUNTER 2018-12-08 13:27 | Inpatient (IN) | payer OTHER ==
--- NOTE | 2018-12-08 13:26 | HP ---
[facility] Rehab Assess/Revision - Admission History Admitted to [facility]hab [facility] - Findings Detox History & Physical reviewed: Yes Concur with findings: Yes Inpatient Rehab Admission - Rehab Decision to Admit Inpatient rehab admission?: Yes - Initial Determination Are CD services needed?: Yes Free of communicable disease: Yes Not in need of hospitalization: Yes - Rehab Admission Criteria Previous failed treatment: Yes Poor recovery environment: Yes Comorbidities: Yes Lacks judgement: Yes Patient is meeting Inpatient Rehab admission criteria:: Yes
[~2018-12-08 13:27] MED LIST changes: +IBUPROFEN 400 MG TABLET (FP) PO PRN; +LOPERAMIDE HCL 2 MG CAPSULE PO PRN; +MAG HYDROX/AL HYDROX/SIMETH 30 ML UNIT-DOSE CUP PO PRN; +MAGNESIUM CITRATE 300 ML BOTTLE PO PRN; +MAGNESIUM HYDROX 2400MG/30ML ORAL SUSPENSION 30 ML CUP PO PRN; +MENTHOL/PHENOL 1 EACH UD MM PRN; -METHADONE HCL 10 MG TABLET (FOR DETOX USE ONLY) PO ONE; +NICOTINE POLACRILEX 4 MG GUM BUC PRN; +P-EPHED 60MG/TRIPROLIDI 2.5MG TABLET PO PRN; +guaiFENesin 200 MG/10 ML 10 ML UNIT-DOSE CUPS PO PRN
[2018-12-08] MEDS: GABAPENTIN 400 MG CAPSULE (FP) PO SCH ×2 (15:30→21:25)
[2018-12-08] MEDS: THIAMINE HCL 100 MG TABLET (FP) PO SCH (21:25)
[2018-12-08] MEDS: hydrOXYzine PAMOATE 50 MG CAPSULE (FP) PO PRN (21:26)
[2018-12-08] MEDS: ACETAMINOPHEN 325 MG TABLET (FP) PO PRN (21:26)
[2018-12-08] MEDS ORDERED: MELATONIN 5 MG TABLETS PO PRN (22:00)
[2018-12-09] MEDS: GABAPENTIN 400 MG CAPSULE (FP) PO SCH ×3 (06:47→21:00)
[2018-12-09] MEDS: hydrOXYzine PAMOATE 50 MG CAPSULE (FP) PO PRN ×2 (06:48→12:09)
[2018-12-09] MEDS: ACETAMINOPHEN 325 MG TABLET (FP) PO PRN (06:49)
[2018-12-09 07:22] VITALS: TEMP 98.5
[2018-12-09] MEDS: PRENATAL VITAMINS W/ FOLIC ACID TABLET (FP) PO SCH (10:17)
[2018-12-09] MEDS: NICOTINE 21 MG/24 HOURS TOPICAL PATCH TD SCH (10:17)
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
[2018-12-09] MEDS: THIAMINE HCL 100 MG TABLET (FP) PO SCH (21:00)
[2018-12-09] MEDS ORDERED: traZODone HCL 100 MG TABLET (FP) PO SCH (22:00)
[2018-12-10] MEDS: GABAPENTIN 400 MG CAPSULE (FP) PO SCH ×2 (06:51→13:49)
[2018-12-10] MEDS: hydrOXYzine PAMOATE 50 MG CAPSULE (FP) PO PRN ×2 (06:53→11:28)
[2018-12-10 07:46] VITALS: BP 132/88; PULSE 71
[2018-12-10] MEDS: NICOTINE 21 MG/24 HOURS TOPICAL PATCH TD SCH (10:08)
[2018-12-10] MEDS: PRENATAL VITAMINS W/ FOLIC ACID TABLET (FP) PO SCH (10:08)
--- NOTE | 2018-12-10 10:56 | PN ---
Psychiatric Progress Note Vital Signs: Vital Signs Period Temp Pulse Resp BP Sys/Poole Pulse Ox Last 24 Hr 98.5 F 71-80 18-18 132-153/88-90 Date of Session: 12/10/18 Chief Complaint:: " I feel so anxious and i have insomnia." HPI: Patient admitted to for alcohol, cocaine, and opioid dependence. Patient anxious and requesting additional medications for anxiety. ROS: Patient coherent, alert and oriented X3. Current Medications: Active Medications Generic Name Dose Route Start Last Admin Trade Name Freq PRN Reason Stop Dose Admin Acetaminophen 650 mg 12/08/18 13:26 12/09/18 06:49 Tylenol - PO 650 mg Q4H PRN Administration FEVER Al Hydroxide/Mg Hydroxide 30 ml 12/08/18 13:26 Mylanta Oral Suspension - PO Q6H PRN DYSPEPSIA Eucalyptus/Menthol/Phenol/Sorbitol 1 each 12/08/18 13:26 Cepastat Lozenge - MM Q4H PRN SORE THROAT Gabapentin 400 mg 12/08/18 14:00 12/10/18 06:51 Neurontin - PO 400 mg TID KATHE Administration Guaifenesin 10 ml 12/08/18 13:26 Robitussin - PO Q6H PRN COUGH Hydroxyzine Pamoate 50 mg 12/08/18 13:26 12/10/18 06:53 Vistaril - PO 50 mg Q4H PRN Administration AGITATION Ibuprofen 400 mg 12/08/18 13:26 Motrin - PO Q6H PRN Pain Level 4-6 Loperamide HCl 4 mg 12/08/18 13:26 Imodium - PO Q6H PRN DIARRHEA Magnesium Citrate 300 ml 12/08/18 13:26 Citroma - PO Q48H PRN CONSTIPATION Magnesium Hydroxide 30 ml 12/08/18 13:26 Milk Of Magnesia - PO DAILY PRN CONSTIPATION Melatonin 5 mg 12/08/18 22:00 12/08/18 21:27 Melatonin PO 5 mg HS PRN Administration INSOMNIA Nicotine Polacrilex 4 mg 12/08/18 13:26 Nicorette Gum - BUC Q2H PRN NICOTINE REPLACEMENT RX Multivit/Folic Acid/Iron 1 tab 12/09/18 10:00 12/10/18 10:08 Vitamins (Sjr) - PO 1 tab DAILY KATHE Administration Pseudoephedrine/Triprolidine 1 combo 12/08/18 13:26 Actifed - PO TID PRN NASAL CONGESTION Thiamine HCl 100 mg 12/08/18 22:00 12/09/18 21:00 Vitamin B1 - PO 100 mg HS KATHE Administration Trazodone HCl 100 mg 12/09/18 22:00 12/09/18 21:01 Desyrel - PO 100 mg HS KATHE Administration Medication(s) Change(s): Yes. Current Side Effect: No Lab tests ordered: No Lab tests reviewed: Yes Provider note:: Patient reports feeling anxious and restless. Ms. Hay also reports insomnia. Patient was given trazodone 100mg last night but states the medication was ineffective. Will d/c gabapentin 400mg TID and order gabapentin 600m TID to help manage anxiety. Patient also encouraged to accept vistaril 50mg q4h as needed. Will d/c trazodone 100m and order seroquel 50mg for insomnia. Benefits and side effects discussed. Verbal consent given. Total face to face time:: 25 Mental Status Exam - Mental Status Exam Alert and Oriented to: Time, Place, Person Cognitive Function: Good Patient Appearance: Well Groomed Mood: Anxious Affect: Appropriate Patient Behavior: Appropriate, Cooperative Speech Pattern: Appropriate Voice Loudness: Normal Thought Process: Goal Oriented Thought Disorder: Not Present Hallucinations: Denies Suicidal Ideation: Denies Homicidal Ideation: Denies Insight/Judgement: Poor Sleep: Poorly Appetite: Fair Muscle strength/Tone: Normal Gait/Station: Normal Psychiatric Treatment Plan - Problem List (1) Substance-induced sleep disorder Comment: .. (2) Bipolar disorder Comment: .. (3) PTSD (post-traumatic stress disorder) Comment: .. (4) Alcohol dependence Qualifiers: Substance use status: uncomplicated Qualified Code(s): F10.20 - Alcohol dependence, uncomplicated (5) Cocaine dependence Qualifiers: Substance use status: uncomplicated Qualified Code(s): F14.20 - Cocaine dependence, uncomplicated
--- NOTE | 2018-12-10 13:40 | PN ---
[facility] COWS - Scale Resting Pulse: 0= VT 80 or Below Sweatin= Beads of Sweat on Face Restless Observation: 3= Extraneous Movement Pupil Size: 0= Normal to Room Light Bone or Joint Aches: 2= Severe Diffuse Aches Runny Nose/ Eye Tearin= Nasal Congestion GI Upset > 30mins: 3= Vomiting/Diarrhea Tremor Observation of Outstretched Hands: 4= Gross Tremor/Twitching Yawning Observation: 0= None Anxiety or Irritability: 2=Irritable/Anxious Goose Flesh Skin: 0=Smooth Skin COWS Score: 18 [facility] Progress Note (SOAP) Subjective: Patient requesting suboxone, experiencing craving, "I want to roll out of here. " Urges, isolating to avoid discussions about substance use because it triggers cravings. Patient used ETOH, Cocaine, and Heroin. UTOX upon admission showed Cocaine, fentany, and opioids. Patient is not and reports that she had a tubal ligation. Objective: See COWS assessment. A+O x3; lungs clear, abd soft, non-tender, non-distended, heart sounds regular. This report was requested by: Denisse Lee | Reference #: [id number] 12/10/18 13:35 Patient Name: Adela Hay Date: 1980 Address: [place] [address] Sex: Female Rx Written Patient Name: Adela Hay Date: 1980 Address: [place] [address] Sex: Female Rx Written Rx Dispensed Drug Quantity Days Supply Prescriber Name 10/15/2018 10/17/2018 chlordiazepoxide 25 mg capsule 8 2 Manuel Bales Patient Name: Adela Hay Date: 1980 Address: [address] [address] Sex: Female Rx Written Rx Dispensed Drug Quantity Days Supply Prescriber Name 07/16/2018 07/19/2018 lorazepam 1 mg tablet 15 3 Brittni Galdamez) 07/17/2018 07/18/2018 lorazepam 1 mg tablet 1 1 Rema Montenegro 12/10/18 13:39 Vital Signs (72 hours) 12/08/18 12/09/18 12/09/18 13:52 00:30 03:30 Temperature 98.6 F Pulse Rate 80 Respiratory 17 18 18 Rate Blood Pressure 133/84 12/09/18 12/10/18 12/10/18 07:22 03:30 07:17 Temperature 98.5 F 98.5 F Pulse Rate 69 80 Respiratory 18 18 18 Rate Blood Pressure 138/82 153/90 12/10/18 07:45 Temperature Pulse Rate 71 Respiratory Rate Blood Pressure 132/88 12/10/18 13:44 Assessment: Active withdrawal 12/10/18 13:40 Plan: Will start suboxone 2mg/day after the patient talks to the counselor about continuing suboxone treatment. Urine Toxicology, Patient has been her since December 08, 2018
--- NOTE | 2018-12-10 15:08 | PN ---
[facility] Progress Note Note: Notified by RN that patient requested to sign out AMA. Patient states her whom is also in rehab has to leave to go to work in the morning and she has to leave with him due to domestic partnership senior living status. Patient encouraged to stay in rehab but patient refused to stay and complete treatment. Risk factors of relapse and potential overdose explained to patient with signing out AMA. Patient to follow up with [facility] on 12/17/18 and advised to follow up with PCP within 72 hours of discharge. Patient is medically stable and denies SI/HI at this time. Vital Signs Temperature 98.5 F 12/10/18 07:17 Pulse Rate 71 12/10/18 07:45 Respiratory Rate 18 12/10/18 07:17 Blood Pressure 132/88 12/10/18 07:45 O2 Sat by Pulse Oximetry (%) Ambulatory Orders Gabapentin [Neurontin -] 400 mg PO TID 12/03/18
== END 2018-12-10 15:00 | disposition left against medical advice (07) | DRG 770 ==
LOC: YASAS 13:27 → Y3E 13:29
PROVIDERS: ADMIT Neuromusculoskeletal Medicine & OMM; ATTEND Neuromusculoskeletal Medicine & OMM
PROC: HZ42ZZZ Group Counseling for Substance Abuse Treatment, Cognitive-Behavioral (ICD-10-PCS; principal; 2018-12-08)
DX: F11.20 Opioid dependence, uncomplicated (principal); F10.20 Alcohol dependence, uncomplicated; F14.20 Cocaine dependence, uncomplicated; F19.282 Other psychoactive substance dependence with psychoactive substance-induced sleep disorder; F31.9 Bipolar disorder, unspecified; F43.10 Post-traumatic stress disorder, unspecified; I10 Essential (primary) hypertension; B19.20 Unspecified viral hepatitis C without hepatic coma